=== PATIENT | male | born 1955 | race Caucasian/White ===

== ENCOUNTER 2017-06-05 16:00 | Observation (INO) | payer MEDICAID, OTHER ==
[~2017-06-05] VITALS: Ht 185.4 cm; Wt 62.3 kg
[~2017-06-05 16:00] MED LIST: AMOX500T PO; ASPI325T PO; HYDR-3535 PO; LEVO.05 PO; XANA2TAB2 PO; blood pressure PO
[2017-06-05 16:04] VITALS: BP 188/86; PULSE 69; RESP 14; TEMP 97.7; O2SAT 69; O2SAT 99
[2017-06-05 17:00] LABS: AUTOMATED NEUTROPHIL # 5.5 TH/MM3 (1.8-7.7); BASOPHIL % 0.4 % (0.0-2.0); EOSINOPHIL # 0.1 TH/MM3 (0-0.4); EOSINOPHIL % 1.5 % (0.0-4.0); HEMATOCRIT 47.6 % (39.0-51.0); HEMOGLOBIN 16.1 GM/DL (13.0-17.0); LYMPH % 25.1 % (9.0-44.0); LYMPHOCYTE # 2.1 TH/MM3 (1.0-4.8); MEAN CELL VOLUME 84.6 FL (80.0-100.0); MEAN CORPUSCULAR HEMOGLOBIN 28.7 PG (27.0-34.0); MEAN CORPUSCULAR HGB CONC 33.9 % (32.0-36.0); MEAN PLATELET VOLUME 8.5 FL (7.0-11.0); MONO % 7.2 % (0.0-8.0); MONOCYTE # 0.6 TH/MM3 (0-0.9); NEUT % 65.8 % (16.0-70.0); PLATELET COUNT 273 TH/MM3 (150-450); RED BLOOD COUNT 5.63 MIL/MM3 (4.50-5.90); RED CELL DISTRIBUTION WIDTH 13.6 % (11.6-17.2); WHITE BLOOD COUNT 8.4 TH/MM3 (4.0-11.0)
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
[2017-06-05 17:18] LABS: ALKALINE PHOSPHATASE 97 U/L (45-117); TOTAL BILIRUBIN ADULT 0.4 MG/DL (0.2-1.0); TOTAL PROTEIN 8.2 GM/DL (6.4-8.2)
[2017-06-05 17:20] LABS: ALBUMIN 3.8 GM/DL (3.4-5.0); ALT (GPT) 43 U/L (12-78); AST (GOT) 29 U/L (15-37); BICARBONATE 29.4 MEQ/L (21.0-32.0); BLOOD UREA NITROGEN 10 MG/DL (7-18); CHLORIDE 103 MEQ/L (98-107); CREATININE 0.86 MG/DL (0.60-1.30); GLOMERULAR FILTRATION RATE 91 ML/MIN (>89); GLUCOSE,RANDOM 115 MG/DL (74-106); LIPASE 841 U/L (73-393); SODIUM (NA) 138 MEQ/L (136-145)
[2017-06-05] MEDS ORDERED: ONDANSETRON HCL 4 MG/2 ML VIAL IVP ONE (18:15)
[2017-06-05] MEDS ORDERED: MORPHINE SULFATE 2 MG/ML INJ IV PUSH ONE ×2 (18:15)
--- NOTE | 2017-06-05 18:45 | RADRPT ---
EXAM DATE/TIME: 06/05/2017 17:51 [place] COMPARISON: No previous studies available for comparison. INDICATIONS : Right upper quadrant pain. MEDICAL HISTORY : Hypertension. Gastroesophageal reflux disease. Chronic obstructive pulmonary disease. Migraines. Bridget iated discs. Alcohol abuse. SURGICAL HISTORY : Inguinal hernia repair. Skin cancer removal. ENCOUNTER: Initial ACUITY: 3 months PAIN SCORE: 3/10 LOCATION: Right upper quadrant MEASUREMENTS: LIVER: 14.8 cm length COMMON DUCT: 4 mm RIGHT KIDNEY: 10.5 x 4.8 x 4.4 cm FINDINGS: LIVER: Normal echotexture without focal lesion or ductal dilatation. COMMON DUCT: No intraluminal mass or stone visualized. GALLBLADDER: Contains no stones, demonstrates no wall thickening or pericholecystic fluid. PANCREAS: Hypoechoic lesion along the head measures 3.5 x 2.6 x 2.4 cm. There is ductal dilatation. RIGHT KIDNEY: No evidence of hydronephrosis, stone, or mass. CONCLUSION: 1. Low attenuation lesion along the pancreatic head measured 3.5 cm concerning for underlying mass. T here is dilatation of the main pancreatic duct. 2. No evidence for cholelithiasis. Vidal Richards MD on June 05, 2017 at 18:41 Board Certified Radiologist. This report was verified electronically.
[2017-06-05 19:08] VITALS: BP 129/94; PULSE 70; RESP 18; O2SAT 99
[2017-06-05] MEDS ORDERED: LEVO50TA4 PO (19:10)
[2017-06-05] MEDS ORDERED: METH10TA PO (19:10)
[2017-06-05] MEDS ORDERED: XANA2TAB2 PO (19:10)
[2017-06-05] MEDS ORDERED: IOHEXOL 350 MG/ML 10 ML VIAL (for RAD DIAG) IVCONTRAST ONE (19:31)
[2017-06-05] MEDS ORDERED: ACETAMINOPHEN 325 MG TAB PO PRN (20:00)
[2017-06-05] MEDS ORDERED: ONDANSETRON HCL 4 MG/2 ML VIAL IVP PRN (20:00)
[2017-06-05] MEDS ORDERED: LACTULOSE SYRUP 20 GM/30 ML CUP PO PRN (20:00)
[2017-06-05] MEDS ORDERED: MAGNESIUM HYDROXIDE SUSP 30 ML CUP PO PRN (20:00)
[2017-06-05] MEDS ORDERED: SODIUM CHLORIDE 0.9% FLUSH 10 ML FLUSH IV FLUSH PRN (20:00)
[2017-06-05] MEDS ORDERED: BISACODYL 10 MG SUPP RECTAL PRN (20:00)
[2017-06-05] MEDS ORDERED: SENNOSIDES 8.6 MG TAB PO PRN (20:00)
[2017-06-05] MEDS ORDERED: NALOXONE HCL 0.4 MG/ML AMP IV PUSH PRN (20:00)
[2017-06-05 21:13] VITALS: BP 179/105; PULSE 54; RESP 16; TEMP 97.6; O2SAT 98
--- NOTE | 2017-06-05 21:55 | HHI.HP ---
[facility] Primary Care Physician Tati Jones MD Admission Diagnosis Adominal pain, Pancreatic mass Diagnoses: Travel History International Travel<30 Days: No Contact w/Intl Traveler <30 Da: No Traveled to Known Affected Are: No History of Present Illness 61-year-old male with a past medical history of hypothyroidism, anxiety and chronic pain presents to the emergency department with intractable abdominal pain. The patient reports that he has had abdominal pain for the past 3 months , worse in the epigastric area that radiates to his back. He was seen in [facility] on 06/[address] of the abdomen/pelvis showed heterogeneous enlargement of the pancreatic head with associated duct dilation suspicious for malignancy. The patient was discharged with instructions to follow-up as an outpatient. He reports that over the past 24 hours his abdominal pain since acutely worsened. He denies any nausea/vomiting. Denies anorexia. Has a 100 pound unintentional weight loss over the past year. Lipase elevated at 841. Review of Systems Denies fever or chills Denies blurry vision, otorrhea, rhinorrhea Denies sore throat and cough No chest pain, palpitations, shortness of breath Positive abdominal pain Denies constipation/diarrhea/nausea/vomiting Denies muscle pain/weakness No rashes Past Family Social History Past Medical History Chronic back pain, on methadone Anxiety Hypothyroidism Past Surgical History None Reported Medications Reported Meds & Active Scripts Active Reported Levothyroxine (Levothyroxine Sodium) 50 Mcg Tab 50 Mcg PO DAILY Methadone (Methadone HCl) 10 Mg Tab 10 Mg PO DAILY Xanax (Alprazolam) 2 Mg Tab 2 Mg PO BID PRN Allergies: Coded Allergies: No Known Allergies (Verified Allergy, Unknown, 06/05/17) Family History Mom with CAD Social History Smokes approximately a half a pack per day. History of alcohol abuse with approximately 4 beers daily. Patient reports his alcohol intake has decreased over the past 3 months since abdominal pain has worsened. Denies marijuana or illicit drugs. Physical Exam Vital Signs Vital Signs Date Time Temp Pulse Resp B/P (MAP) Pulse Ox O2 Delivery O2 Flow Rate FiO2 06/05/17 21:13 97.6 54 16 179/105 (129) 98 06/05/17 21:01 06/05/17 19:08 70 18 129/94 (106) 99 Room Air 06/05/17 16:04 97.7 69 14 188/86 (120) 99 Physical Exam GENERAL: Thin, male lying in bed SKIN: No rashes, ecchymoses or lesions. Cool and dry. HEAD: Atraumatic. Normocephalic. No temporal or scalp tenderness. EYES: Pupils equal round and reactive. Extraocular motions intact. No scleral icterus. No injection or drainage. ENT: Nose without bleeding, purulent drainage or septal hematoma. Throat without erythema, tonsillar hypertrophy or exudate. Uvula midline. Airway patent. NECK: Trachea midline. No JVD or lymphadenopathy. Supple, nontender, no meningeal signs. CARDIOVASCULAR: Regular rate and rhythm without murmurs, gallops, or rubs. RESPIRATORY: Clear to auscultation. Breath sounds equal bilaterally. No wheezes , rales, or rhonchi. GASTROINTESTINAL: Abdomen soft, mildly tender to palpation in the epigastric region, nondistended. No hepato-splenomegaly, or palpable masses. No guarding. MUSCULOSKELETAL: Extremities without clubbing, cyanosis, or edema. No joint tenderness, effusion, or edema noted. No calf tenderness. NEUROLOGICAL: Awake and alert. Cranial nerves II through XII intact. Motor and sensory grossly within normal limits. Normal speech. Laboratory Laboratory Tests Test 06/05/17 16:36 White Blood Count 8.4 Red Blood Count 5.63 Hemoglobin 16.1 Hematocrit 47.6 Mean Corpuscular Volume 84.6 Mean Corpuscular Hemoglobin 28.7 Mean Corpuscular Hemoglobin Concent 33.9 Red Cell Distribution Width 13.6 Platelet Count 273 Mean Platelet Volume 8.5 Neutrophils (%) (Auto) 65.8 Lymphocytes (%) (Auto) 25.1 Monocytes (%) (Auto) 7.2 Eosinophils (%) (Auto) 1.5 Basophils (%) (Auto) 0.4 Neutrophils # (Auto) 5.5 Lymphocytes # (Auto) 2.1 Monocytes # (Auto) 0.6 Eosinophils # (Auto) 0.1 Basophils # (Auto) 0.0 CBC Comment DIFF FINAL Differential Comment Blood Urea Nitrogen 10 Creatinine 0.86 Random Glucose 115 Total Protein 8.2 Albumin 3.8 Calcium Level 9.0 Alkaline Phosphatase 97 Aspartate Amino Transf (AST/SGOT) 29 Alanine Aminotransferase (ALT/SGPT) 43 Total Bilirubin 0.4 Sodium Level 138 Potassium Level 4.2 Chloride Level 103 Carbon Dioxide Level 29.4 Anion Gap 6 Estimat Glomerular Filtration Rate 91 Lipase 841 Result Diagram: 06/05/17 1636 06/05/17 1636 Caprini VTE Risk Assessment Caprini VTE Risk Assessment: No/Low Risk (score <= 1) Caprini Risk Assessment Model Point Value = 1 Point Value = 2 Point Value = 3 Point Value = 5 Age 41-60 Minor surgery BMI > 25 kg/m2 Swollen legs Varicose veins or History of unexplained or recurrent spontaneous Oral contraceptives or hormone replacement Sepsis (< 1 month) Serious lung disease, including pneumonia (< 1 month) Abnormal pulmonary function Acute myocardial infarction Congestive heart failure (< 1 month) History of inflammatory bowel disease Medical patient at bed rest Age 61-74 Arthroscopic surgery Major open surgery (> 45 min) Laparoscopic surgery (> 45 min) Malignancy Confined to bed (> 72 hours) Immobilizing plaster cast Central venous access Age >= 75 History of VTE Family history of VTE Factor V Leiden Prothrombin [id number] Lupus anticoagulant Anticardiolipin antibodies Elevated serum homocysteine Heparin-induced thrombocytopenia Other congenital or acquired thrombophilia Stroke (< 1 month) Elective arthroplasty Hip, pelvis, or leg fracture Acute spinal cord injury (< 1 month) Prophylaxis Regimen Total Risk Factor Score Risk Level Prophylaxis Regimen 0-1 Low Early ambulation 2 Moderate Order ONE of the following: *Sequential Compression Device (SCD) *Heparin 5000 units SQ BID 3-4 Higher Order ONE of the following medications: *Heparin 5000 units SQ TID *Enoxaparin/Lovenox 40 mg SQ daily (WT < 150 kg, CrCl > 30 mL/min) *Enoxaparin/Lovenox 30 mg SQ daily (WT < 150 kg, CrCl > 10-29 mL/min) *Enoxaparin/Lovenox 30 mg SQ BID (WT < 150 kg, CrCl > 30 mL/min) AND/OR *Sequential Compression Device (SCD) 5 or more Highest Order ONE of the following medications: *Heparin 5000 units SQ TID (Preferred with Epidurals) *Enoxaparin/Lovenox 40 mg SQ daily (WT < 150 kg, CrCl > 30 mL/min) *Enoxaparin/Lovenox 30 mg SQ daily (WT < 150 kg, CrCl > 10-29 mL/min) *Enoxaparin/Lovenox 30 mg SQ BID (WT < 150 kg, CrCl > 30 mL/min) AND *Sequential Compression Device (SCD) Assessment and Plan Assessment and Plan Assessment/plan: 1. Intractable abdominal pain/pancreatic mass CT of the abdomen/pelvis done on 06/03 at [facility] showed heterogeneous enlargement of the pancreatic head with associated pancreatic duct dilation suspicious for pancreatic neoplasm. Prominent pancreatic lymph nodes. Gallbladder ultrasound showed low attenuation lesions along the pancreatic head measuring 3.5 cm concerning for underlying mass with dilation of the main pancreatic duct Medical oncology consulted, appreciate recommendations Morphine for pain 2. Hypothyroidism Continue home Synthroid 3. Chronic pain Patient reports he takes 10 mg of methadone daily Nursing to contact pharmacy to confirm prior to restarting patient's methadone 4. Anxiety Patient reports he has not needed his Xanax recently Holding at this time 5. History of alcohol abuse [facility] Protocol Thiamine/folate/multivitamin FEN Heart healthy diet Electrolytes: monitor and replete prn SCDs Fatoumata Ashford MD Jun 05, 2017 21:55
[2017-06-05] MEDS: DOCUSATE SODIUM 50 MG/SENNA 8.6 MG TAB PO SCH (21:59)
[2017-06-05] MEDS ORDERED: LORazepam 1 MG TAB PO PRN (22:00)
[2017-06-05] MEDS ORDERED: FLUMAZENIL 0.5 MG/5 ML VIAL IV PUSH PRN (22:00)
[2017-06-05] MEDS ORDERED: LORazepam 2 MG TAB PO PRN (22:00)
[2017-06-05] MEDS ORDERED: LORazepam 2 MG/ML VIAL IV PUSH PRN ×4 (22:00)
[2017-06-05] MEDS: HEPARIN SODIUM - SQ 10,000 UNITS/ML VIAL SQ SCH (22:00)
[2017-06-05] MEDS: SODIUM CHLORIDE 0.9% FLUSH 10 ML FLUSH IV FLUSH SCH (22:01)
[2017-06-05] MEDS: MORPHINE SULFATE 2 MG/ML INJ IV PUSH PRN (22:22)
[2017-06-05 23:21] VITALS: BP 136/81; PULSE 63; RESP 17; TEMP 97.9; O2SAT 97
[2017-06-06] MEDS: LEVOTHYROXINE SODIUM 50 MCG TAB PO SCH (05:04)
[2017-06-06] MEDS: MORPHINE SULFATE 2 MG/ML INJ IV PUSH PRN ×5 (05:05→17:49)
[2017-06-06 05:47] VITALS: BP 154/77; PULSE 55; RESP 16; TEMP 98.4; O2SAT 99
[2017-06-06 05:58] LABS: AUTOMATED NEUTROPHIL # 3.4 TH/MM3 (1.8-7.7); BASOPHIL % 0.6 % (0.0-2.0); EOSINOPHIL # 0.3 TH/MM3 (0-0.4); EOSINOPHIL % 4.1 % (0.0-4.0); HEMATOCRIT 40.5 % (39.0-51.0); HEMOGLOBIN 14.1 GM/DL (13.0-17.0); LYMPH % 38.4 % (9.0-44.0); LYMPHOCYTE # 2.8 TH/MM3 (1.0-4.8); MEAN CELL VOLUME 83.9 FL (80.0-100.0); MEAN CORPUSCULAR HEMOGLOBIN 29.2 PG (27.0-34.0); MEAN CORPUSCULAR HGB CONC 34.8 % (32.0-36.0); MEAN PLATELET VOLUME 8.7 FL (7.0-11.0); MONO % 9.3 % (0.0-8.0); MONOCYTE # 0.7 TH/MM3 (0-0.9); NEUT % 47.6 % (16.0-70.0); PLATELET COUNT 239 TH/MM3 (150-450); RED BLOOD COUNT 4.82 MIL/MM3 (4.50-5.90); RED CELL DISTRIBUTION WIDTH 12.8 % (11.6-17.2); WHITE BLOOD COUNT 7.2 TH/MM3 (4.0-11.0)
[2017-06-06 06:20] LABS: ALBUMIN 3.3 GM/DL (3.4-5.0); ALT (GPT) 36 U/L (12-78); AST (GOT) 24 U/L (15-37); BICARBONATE 28.2 MEQ/L (21.0-32.0); BLOOD UREA NITROGEN 9 MG/DL (7-18); CALCIUM 8.7 MG/DL (8.5-10.1); CHLORIDE 106 MEQ/L (98-107); CREATININE 0.79 MG/DL (0.60-1.30); GLOMERULAR FILTRATION RATE 100 ML/MIN (>89); GLUCOSE,RANDOM 121 MG/DL (74-106); SODIUM (NA) 140 MEQ/L (136-145)
[2017-06-06 06:23] LABS: ALKALINE PHOSPHATASE 83 U/L (45-117); TOTAL BILIRUBIN ADULT 0.3 MG/DL (0.2-1.0); TOTAL PROTEIN 7.2 GM/DL (6.4-8.2)
[2017-06-06 07:59] VITALS: BP 150/82; PULSE 56; RESP 18; TEMP 98; O2SAT 99
[2017-06-06] MEDS: THIAMINE HCL 100 MG TAB PO SCH (08:16)
[2017-06-06] MEDS: FOLIC ACID 1 MG TAB PO SCH (08:16)
[2017-06-06] MEDS: MULTIVITAMIN TAB PO SCH (08:17)
[2017-06-06] MEDS: DOCUSATE SODIUM 50 MG/SENNA 8.6 MG TAB PO SCH ×2 (08:18→20:30)
[2017-06-06] MEDS: HEPARIN SODIUM - SQ 10,000 UNITS/ML VIAL SQ SCH ×2 (08:18→20:30)
[2017-06-06] MEDS: SODIUM CHLORIDE 0.9% FLUSH 10 ML FLUSH IV FLUSH SCH ×2 (08:18→20:31)
--- NOTE | 2017-06-06 09:55 | HHI.PR ---
Subjective Remarks in no acute distress. complaining of some epigastric pain. has some back pain. no nausea or vomiting. Objective Vitals Vital Signs Date Time Temp Pulse Resp B/P (MAP) Pulse Ox O2 Delivery O2 Flow Rate FiO2 06/06/17 07:59 98.0 56 18 150/82 (104) 99 06/06/17 05:47 98.4 55 16 154/77 (102) 99 06/05/17 23:21 97.9 63 17 136/81 (99) 97 06/05/17 21:13 97.6 54 16 179/105 (129) 98 06/05/17 21:01 06/05/17 19:08 70 18 129/94 (106) 99 Room Air 06/05/17 16:04 97.7 69 14 188/86 (120) 99 Result Diagram: 06/06/17 0450 06/06/17 0450 Imaging Last Impressions Gall Bladder Ultrasound 06/05/17 0000 Signed Impressions: Service Date/Time: Monday, June 05, 2017 17:51 - CONCLUSION: 1. Low attenuation lesion along the pancreatic head measured 3.5 cm concerning for underlying mass. There is dilatation of the main pancreatic duct. 2. No evidence for cholelithiasis. Vidal Richards MD Objective Remarks GENERAL: This is a well-nourished, well-developed patient, in no apparent distress. CARDIOVASCULAR: Regular rate and regular rhythm without murmurs, gallops, or rubs. RESPIRATORY: Clear to auscultation. Breath sounds equal bilaterally. No wheezes , rales, or rhonchi. GASTROINTESTINAL: Abdomen soft, mild epigastric tenderness, nondistended. Normal, active bowel sounds MUSCULOSKELETAL: Extremities without clubbing, cyanosis, or edema. NEURO: Alert & Oriented x4 to person, place, time, situation. Moves all ext x4 Medications and IVs Inpatient Medications Acetaminophen (Tylenol) 650 mg Q4H PRN PO TEMP > 100.4; Start 06/05/17 at 20:00 Bisacodyl (Dulcolax Supp) 10 mg DAILY PRN RECTAL SEVERE CONSITIPATION; Start at 20:00 Flumazenil (Romazicon Inj) 0.2 mg Q1M PRN IV PUSH SEE LABEL COMMENTS; Start 06/05/17 at 22:00 Folic Acid (Folate) 1 mg DAILY PO Last administered on 06/06/17at 08:16; Start at 09:00 Heparin Sodium (Porcine) (Heparin Inj) 5,000 units Q12H SQ Last administered on 06/06/17at 08:18; Start 06/05/17 at 20:00 Influenza Virus Vaccine (Flu (Quadrivalent) Vaccine Inj) 0.5 ml ONCE ONCE IM ; Start 06/07/17 at 10:00; Stop 06/07/17 at 10:01 Lactulose (Lactulose Liq) 30 ml DAILY PRN PO SEVERE CONSITIPATION; Start at 20:00 Levothyroxine Sodium (Synthroid) 50 mcg DAILY@0600 PO Last administered on at 05:04; Start 06/06/17 at 06:00 Lorazepam (Ativan Inj) 2 mg Q15M PRN IV PUSH CIWA > 20; Start 06/05/17 at 22:00 Lorazepam (Ativan) 2 mg Q2H PRN PO CIWA 11-14; Start 06/05/17 at 22:00 Magnesium Hydroxide (Milk Of Magnesia Liq) 30 ml Q12H PRN PO Mild constipation ; Start 06/05/17 at 20:00 Morphine Sulfate (Morphine Inj) 2 mg Q3H PRN IV PUSH pain 6-10 Last administered on 06/06/17at 08:17; Start 06/05/17 at 20:00 Multivitamins (Theragran) 1 tab DAILY PO Last administered on 06/06/17at 08:17; Start 06/06/17 at 09:00 Naloxone HCl (Narcan Inj) 0.4 mg UNSCH PRN IV PUSH SEE LABEL COMMENTS; Start at 20:00 Ondansetron HCl (Zofran Inj) 4 mg Q6H PRN IVP NAUSEA OR VOMITING; Start at 20:00 Pneumococcal Polyvalent Vaccine (Pneumovax-23 Inj) 25 mcg ONCE ONCE IM ; Start 06/07/17 at 10:00; Stop 06/07/17 at 10:01 Senna/Docusate Sodium (Alysha-Colace) 1 tab BID PO Last administered on 06/05/17at 21:59; Start 06/05/17 at 21:00 Sennosides (Senokot) 17.2 mg Q12H PRN PO Moderate constipation; Start 06/05/17 at 20:00 Sodium Chloride (NS Flush) 2 ml BID IV FLUSH Last administered on 06/06/17at 08: 18; Start 06/05/17 at 21:00 Thiamine HCl (Vitamin B1) 100 mg DAILY PO Last administered on 06/06/17at 08:16; Start 06/06/17 at 09:00 A/P Assessment and Plan A/P 1. Intractable abdominal pain/pancreatic mass CT of the abdomen/pelvis done on 06/03 at [facility] showed heterogeneous enlargement of the pancreatic head with associated pancreatic duct dilation suspicious for pancreatic neoplasm. Prominent pancreatic lymph nodes. Gallbladder ultrasound showed low attenuation lesions along the pancreatic head measuring 3.5 cm concerning for underlying mass with dilation of the main pancreatic duct Medical oncology consulted. will consult GI. will verify the methadone doase- Morphine for pain 2. Hypothyroidism Continue home Synthroid 3. Chronic pain Patient reports he takes 10 mg of methadone daily Nursing to contact pharmacy to confirm prior to restarting patient's methadone 4. Anxiety Patient reports he has not needed his Xanax recently Holding at this time 5. History of alcohol abuse [facility] Protocol Thiamine/folate/multivitamin 6. hypertension will start on lisinopril- continue to monitor and adjust the regimen as needed. DVT prophylaxis with SCDs. Pepe Underwood MD Jun 06, 2017 09:54
[2017-06-06 11:07] VITALS: BP 145/73; PULSE 62; RESP 18; TEMP 98; O2SAT 97
[2017-06-06] MEDS: LISINOPRIL 5 MG TAB PO SCH (11:40)
[2017-06-06] MEDS ORDERED: METH10TA PO (12:21)
[2017-06-06] MEDS ORDERED: LISI-519 PO (12:25)
[2017-06-06] MEDS ORDERED: RANI150T PO (12:25)
--- NOTE | 2017-06-06 14:11 | PD.CONS ---
HPI History of Present Illness This is a 61 year old male with hx ETOH abuse who presented with abd pain, weight loss. He has had abd pain for the last 3 months and weight loss 100lbs in last year, despite no change in PO intake. The pain has been constant. Denies n/v, loose stool, change in bowel habits, blood in stool, black tarry stool. Never had this pain before. Never had EGD or colonoscopy. Had CT at [facility] enlarged pancreatic head with associated ductal dilatation suspicious for malignancy and US 06/05/16 showed pancreatic head lesion. Admits hx drinking 4 beers daily until onset of the pain. PFSH Past Medical History Chronic back pain, on methadone Anxiety Hypothyroidism Past Surgical History None Coded Allergies: No Known Allergies (Verified Allergy, Unknown, 06/05/17) Family History Mom with CAD, thyroid cancer, colon cancer father with thyroid cancer Social History Smokes approximately a half a pack per day. History of alcohol abuse with approximately 4 beers daily. Patient reports his alcohol intake has decreased over the past 3 months since abdominal pain has worsened. Denies marijuana or illicit drugs. Review of Systems Constitutional: COMPLAINS OF: Weight loss Endocrine: DENIES: Polydipsia Eyes: DENIES: Blurred vision Ears, nose, mouth, throat: DENIES: Hearing loss Respiratory: DENIES: Cough Cardiovascular: DENIES: Chest pain Gastrointestinal: COMPLAINS OF: Abdominal pain, DENIES: Black stools, Bloody stools, Constipation, Diarrhea, Nausea, Vomiting, Anorexia Genitourinary: DENIES: Hematuria Musculoskeletal: DENIES: Joint Swelling Integumentary: DENIES: Jaundice Hematologic/lymphatic: DENIES: Bruising Immunologic/allergic: DENIES: Eczema Neurologic: DENIES: Abnormal gait Psychiatric: DENIES: Confusion GI Exam Vitals I&O Vital Signs Date Time Temp Pulse Resp B/P (MAP) Pulse Ox O2 Delivery O2 Flow Rate FiO2 06/06/17 11:07 98.0 62 18 145/73 (97) 97 06/06/17 07:59 98.0 56 18 150/82 (104) 99 06/06/17 05:47 98.4 55 16 154/77 (102) 99 06/05/17 23:21 97.9 63 17 136/81 (99) 97 06/05/17 21:13 97.6 54 16 179/105 (129) 98 06/05/17 21:01 06/05/17 19:08 70 18 129/94 (106) 99 Room Air 06/05/17 16:04 97.7 69 14 188/86 (120) 99 Imaging Last Impressions Gall Bladder Ultrasound 06/05/17 0000 Signed Impressions: Service Date/Time: Monday, June 05, 2017 17:51 - CONCLUSION: 1. Low attenuation lesion along the pancreatic head measured 3.5 cm concerning for underlying mass. There is dilatation of the main pancreatic duct. 2. No evidence for cholelithiasis. Vidal Richards MD Laboratory Test 06/05/17 16:36 06/06/17 04:50 White Blood Count 8.4 TH/MM3 7.2 TH/MM3 Red Blood Count 5.63 MIL/MM3 4.82 MIL/MM3 Hemoglobin 16.1 GM/DL 14.1 GM/DL Hematocrit 47.6 % 40.5 % Mean Corpuscular Volume 84.6 FL 83.9 FL Mean Corpuscular Hemoglobin 28.7 PG 29.2 PG Mean Corpuscular Hemoglobin Concent 33.9 % 34.8 % Red Cell Distribution Width 13.6 % 12.8 % Platelet Count 273 TH/MM3 239 TH/MM3 Mean Platelet Volume 8.5 FL 8.7 FL Neutrophils (%) (Auto) 65.8 % 47.6 % Lymphocytes (%) (Auto) 25.1 % 38.4 % Monocytes (%) (Auto) 7.2 % 9.3 % Eosinophils (%) (Auto) 1.5 % 4.1 % Basophils (%) (Auto) 0.4 % 0.6 % Neutrophils # (Auto) 5.5 TH/MM3 3.4 TH/MM3 Lymphocytes # (Auto) 2.1 TH/MM3 2.8 TH/MM3 Monocytes # (Auto) 0.6 TH/MM3 0.7 TH/MM3 Eosinophils # (Auto) 0.1 TH/MM3 0.3 TH/MM3 Basophils # (Auto) 0.0 TH/MM3 0.0 TH/MM3 CBC Comment DIFF FINAL DIFF FINAL Differential Comment Blood Urea Nitrogen 10 MG/DL 9 MG/DL Creatinine 0.86 MG/DL 0.79 MG/DL Random Glucose 115 MG/DL 121 MG/DL Total Protein 8.2 GM/DL 7.2 GM/DL Albumin 3.8 GM/DL 3.3 GM/DL Calcium Level 9.0 MG/DL 8.7 MG/DL Alkaline Phosphatase 97 U/L 83 U/L Aspartate Amino Transf (AST/SGOT) 29 U/L 24 U/L Alanine Aminotransferase (ALT/SGPT) 43 U/L 36 U/L Total Bilirubin 0.4 MG/DL 0.3 MG/DL Sodium Level 138 MEQ/L 140 MEQ/L Potassium Level 4.2 MEQ/L 3.8 MEQ/L Chloride Level 103 MEQ/L 106 MEQ/L Carbon Dioxide Level 29.4 MEQ/L 28.2 MEQ/L Anion Gap 6 MEQ/L 6 MEQ/L Estimat Glomerular Filtration Rate 91 ML/MIN 100 ML/MIN Lipase 841 U/L Physical Examination HEENT: PERRL; normocephalic; atraumatic; no jaundice. CHEST: CTA CARDIAC: RRR ABDOMEN: Soft, nondistended, nontender; no hepatosplenomegaly; bowel sounds are present in all four quadrants. EXTREMITIES: No clubbing, cyanosis, or edema. SKIN: Normal; no rash; no jaundice. BEN DAY ARTIST: No focal deficits; alert and oriented times three. Assessment and Plan Plan ASSESSMENT - abd pain, weight loss - 3 months worsening abd pain, loss 100lbs in last year. CT abd with contrast 06/03/17 [facility] showed enlarged pancreatic head with associated ductal dilatation suspicious for malignancy, prominent lymph nodes US 06/05/17 showed pancreatic head lesion. elevated lipase. poss neuroendocrine tumor. oncology consult pending PLAN - CT chest w/ contrast - ca 19-9 - EUS w/ FNA Sunday - obtain consent - NPO after midnight sunday night - monitor labs - supportive care - further recs as case unfolds Pt discussed with Dr Alston and this note is written on his behalf Melinda Russ Jun 06, 2017 14:11
[2017-06-06] MEDS ORDERED: PILL SPLITTER OTHER PRN (14:30)
[2017-06-06] MEDS ORDERED: HYDR-3516 PO (14:33)
--- NOTE | 2017-06-06 15:53 | RADRPT ---
EXAM DATE/TIME: 06/06/2017 15:37 [place] COMPARISON: US ABDOMEN - GALLBLADDER, June 05, 2017, 17:51. INDICATIONS : Pancreatic mass; evaluate for metastases. IV CONTRAST: 71 cc Omnipaque 350 (iohexol) IV RADIATION DOSE: 3.36 CTDIvol (mGy) MEDICAL HISTORY : Hypertension. Chronic obstructive pulmonary disease. SURGICAL HISTORY : None. ENCOUNTER: Initial ACUITY: 1 day PAIN SCALE: 0/10 LOCATION: chest TECHNIQUE: Volumetric scanning of the chest was performed. Using automated exposure control and adjustment of t he mA and/or kV according to patient size, radiation dose was kept as low as reasonably achievable to obtain optimal diagnostic quality images. DICOM format image data is available electronically for review and comparison. Follow-up recommendations for detected pulmonary nodules are based at a minimum on nodule size and pa tient risk factors according to Fleischner Society Guidelines. FINDINGS: LUNGS: Moderate emphysematous changes are noted bilaterally. No pulmonary nodule or mass is noted. No alveol ar or interstitial infiltrate is noted. No pulmonary edema is noted. PLEURA: There is no pleural thickening or pleural effusion. MEDIASTINUM: There is evidence of soft tissue density within the retroesophageal space at the level of the aortic arch measuring 2.2 x 2.2 x 3.7 cm consistent with probable lymphadenopathy. PET/CT scan may be helpfu l for further evaluation of this finding if clinically indicated. AXILLAE: Within normal limits. No lymphadenopathy. SKELETAL: Degenerative changes are noted throughout the thoracic spine. MISCELLANEOUS: The visualized upper abdominal organs demonstrate no acute abnormality. CONCLUSION: 1. Soft tissue density within the retroesophageal space at the level of the aortic arch measuring 2.2 x 2.2 x 3.7 cm consistent with probable lymphadenopathy. PET/CT scan may be helpful for further eval uation of this finding if clinically indicated. 2. Moderate emphysematous changes bilaterally. 3. No pulmonary nodule or mass. 4. Degenerative changes throughout the thoracic spine. Paulino Banerjee MD on June 06, 2017 at 15:45 Board Certified Radiologist. This report was verified electronically.
[2017-06-06 16:41] VITALS: BP 132/74; PULSE 60; RESP 18; TEMP 97.8; O2SAT 98
[2017-06-06 20:56] VITALS: BP 138/71; PULSE 57; RESP 18; TEMP 98.2; O2SAT 97
[2017-06-06] MEDS ORDERED: METHADONE HCL 10 MG TAB PO SCH (21:00)
[2017-06-07 01:15] VITALS: BP 110/69; PULSE 60; RESP 18; TEMP 97.6; O2SAT 96
[2017-06-07 03:42] VITALS: BP 120/58; PULSE 63; RESP 18; TEMP 97.6; O2SAT 98
[2017-06-07] MEDS: MORPHINE SULFATE 2 MG/ML INJ IV PUSH PRN (03:56)
[2017-06-07] MEDS: LEVOTHYROXINE SODIUM 50 MCG TAB PO SCH (06:30)
--- NOTE | 2017-06-07 06:43 | MB ---
cc: BEATRIZ BONILLA DATE OF CONSULTATION 06/06/2017 REASON FOR CONSULTATION Patient has a pancreatic head mass. HISTORY OF PRESENT ILLNESS This is a 61-year-old male with a history of hypothyroidism, anxiety, chronic back pain who is currently on methadone. He also has a history of alcohol abuse. He presents to the emergency department with a three month history of abdominal pain, anorexia, weight loss of 100 pounds over the past one year and decreased appetite. He had a CT scan of the abdomen and pelvis at [facility] which revealed an enlarged pancreatic head mass with associated ductal dilatation suspicious for malignancy. An ultrasound also confirmed a pancreatic head lesion. He states that he has cut back on his drinking habits. He also smokes a half have to one pack of cigarettes per day and has done that for more than 20 years. On presentation here at [place], he had a gallbladder ultrasound which showed a low attenuation mass along the pancreatic head measuring 3.5 cm concerning for underlying mass. There was no dilatation of the main pancreatic duct. CT of the chest was also completed on admission which shows a soft tissue density within the rectal peritoneal space at the level of the aortic arch which was 2.2 x 2.2 x 3.7 cm which was consistent with lymphadenopathy. There were no pulmonary masses seen. The patient is currently being evaluated by gastroenterology. REVIEW OF SYSTEMS A comprehensive review of systems was completed which is negative except as described in the HPI. PAST MEDICAL HISTORY 1. Chronic back pain 2. Anxiety 3. Hypothyroidism PAST SURGICAL HISTORY None FAMILY HISTORY Significant for thyroid cancer, coronary artery disease and colon cancer. SOCIAL HISTORY Smokes half to one pack per day for more than 20 years. He drinks four to six beers daily. MEDICATIONS Inpatient medications were reviewed and they are documented in the EMR. ALLERGIES No known drug allergies. PHYSICAL EXAMINATION In no apparent distress. HEENT: Pupils are equal, round, reactive to light. EOMI. No thrush. No oral lesions. NECK: Supple. No JVD, no bruits. No lymphadenopathy. CHEST: Clear to auscultation bilaterally. CARDIAC: S1-S2 regular rate and rhythm. ABDOMEN: Nontender, nondistended. Bowel sounds are present. EXTREMITIES: Without any edema, erythema or cyanosis. SKIN: Without any petechiae, lesion or bruises. NEUROLOGIC: No focal deficits. PSYCHIATRIC: Mood and affect is appropriate. IMAGING STUDIES Was reviewed in the EMR discussed the HPI above. ASSESSMENT/PLAN This is a 61-year-old male with a history of alcohol abuse, chronic back pain, anxiety and hypothyroidism who presents with a three-month history of weight loss and anorexia, and abdominal pain. He was found to have pancreatic head mass. 1. Large pancreatic head mass which is consistent with pancreatic malignancy. CT of the abdomen and pelvis was reviewed. There is prominent lymphadenopathy seen in the adjacent area of the mass. I would recommend an endoscopic ultrasound with FNA biopsy of this mass. We will also obtain an MRI of the abdomen to better assess for any lymphadenopathy. This patient may need an outpatient PET scan. I would also recommend evaluation by surgical oncology. I explained to him that if the disease is deemed unresectable, then systemic chemotherapy and radiation would be an option. I will have further discussion with him after we have the results of the MRI and the endoscopic ultrasound. Check CA19-9 levels. The patient should follow up in the oncology clinic in one to two weeks after discharge. MD MADISON Covarrubias/PAUL /2:02 AM /6:17 AM MTDJihan
[2017-06-07] MEDS ORDERED: METHADONE HCL 10 MG TAB PO SCH (09:00)
[2017-06-07] MEDS: SODIUM CHLORIDE 0.9% FLUSH 10 ML FLUSH IV FLUSH SCH (09:09)
[2017-06-07] MEDS: MULTIVITAMIN TAB PO SCH (09:09)
[2017-06-07] MEDS: HEPARIN SODIUM - SQ 10,000 UNITS/ML VIAL SQ SCH (09:09)
[2017-06-07] MEDS: THIAMINE HCL 100 MG TAB PO SCH (09:10)
[2017-06-07] MEDS: FOLIC ACID 1 MG TAB PO SCH (09:10)
[2017-06-07] MEDS: LISINOPRIL 5 MG TAB PO SCH (09:10)
[2017-06-07] MEDS: DOCUSATE SODIUM 50 MG/SENNA 8.6 MG TAB PO SCH (09:11)
--- NOTE | 2017-06-07 09:26 | HHI.PR ---
Subjective Remarks in no acute distress. still with some epigastric pain. no other complaints. Objective Vitals Vital Signs Date Time Temp Pulse Resp B/P (MAP) Pulse Ox O2 Delivery O2 Flow Rate FiO2 06/07/17 03:42 97.6 63 18 120/58 (78) 98 06/07/17 01:15 97.6 60 18 110/69 (83) 96 06/06/17 20:56 98.2 57 18 138/71 (93) 97 06/06/17 16:41 97.8 60 18 132/74 (93) 98 06/06/17 11:07 98.0 62 18 145/73 (97) 97 Result Diagram: 06/06/17 0450 06/06/17 0450 Imaging Last Impressions Chest CT 06/06/17 0000 Signed Impressions: Service Date/Time: Tuesday, June 06, 2017 15:37 - CONCLUSION: 1. Soft tissue density within the retroesophageal space at the level of the aortic arch measuring 2.2 x 2.2 x 3.7 cm consistent with probable lymphadenopathy. PET/CT scan may be helpful for further evaluation of this finding if clinically indicated. 2. Moderate emphysematous changes bilaterally. 3. No pulmonary nodule or mass. 4. Degenerative changes throughout the thoracic spine. Paulino Banerjee MD Gall Bladder Ultrasound 06/05/17 0000 Signed Impressions: Service Date/Time: Monday, June 05, 2017 17:51 - CONCLUSION: 1. Low attenuation lesion along the pancreatic head measured 3.5 cm concerning for underlying mass. There is dilatation of the main pancreatic duct. 2. No evidence for cholelithiasis. Vidal Richards MD Objective Remarks GENERAL: This is a well-nourished, well-developed patient, in no apparent distress. CARDIOVASCULAR: Regular rate and regular rhythm without murmurs, gallops, or rubs. RESPIRATORY: Clear to auscultation. Breath sounds equal bilaterally. No wheezes , rales, or rhonchi. GASTROINTESTINAL: Abdomen soft, mild epigastric tenderness, nondistended. Normal, active bowel sounds MUSCULOSKELETAL: Extremities without clubbing, cyanosis, or edema. NEURO: Alert & Oriented x4 to person, place, time, situation. Moves all ext x4 Medications and IVs Inpatient Medications Acetaminophen (Tylenol) 650 mg Q4H PRN PO TEMP > 100.4; Start 1/2/18 at 20:00 Bisacodyl (Dulcolax Supp) 10 mg DAILY PRN RECTAL SEVERE CONSITIPATION; Start at 20:00 Chlorhexidine Gluconate (Chlorhexidine 2% Cloth) 3 pack TRANSPORTATION DISPATCHER PRN TOPICAL SEE LABEL COMMENTS; Start 06/07/17 at 23:45; Stop 06/10/17 at 23:44 Flumazenil (Romazicon Inj) 0.2 mg Q1M PRN IV PUSH SEE LABEL COMMENTS; Start 06/05/17 at 22:00 Folic Acid (Folate) 1 mg DAILY PO Last administered on 06/07/17at 09:10; Start at 09:00 Heparin Sodium (Porcine) (Heparin Inj) 5,000 units Q12H SQ Last administered on 06/07/17at 09:09; Start 06/05/17 at 20:00 Influenza Virus Vaccine (Flu (Quadrivalent) Vaccine Inj) 0.5 ml ONCE ONCE IM ; Start 06/07/17 at 10:00; Stop 06/07/17 at 10:01 Lactated Ringer's 1,000 ml @ 30 mls/hr Q24H PRN IV SEE LABEL COMMENTS; Start at 23:45; Stop 06/10/17 at 23:44 Lactulose (Lactulose Liq) 30 ml DAILY PRN PO SEVERE CONSITIPATION; Start at 20:00 Levothyroxine Sodium (Synthroid) 50 mcg DAILY@0600 PO Last administered on at 06:30; Start 06/06/17 at 06:00 Lisinopril (Prinivil) 5 mg DAILY PO Last administered on 06/07/17at 09:10; Start 06/06/17 at 10:00 Lorazepam (Ativan Inj) 2 mg Q15M PRN IV PUSH CIWA > 20; Start 06/05/17 at 22:00 Lorazepam (Ativan) 2 mg Q2H PRN PO CIWA 11-14; Start 06/05/17 at 22:00 Magnesium Hydroxide (Milk Of Magnesia Liq) 30 ml Q12H PRN PO Mild constipation ; Start 06/05/17 at 20:00 Methadone HCl (Dolophine) 25 mg HS PO Last administered on 06/06/17at 20:30; Start 06/06/17 at 21:00 Miscellaneous (Pill Splitter) 1 ea UNSCH PRN OTHER SEE LABEL COMMENTS; Start at 14:30 Morphine Sulfate (Morphine Inj) 2 mg Q3H PRN IV PUSH breatkthrough pain Last administered on 06/07/17at 03:56; Start 06/05/17 at 20:00 Multivitamins (Theragran) 1 tab DAILY PO Last administered on 06/07/17at 09:09; Start 06/06/17 at 09:00 Naloxone HCl (Narcan Inj) 0.4 mg UNSCH PRN IV PUSH SEE LABEL COMMENTS; Start at 20:00 Ondansetron HCl (Zofran Inj) 4 mg Q6H PRN IVP NAUSEA OR VOMITING; Start at 20:00 Pneumococcal Polyvalent Vaccine (Pneumovax-23 Inj) 25 mcg ONCE ONCE IM ; Start 06/07/17 at 10:00; Stop 06/07/17 at 10:01 Povidone Iodine (Betadine 5% Antisepsis Kit) 1 applic TRANSPORTATION DISPATCHER PRN EACH NARE SEE LABEL COMMENTS; Start 06/07/17 at 23:45; Stop 06/10/17 at 23:44 Senna/Docusate Sodium (Alysha-Colace) 1 tab BID PO Last administered on 06/07/17at 09:11; Start 06/05/17 at 21:00 Sennosides (Senokot) 17.2 mg Q12H PRN PO Moderate constipation; Start 06/05/17 at 20:00 Sodium Chloride 500 ml @ 30 mls/hr [id number] PRN IV SEE LABEL COMMENTS; Start 06/07/17 at 23:45; Stop 06/10/17 at 23:44 Sodium Chloride (NS Flush) 2 ml BID IV FLUSH Last administered on 06/07/17at 09: 09; Start 06/05/17 at 21:00 Thiamine HCl (Vitamin B1) 100 mg DAILY PO Last administered on 06/07/17at 09:10; Start 06/06/17 at 09:00 A/P Assessment and Plan A/P 1. Intractable abdominal pain/pancreatic mass CT of the abdomen/pelvis done on 06/03 at [facility] showed heterogeneous enlargement of the pancreatic head with associated pancreatic duct dilation suspicious for pancreatic neoplasm. Prominent pancreatic lymph nodes. Gallbladder ultrasound showed low attenuation lesions along the pancreatic head measuring 3.5 cm concerning for underlying mass with dilation of the main pancreatic duct Medical oncology and GI consults appreciated. needs EUS- continue with pain control. 2. Hypothyroidism Continue home Synthroid 3. Chronic pain continue methadone. 4. Anxiety Patient reports he has not needed his Xanax recently Holding at this time 5. History of alcohol abuse [facility] Protocol Thiamine/folate/multivitamin 6. hypertension continue lisinopril- continue to monitor and adjust the regimen as needed. DVT prophylaxis with SCDs. Discharge Planning dc home when ok with GI. f/u with PCP, GI and oncology as outpatient. Pepe Underwood MD Jun 07, 2017 09:26
[2017-06-07] MEDS ORDERED: HYDR-3366 PO (09:31)
[2017-06-07] MEDS ORDERED: THIA100 PO (09:31)
[2017-06-07] MEDS ORDERED: THERTAB15 PO (09:31)
[2017-06-07 09:56] VITALS: PULSE 68; RESP 15; TEMP 96.3; O2SAT 90
[2017-06-07] MEDS ORDERED: INFLUENZA VIRUS VACCINE (QUADRIVALENT) 0.5 ML SYR IM ONE (10:00)
[2017-06-07] MEDS ORDERED: PNEUMOCOCCAL POLYVALENT INJ 25 MCG/0.5 ML SYR IM ONE (10:00)
--- NOTE | 2017-06-07 11:42 | HHI.DS ---
Discharge Summary Admission Date Jun 05, 2017 at 19:30 Discharge Date: Jun 07, 2017 Admitting Diagnosis Adominal pain, Pancreatic mass (1) Pancreatic mass ICD Code: K86.9 - Disease of pancreas, unspecified Diagnosis: Principal Status: Acute Procedures none Brief History - From Admission 61-year-old male with a past medical history of hypothyroidism, anxiety and chronic pain presents to the emergency department with intractable abdominal pain. The patient reports that he has had abdominal pain for the past 3 months , worse in the epigastric area that radiates to his back. He was seen in [facility] on 06/[address] of the abdomen/pelvis showed heterogeneous enlargement of the pancreatic head with associated duct dilation suspicious for malignancy. The patient was discharged with instructions to follow-up as an outpatient. He reports that over the past 24 hours his abdominal pain since acutely worsened. He denies any nausea/vomiting. Denies anorexia. Has a 100 pound unintentional weight loss over the past year. Lipase elevated at 841. CBC/BMP: 06/06/17 0450 06/06/17 0450 Significant Findings Laboratory Tests Test 06/05/17 16:36 06/06/17 04:50 06/07/17 07:08 Random Glucose 115 MG/DL (74-106) 121 MG/DL (74-106) Lipase 841 U/L (73-393) Monocytes (%) (Auto) 9.3 % (0.0-8.0) Eosinophils (%) (Auto) 4.1 % (0.0-4.0) Albumin 3.3 GM/DL (3.4-5.0) CA 19-9 Antigen 308.4 U/ML (0.0-35.0) Imaging Last Impressions Chest CT 06/06/17 0000 Signed Impressions: Service Date/Time: Tuesday, June 06, 2017 15:37 - CONCLUSION: 1. Soft tissue density within the retroesophageal space at the level of the aortic arch measuring 2.2 x 2.2 x 3.7 cm consistent with probable lymphadenopathy. PET/CT scan may be helpful for further evaluation of this finding if clinically indicated. 2. Moderate emphysematous changes bilaterally. 3. No pulmonary nodule or mass. 4. Degenerative changes throughout the thoracic spine. Paulino Banerjee MD Gall Bladder Ultrasound 06/05/17 0000 Signed Impressions: Service Date/Time: Monday, June 05, 2017 17:51 - CONCLUSION: 1. Low attenuation lesion along the pancreatic head measured 3.5 cm concerning for underlying mass. There is dilatation of the main pancreatic duct. 2. No evidence for cholelithiasis. Vidal Richards MD PE at Discharge GENERAL: This is a well-nourished, well-developed patient, in no apparent distress. CARDIOVASCULAR: Regular rate and regular rhythm without murmurs, gallops, or rubs. RESPIRATORY: Clear to auscultation. Breath sounds equal bilaterally. No wheezes , rales, or rhonchi. GASTROINTESTINAL: Abdomen soft, mild epigastric tenderness, nondistended. Normal, active bowel sounds MUSCULOSKELETAL: Extremities without clubbing, cyanosis, or edema. NEURO: Alert & Oriented x4 to person, place, time, situation. Moves all ext x4 Hospital Course patient was admitted with pancreatic mass. was evaluated by GI and Oncology. he needs EUS which has been arranged by GI as outpatient. he will have a follow-up with GI and Oncology as outpatient. Pt Condition on Discharge: Fair Discharge Disposition: Discharge Home Discharge Time: <= 30 minutes Discharge Instructions DIET: Follow Instructions for: Heart Healthy Diet Activities you can perform: Regular-No Restrictions Follow up Referrals: Gastroenterology Oncology PCP Follow-up New Medications: Hydrocodone-Acetaminophen (Hunter) 10-325 Mg Tab 1 TAB PO Q6H PRN for PAIN, #14 TAB 0 Refills Multivitamin with Folic Acid (Thera Tablet) 400 Mcg Tablet 1 TAB PO DAILY for vitamin for 30 Days, #30 TAB 0 Refills Thiamine HCl (Gnp Vitamin B-1) 100 Mg Tab 100 MG PO DAILY for vitamin for 30 Days, #30 TAB 0 Refills Continued Medications: Alprazolam (Xanax) 2 Mg Tab 2 MG PO BID PRN for ANXIETY, TAB 0 Refills Levothyroxine (Levothyroxine) 50 Mcg Tab 50 MCG PO DAILY for Thyroid, #30 TAB 0 Refills Lisinopril (Lisinopril) 5 Mg Tab 5 MG PO DAILY for Blood Pressure Management, #30 TAB 0 Refills Methadone (Methadone) 10 Mg Tab 20 MG PO DAILY, TAB 0 Refills Ranitidine (Ranitidine) 150 Mg Tab 150 MG PO BID for Heartburn Management, #60 TAB 0 Refills Discontinued Medications: Hydrocodone-Acetaminophen (Hydrocodone-Acetaminophen) 5-325 mg Tab 1 TAB PO Q4H PRN for PAIN, TAB 0 Refills Pepe Underwood MD Jun 07, 2017 11:42
--- NOTE | 2017-06-07 12:27 | HHI.GIFU ---
Subjective Remarks Pt resting in bed in NAD. His pain is improved, feels methadone works well for him. No nausea. EAting some. Objective Vitals I&O Vital Signs Date Time Temp Pulse Resp B/P (MAP) Pulse Ox O2 Delivery O2 Flow Rate FiO2 06/07/17 09:56 96.3 68 15 90 06/07/17 03:42 97.6 63 18 120/58 (78) 98 06/07/17 01:15 97.6 60 18 110/69 (83) 96 06/06/17 20:56 98.2 57 18 138/71 (93) 97 06/06/17 16:41 97.8 60 18 132/74 (93) 98 Laboratory Laboratory Tests Test 06/07/17 07:08 CA 19-9 Antigen 308.4 Imaging Last Impressions Chest CT 06/06/17 0000 Signed Impressions: Service Date/Time: Tuesday, June 06, 2017 15:37 - CONCLUSION: 1. Soft tissue density within the retroesophageal space at the level of the aortic arch measuring 2.2 x 2.2 x 3.7 cm consistent with probable lymphadenopathy. PET/CT scan may be helpful for further evaluation of this finding if clinically indicated. 2. Moderate emphysematous changes bilaterally. 3. No pulmonary nodule or mass. 4. Degenerative changes throughout the thoracic spine. Paulino Banerjee MD Gall Bladder Ultrasound 06/05/17 0000 Signed Impressions: Service Date/Time: Monday, June 05, 2017 17:51 - CONCLUSION: 1. Low attenuation lesion along the pancreatic head measured 3.5 cm concerning for underlying mass. There is dilatation of the main pancreatic duct. 2. No evidence for cholelithiasis. Vidal Richards MD Physical Exam HEENT: PERRL; normocephalic; atraumatic; no jaundice. CHEST: CTA CARDIAC: RRR ABDOMEN: Soft, nondistended, nontender; no hepatosplenomegaly; bowel sounds are present in all four quadrants. EXTREMITIES: No clubbing, cyanosis, or edema. SKIN: Normal; no rash; no jaundice. EXPRESSIVE THERAPIST: No focal deficits; alert and oriented times three. Assessment and Plan Plan ASSESSMENT - abd pain, weight loss - 3 months worsening abd pain, loss 100lbs in last year. CT abd with contrast 06/03/17 [facility] showed enlarged pancreatic head with associated ductal dilatation suspicious for malignancy, prominent lymph nodes US 06/05/17 showed pancreatic head lesion. elevated lipase. poss neuroendocrine tumor. oncology following. ca 19-[address] chest noted. pain seems well managed at this time, he is eating. nausea improved. scheduled appt through [facility] office, pt or his need to call and confirm [phone] PLAN - EUS Sunday @ 1530 [facility] with Dr Coronado - [place] - monitor labs - supportive care - ok to d/c from GI standpoint Pt discussed with Dr Alston and this note is written on his behalf Melinda Russ Jun 07, 2017 12:27
[2017-06-07 13:02] VITALS: BP 83/51; PULSE 56; RESP 16; TEMP 95.2; O2SAT 95
[2017-06-07 13:09] VITALS: BP 108/68
[2017-06-07] MEDS ORDERED: POVIDONE IODINE 5% (ANTISEPSIS KIT) 4 APPLICATIONS EACH NARE PRN (23:45)
[2017-06-07] MEDS ORDERED: SODIUM CHLORID 0.9% 500 ML IV PRN (23:45)
[2017-06-07] MEDS ORDERED: LACTATED RINGER'S 1000 ML IV PRN (23:45)
[2017-06-07] MEDS ORDERED: CHLORHEXIDINE GLUCONATE 2 % 1 PACK (2 CLOTHS) TOPICAL PRN (23:45)
--- NOTE | 2017-06-08 23:25 | EKG ---
Date Performed: 06/07/2017 Time Performed: 01:23:34 PTAGE: 61 years EKG: SINUS BRADYCARDIA POSSIBLE LEFT ATRIAL ENLARGEMENT BORDERLINE ECG PREVIOUS TRACING : 08/24/2010 13.44 DOCTOR: Sasha Kraus Interpretating Date/Time 06/08/2017 23:24:10
== END 2017-06-07 15:38 | disposition home or self-care (01) ==
LOC: NEPE 16:00 → NEDA 19:30 → NEPGCP 20:50
PROVIDERS: ADMIT Internal Medicine; ATTEND Internal Medicine
DX: K86.9 Disease of pancreas, unspecified (principal); F10.10 Alcohol abuse, uncomplicated; F17.210 Nicotine dependence, cigarettes, uncomplicated; G89.29 Other chronic pain; Z79.891 Long term (current) use of opiate analgesic; I10 Essential (primary) hypertension; K21.9 Gastro-esophageal reflux disease without esophagitis; J44.9 Chronic obstructive pulmonary disease, unspecified; Z79.899 Other long term (current) drug therapy; F41.9 Anxiety disorder, unspecified; E03.9 Hypothyroidism, unspecified; R63.4 Abnormal weight loss; M54.9 Dorsalgia, unspecified; R94.31 Abnormal electrocardiogram [ECG] [EKG]; C25.9 Malignant neoplasm of pancreas, unspecified
CPT/HCPCS: 71260; 76705; 80053; 83690; 85025; 86301; 93005; 96372; 96374; 96376; 99285; G0378; J1644; J2270; J2405; Q9967

== ENCOUNTER 2017-07-23 16:18 | Emergency (ER) | payer OTHER ==
[~2017-07-23 16:18] MED LIST changes: -AMOX500T PO; -ASPI325T PO; +HYDR-3366 PO; -HYDR-3535 PO; -LEVO.05 PO; +LEVO50TA4 PO; +LISI-519 PO; +METH10TA PO; +RANI150T PO; +THERTAB15 PO; +THIA100 PO; -blood pressure PO
[2017-07-23 16:19] VITALS: BP 168/94; PULSE 69; RESP 28; TEMP 98.9; O2SAT 96
[2017-07-23] MEDS ORDERED: MORP1TAB24 PO (16:42)
[2017-07-23] MEDS ORDERED: SODIUM CHLOR 0.9% 1000 ML INJ 1,000 ML IV SCH (17:32)
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
[2017-07-23] MEDS ORDERED: FAMOTIDINE 20 MG/2 ML VIAL IV PUSH ONE (17:45)
[2017-07-23] MEDS ORDERED: HYDROmorphone HCL PF 1 MG/ML VIAL IVS ONE (17:45)
[2017-07-23] MEDS ORDERED: ONDANSETRON HCL 4 MG/2 ML VIAL IVP ONE (17:45)
[2017-07-23] MEDS ORDERED: SODIUM CHLORIDE 0.9% FLUSH 10 ML FLUSH IV FLUSH PRN (17:45)
[2017-07-23 17:51] LABS: AUTOMATED NEUTROPHIL # 6.1 TH/MM3 (1.8-7.7); BASOPHIL # 0.1 TH/MM3 (0-0.2); BASOPHIL % 0.9 % (0.0-2.0); EOSINOPHIL % 0.4 % (0.0-4.0); HEMOGLOBIN 13.8 GM/DL (13.0-17.0); LYMPH % 20.6 % (9.0-44.0); LYMPHOCYTE # 1.8 TH/MM3 (1.0-4.8); MEAN CELL VOLUME 81.8 FL (80.0-100.0); MEAN CORPUSCULAR HEMOGLOBIN 28.3 PG (27.0-34.0); MEAN CORPUSCULAR HGB CONC 34.6 % (32.0-36.0); MEAN PLATELET VOLUME 9.3 FL (7.0-11.0); MONOCYTE # 0.7 TH/MM3 (0-0.9); NEUT % 70.1 % (16.0-70.0); PLATELET COUNT 293 TH/MM3 (150-450); RED BLOOD COUNT 4.89 MIL/MM3 (4.50-5.90); RED CELL DISTRIBUTION WIDTH 13.8 % (11.6-17.2); WHITE BLOOD COUNT 8.7 TH/MM3 (4.0-11.0)
[2017-07-23] MEDS ORDERED: HYDROmorphone HCL PF 2 MG/ML VIAL IV ONE (18:00)
[2017-07-23 18:06] LABS: INTERNATIONAL NORMALIZED RATIO 1.1 RATIO; PROTHROMBIN TIME - PATIENT 10.8 SEC (9.8-11.6)
[2017-07-23 18:10] VITALS: BP 157/90; PULSE 62; RESP 18; O2SAT 97
[2017-07-23 18:18] LABS: ALKALINE PHOSPHATASE 105 U/L (45-117); TOTAL BILIRUBIN ADULT 0.2 MG/DL (0.2-1.0); TOTAL PROTEIN 7.2 GM/DL (6.4-8.2)
[2017-07-23 18:30] LABS: ALBUMIN 3.2 GM/DL (3.4-5.0); ALT (GPT) 35 U/L (12-78); AST (GOT) 25 U/L (15-37); BICARBONATE 29.8 MEQ/L (21.0-32.0); BLOOD UREA NITROGEN 7 MG/DL (7-18); CALCIUM 8.7 MG/DL (8.5-10.1); CHLORIDE 103 MEQ/L (98-107); CREATININE 0.74 MG/DL (0.60-1.30); GLOMERULAR FILTRATION RATE 108 ML/MIN (>89); GLUCOSE,RANDOM 150 MG/DL (74-106); SODIUM (NA) 139 MEQ/L (136-145)
--- NOTE | 2017-07-23 19:14 | RADRPT ---
EXAM DATE/TIME: 07/23/2017 18:39 [facility] COMPARISON: No previous studies available for comparison. INDICATIONS : Upper abdominal pain. MEDICAL HISTORY : Hypertension. Chronic obstructive pulmonary disease. SURGICAL HISTORY : None. ENCOUNTER: Initial ACUITY: 1 day PAIN SCORE: 6/10 LOCATION: Bilateral upper quadrant abdomen FINDINGS: Supine and upright views of the abdomen were performed. The abdominal bowel gas pattern is normal. No air fluid levels are seen. No abnormal masses, calcifications, or organomegaly is seen. The visu alized lower lungs are clear. No evidence of free intraperitoneal gas. The osseous structures are u nremarkable. CONCLUSION: Normal examination. Narciso Akbar MD on July 23, 2017 at 19:12 Board Certified Radiologist. This report was verified electronically.
[2017-07-23 19:19] VITALS: BP 159/82; PULSE 67; RESP 18; O2SAT 98
[2017-07-23 20:31] LABS: AMORPHOUS SEDIMENT, URINE RARE; BILIRUBIN, URINE NEG (NEG); BLOOD, URINE NEG (NEG); GLUCOSE,URINE NEG (NEG); KETONE, URINE NEG (NEG); MUCUS URINE FEW /lpf (OCC); NITRITE,URINE NEG (NEG); URINE COLOR YELLOW (YELLW/STRAW); URINE LEUKOCYTE ESTERASE NEG (NEG)
== END 2017-07-23 20:57 | disposition home or self-care (01) ==
LOC: NEPD 16:18
DX: R10.10 Upper abdominal pain, unspecified (principal); K86.9 Disease of pancreas, unspecified; C25.9 Malignant neoplasm of pancreas, unspecified; I10 Essential (primary) hypertension; J44.9 Chronic obstructive pulmonary disease, unspecified; F17.210 Nicotine dependence, cigarettes, uncomplicated; Z85.828 Personal history of other malignant neoplasm of skin; Z79.899 Other long term (current) drug therapy
CPT/HCPCS: 74019; 80053; 81001; 83690; 85025; 85610; 85730; 96374; 96375; 99284; J1170; J2405; J7030

== ENCOUNTER 2017-09-17 07:46 | Day surgery (SDC) | payer MEDICAID ==
[~2017-09-17] VITALS: Ht 185.4 cm; Wt 54.1 kg
[~2017-09-17 07:46] MED LIST changes: +MORP1TAB24 PO; -RANI150T PO
[2017-09-17 08:10] VITALS: BP 168/97; PULSE 64; RESP 20; TEMP 97.7; O2SAT 98
[2017-09-17 08:39] LABS: AUTOMATED NEUTROPHIL # 6.1 TH/MM3 (1.8-7.7); BASOPHIL # 0.1 TH/MM3 (0-0.2); BASOPHIL % 0.8 % (0.0-2.0); EOSINOPHIL # 0.1 TH/MM3 (0-0.4); EOSINOPHIL % 1.2 % (0.0-4.0); HEMATOCRIT 40.5 % (39.0-51.0); HEMOGLOBIN 13.9 GM/DL (13.0-17.0); LYMPH % 14.6 % (9.0-44.0); LYMPHOCYTE # 1.2 TH/MM3 (1.0-4.8); MEAN CELL VOLUME 81.8 FL (80.0-100.0); MEAN CORPUSCULAR HGB CONC 34.3 % (32.0-36.0); MEAN PLATELET VOLUME 10.1 FL (7.0-11.0); MONO % 8.3 % (0.0-8.0); MONOCYTE # 0.7 TH/MM3 (0-0.9); NEUT % 75.1 % (16.0-70.0); PLATELET COUNT 262 TH/MM3 (150-450); RED BLOOD COUNT 4.95 MIL/MM3 (4.50-5.90); RED CELL DISTRIBUTION WIDTH 15.5 % (11.6-17.2); WHITE BLOOD COUNT 8.1 TH/MM3 (4.0-11.0)
[2017-09-17] MEDS ORDERED: CHLORHEXIDINE GLUCONATE 2 % 1 PACK (2 CLOTHS) TOPICAL SCH (08:45)
[2017-09-17] MEDS ORDERED: POVIDONE IODINE 5% (ANTISEPSIS KIT) 4 APPLICATIONS EACH NARE SCH (08:45)
[2017-09-17] MEDS ORDERED: ceFAZolin 2 GM PREMIX 50 ML - implanted port/tunneled catheter insertion IV SCH (08:45)
[2017-09-17] MEDS ORDERED: VANCOMYCIN 1000 MG/NS 250 ML - implanted port/tunneled catheter IV SCH ×2 (08:45)
[2017-09-17 08:48] LABS: INTERNATIONAL NORMALIZED RATIO 1.5 RATIO
[2017-09-17] MEDS ORDERED: SODIUM CHLORIDE 0.9% 1000 ML IV SCH (09:00)
[2017-09-17] MEDS ORDERED: MIDAZOLAM HCL 5 MG/5 ML VIAL ONE (10:01)
[2017-09-17] MEDS ORDERED: fentaNYL CITRATE 250 MCG/5 ML AMP ONE (10:01)
[2017-09-17] MEDS ORDERED: LIDOCAINE 1%/EPINEPHrine 1:100,000 SOLN 30 ML VIAL ONE (10:12)
[2017-09-17] MEDS ORDERED: HYDROmorphone HCL PF 2 MG/ML VIAL ONE (10:13)
--- NOTE | 2017-09-17 11:19 | PD.RAD ---
Post Procedure Progress Note Pre Procedure Diagnosis: (1) Pancreatic cancer Post Procedure Diagnosis: (1) Pancreatic cancer Procedure Date: Sep 17, 2017 Supervising Radiologist: Lele Vega Proceduralist/Assist: Rafa Silva, RT(R), Domenica Delacruz RT(R) Anesthesia: Local, Analgesia, Conscious Sedation Plan of Activity Patient to Unit: ROPU Patient Condition: Good See PACS Report for procedural detail/treatment Central Venous Access Device Procedure 1 Right Internal Jugular Infusaport Placement single lumen Latvian: 8 Lele Vega MD Sep 17, 2017 11:19
[2017-09-17 11:20] VITALS: BP 140/74; PULSE 82; RESP 16; TEMP 97.8
[2017-09-17] MEDS ORDERED: SODIUM CHLORIDE 0.9% FLUSH 10 ML FLUSH IVF PRN (11:30)
[2017-09-17 11:35] VITALS: BP_SYST 150; BP_DIAS 74; BP_DIAS 75; PULSE 78; PULSE 86; RESP 16; O2SAT 97
--- NOTE | 2017-09-17 11:49 | RADRPT ---
EXAM DATE/TIME: 09/17/2017 11:11 [facility] COMPARISON: No previous studies available for comparison. INDICATIONS : Patient presents with pancreatic cancer in need of port placement for treatment. MEDICAL HISTORY : Pancreatic ca Skin cancer C1, C2, C4, C5 Herniated discs Migraines HTN COPD SURGICAL HISTORY : Inguinal hernia Herniated disc ENCOUNTER: Initial ACUITY: 3 months PAIN SCORE: 8/10 LOCATION: Abdominal FLUORO TIME: 1.67 minutes IMAGE SERIES: 1 SEDATION TIME: 30 minutes ACCESS: Right internal jugular vein SEDATION: 1.) 3 mg midazolam (Versed) IV 2.) 200 mcg fentanyl (Sublimaze) IV 3.) 1mg hydromorphone (Dilaudid) IV Prophylactic antibiotics were administered with appropriate pre-procedure timing. Vancomycin within 2 hours of procedure, Ancef (or alternative) within 1 hour of procedure. DEVICE: 1. 8 [place] single lumen Bio Hunter Port PROCEDURE : 1. Continuous pulse oximetry and EKG monitoring. 2. Intravenous conscious sedation. 3. Ultrasound guidance for venous access. 4. Fluoroscopic guided implantable central venous port placement. The patient was placed supine. The neck was prepped in sterile fashion. Full sterile technique was u sed, including cap, mask, sterile gloves and gown, and a large sterile sheet. Hand hygiene and 2% ch lorhexidine Betadine was utilized per protocol for cutaneous antisepsis with appropriate dry time for site. Sterile gel and sterile probe cover were utilized for ultrasound guidance. The skin and sub cutaneous tissues were infiltrated with local anesthetic solution. Under direct ultrasound guidance, central venous access was accomplished in the targeted vessel. The ultrasound images depicting access guidance were stored and saved to PACS for permanent record. A s ubcutaneous pocket was created using blunt dissection. The port was introduced to the pocket. The c atheter tubing was fed through a subcutaneous tunnel to the venotomy site. The catheter tubing was c ut to a suitable length and then was introduced through a valved Peel-Away sheath and positioned with catheter tubing tip at the cavo-atrial junction level. The pocket incision was closed with subcutic ular Vicryl suture. Steri-Strips were applied. The port was flushed and locked with heparin solutio n per protocol. Sterile dressing was applied to the site. The patient tolerated the procedure well. Conscious sedation was performed with the prescribed dosages and duration as above in the presence of an independent trained radiology nurse to assist in the monitoring of the patient. EKG and oximetry remained stable throughout the procedure. The patient tolerated the procedure well and there were no complications. The patient was sent to post anesthesia recovery in stable condition. CONCLUSION: Uncomplicated ultrasound and fluoroscopic guided implanted central venous port catheter placement as described in detail above. An 8 [place] Power port was placed. Lele Vega MD on September 17, 2017 at 11:47 Board Certified Radiologist. This report was verified electronically.
[2017-09-17 11:50] VITALS: BP 154/84; PULSE 73; RESP 18; O2SAT 98
[2017-09-17 12:20] VITALS: BP 134/69; PULSE 71; RESP 18; O2SAT 98
[2017-09-17 12:50] VITALS: BP 131/59; PULSE 68; RESP 18; O2SAT 98
[2017-09-18] MEDS ORDERED: RANI150T PO (17:18)
[2017-09-18] MEDS ORDERED: ALPR1TAB3 PO (17:20)
== END 2017-09-17 13:50 | disposition home or self-care (01) ==
LOC: HROP 07:46 → HRIP 07:46 → HROP 13:50
PROVIDERS: ATTEND Internal Medicine
DX: C25.9 Malignant neoplasm of pancreas, unspecified (principal); J44.9 Chronic obstructive pulmonary disease, unspecified; G43.909 Migraine, unspecified, not intractable, without status migrainosus; M50.221 Other cervical disc displacement at C4-C5 level; Z01.818 Encounter for other preprocedural examination
CPT/HCPCS: 36561; 76937; 77001; 85025; 85610; 85730; 99152; 99153; C1769; C1788; C1887; J0690; J1170; J1642; J2250; J3010; J3370; J7030; J7050

== ENCOUNTER 2017-09-17 17:39 | Emergency (ER) | payer MEDICAID ==
[~2017-09-17] VITALS: Ht 185.4 cm; Wt 54.0 kg
[2017-09-17 17:41] VITALS: BP 181/98; PULSE 64; RESP 28; TEMP 98.3; O2SAT 100
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
[2017-09-18] MEDS ORDERED: RANI150T PO (17:18)
[2017-09-18] MEDS ORDERED: ALPR1TAB3 PO (17:20)
== END 2017-09-17 18:43 | disposition home or self-care (01) ==
LOC: NEPC 17:39
DX: R58 Hemorrhage, not elsewhere classified (principal); Z98.890 Other specified postprocedural states; I10 Essential (primary) hypertension; J44.9 Chronic obstructive pulmonary disease, unspecified; F17.210 Nicotine dependence, cigarettes, uncomplicated; Z85.07 Personal history of malignant neoplasm of pancreas; Z85.828 Personal history of other malignant neoplasm of skin; Z79.899 Other long term (current) drug therapy
CPT/HCPCS: 99281

== ENCOUNTER 2017-09-17 19:45 | Inpatient (IN) | payer MEDICAID ==
[2017-09-17 19:49] VITALS: BP 155/72; PULSE 72; RESP 20; TEMP 97; O2SAT 96
[2017-09-17] MEDS ORDERED: SILVER NITR/POTASSIUM NITRATE APPLICATORS TOPICAL ONE (21:45)
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
[2017-09-17] MEDS ORDERED: SODIUM CHLORIDE 0.9% FLUSH 10 ML FLUSH IV FLUSH PRN (22:15)
[2017-09-17] MEDS ORDERED: HYDROmorphone HCL PF 2 MG/ML VIAL IV PUSH ONE (22:30)
[2017-09-17 23:05] LABS: AUTOMATED NEUTROPHIL # 8.5 TH/MM3 (1.8-7.7); BASOPHIL % 0.4 % (0.0-2.0); EOSINOPHIL % 0.2 % (0.0-4.0); HEMOGLOBIN 12.4 GM/DL (13.0-17.0); LYMPH % 11.3 % (9.0-44.0); LYMPHOCYTE # 1.2 TH/MM3 (1.0-4.8); MEAN CELL VOLUME 81.4 FL (80.0-100.0); MEAN CORPUSCULAR HGB CONC 34.4 % (32.0-36.0); MEAN PLATELET VOLUME 10.2 FL (7.0-11.0); MONO % 7.4 % (0.0-8.0); MONOCYTE # 0.8 TH/MM3 (0-0.9); NEUT % 80.7 % (16.0-70.0); PLATELET COUNT 226 TH/MM3 (150-450); RED BLOOD COUNT 4.42 MIL/MM3 (4.50-5.90); RED CELL DISTRIBUTION WIDTH 15.1 % (11.6-17.2); WHITE BLOOD COUNT 10.6 TH/MM3 (4.0-11.0)
[2017-09-17 23:16] LABS: INTERNATIONAL NORMALIZED RATIO 1.5 RATIO; PROTHROMBIN TIME - PATIENT 15.1 SEC (9.8-11.6)
[2017-09-17 23:21] LABS: BICARBONATE 26.5 MEQ/L (21.0-32.0); CALCIUM 8.7 MG/DL (8.5-10.1); CREATININE 0.5 MG/DL (0.60-1.30)
[2017-09-18] VITALS (19 sets, daily range): BP systolic 139–203; BP diastolic 70–96; PULSE 61–117; RESP 16–24; TEMP 97.7–99.9; O2SAT 95–100
[2017-09-18] MEDS ORDERED: HYDROmorphone HCL PF 2 MG/ML VIAL IV PUSH ONE (00:15)
[2017-09-18] MEDS ORDERED: SODIUM CHLOR 0.9% 250 ML INJ 250 ML IV ONE (00:30)
[2017-09-18] MEDS ORDERED: ACETAMINOPHEN 325 MG TAB PO PRN (01:15)
[2017-09-18] MEDS ORDERED: BISACODYL 10 MG SUPP RECTAL PRN (01:15)
[2017-09-18] MEDS ORDERED: SODIUM CHLORIDE 0.9% FLUSH 10 ML FLUSH IV FLUSH PRN (01:15)
[2017-09-18] MEDS ORDERED: SENNOSIDES 8.6 MG TAB PO PRN (01:15)
[2017-09-18] MEDS ORDERED: NALOXONE HCL 0.4 MG/ML AMP IV PUSH PRN (01:15)
[2017-09-18] MEDS ORDERED: ONDANSETRON HCL 4 MG/2 ML VIAL IVP PRN (01:15)
[2017-09-18] MEDS ORDERED: MAGNESIUM HYDROXIDE SUSP 30 ML CUP PO PRN (01:15)
[2017-09-18] MEDS ORDERED: LACTULOSE SYRUP 20 GM/30 ML CUP PO PRN (01:15)
[2017-09-18] MEDS ORDERED: LORazepam 1 MG TAB PO PRN (01:30)
[2017-09-18] MEDS ORDERED: FLUMAZENIL 0.5 MG/5 ML VIAL IV PUSH PRN (01:30)
[2017-09-18] MEDS ORDERED: LORazepam 2 MG TAB PO PRN (01:30)
[2017-09-18] MEDS ORDERED: LORazepam 2 MG/ML VIAL IV PUSH PRN ×4 (01:30)
[2017-09-18] MEDS ORDERED: RESP: ALBUTEROL 2.5 MG/IPRATROPIUM 0.5 MG NEB (PRN) NEB (01:30)
--- NOTE | 2017-09-18 01:31 | HHI.HP ---
HPI Service [facility] Primary Care Physician Yasmani Lopez MD Admission Diagnosis Postprocedural bleeding, coagulopathy Diagnoses: Travel History International Travel<30 Days: No Contact w/Intl Traveler <30 Da: No Traveled to Known Affected Are: No History of Present Illness 61-year-old male with a past medical history significant for locally advanced pancreatic adenocarcinoma, anxiety, COPD, hypothyroidism and migraine presents to the emergency department for evaluation of bleeding. The patient had an Ujbbkv-l-Njnf placed by interventional radiology earlier yesterday morning who presented to the emergency department following the procedure for continued bleeding/oozing from the site. A pressure dressing was applied and the patient was discharged home. He returned to the emergency department with the pressure dressing saturated again. He denies touching the dressing. He denies any blood thinners or anticoagulant use. Of note, the patient does take 2-3 Goody' s packs daily and 3 days ago took approximately 5 packs. He denies any chest pain or shortness of breath. Endorses abdominal pain that is baseline. No nausea/vomiting/diarrhea. No lateralizing signs/symptoms. Positive fatigue/ weakness. Review of Systems Except as stated in HPI: all other systems reviewed are Neg Past Family Social History Past Medical History (Obtained from medical records) locally advanced pancreatic adenocarcinoma, anxiety, COPD, hypothyroidism and migraine Past Surgical History Melanoma removal in 2000 Reported Medications Reported Meds & Active Scripts Active [place] (Hydrocodone-Acetaminophen) 10-325 Mg Tab 1 Tab PO Q6H PRN Thera Tablet (Multivitamin with Folic Acid) 400 Mcg Tablet 1 Tab PO DAILY 30 Days Reported Morphine ER (Morphine Sulfate) 15 Mg Tab 15 Mg PO BID Methadone (Methadone HCl) 10 Mg Tab 20 Mg PO DAILY Levothyroxine (Levothyroxine Sodium) 50 Mcg Tab 50 Mcg PO DAILY Allergies: Coded Allergies: No Known Allergies (Verified Allergy, Unknown, 07/23/17) Family History Negative for CAD/DM Social History Smokes approximately half a pack per day. Drinks approximately 5 alcoholic beverages daily. Denies illicit drugs. Physical Exam Vital Signs Vital Signs Date Time Temp Pulse Resp B/P (MAP) Pulse Ox O2 Delivery O2 Flow Rate FiO2 09/18/17 00:51 63 20 192/89 (123) 97 Room Air 09/17/17 19:49 97.0 72 20 155/72 (99) 96 Physical Exam GENERAL: male lying in bed SKIN: No rashes, ecchymoses or lesions. Cool and dry. CHEST: Patient with right anterior chest wall Osvtfh-j-Sjat with pressure dressing in place. Dressing saturated with blood that continues to ooze. No underlying hematoma. HEAD: Atraumatic. Normocephalic. No temporal or scalp tenderness. EYES: Pupils equal round and reactive. Extraocular motions intact. No scleral icterus. No injection or drainage. ENT: Nose without bleeding, purulent drainage or septal hematoma. Throat without erythema, tonsillar hypertrophy or exudate. Uvula midline. Airway patent. NECK: Trachea midline. No JVD or lymphadenopathy. Supple, nontender, no meningeal signs. CARDIOVASCULAR: Regular rate and rhythm without murmurs, gallops, or rubs. RESPIRATORY: Clear to auscultation. Breath sounds equal bilaterally. No wheezes , rales, or rhonchi. GASTROINTESTINAL: Abdomen soft, non-tender, nondistended. No hepato-splenomegaly , or palpable masses. No guarding. MUSCULOSKELETAL: Extremities without clubbing, cyanosis, or edema. No joint tenderness, effusion, or edema noted. No calf tenderness. NEUROLOGICAL: Awake and alert. Cranial nerves II through XII intact. Motor and sensory grossly within normal limits. Normal speech. Laboratory Laboratory Tests Test 09/17/17 22:17 White Blood Count 10.6 Red Blood Count 4.42 Hemoglobin 12.4 Hematocrit 36.0 Mean Corpuscular Volume 81.4 Mean Corpuscular Hemoglobin 28.0 Mean Corpuscular Hemoglobin Concent 34.4 Red Cell Distribution Width 15.1 Platelet Count 226 Mean Platelet Volume 10.2 Neutrophils (%) (Auto) 80.7 Lymphocytes (%) (Auto) 11.3 Monocytes (%) (Auto) 7.4 Eosinophils (%) (Auto) 0.2 Basophils (%) (Auto) 0.4 Neutrophils # (Auto) 8.5 Lymphocytes # (Auto) 1.2 Monocytes # (Auto) 0.8 Eosinophils # (Auto) 0.0 Basophils # (Auto) 0.0 CBC Comment DIFF FINAL Differential Comment Prothrombin Time 15.1 Prothromb Time International Ratio 1.5 Activated Partial Thromboplast Time 28.9 Blood Urea Nitrogen 10 Creatinine 0.50 Random Glucose 142 Calcium Level 8.7 Sodium Level 139 Potassium Level 3.6 Chloride Level 104 Carbon Dioxide Level 26.5 Anion Gap 9 Estimat Glomerular Filtration Rate 170 Result Diagram: 09/17/17221609/17/172216 Caprini VTE Risk Assessment Caprini VTE Risk Assessment: Mod/High Risk (score >= 2) Caprini Risk Assessment Model Point Value = 1 Point Value = 2 Point Value = 3 Point Value = 5 Age 41-60 Minor surgery BMI > 25 kg/m2 Swollen legs Varicose veins or History of unexplained or recurrent spontaneous Oral contraceptives or hormone replacement Sepsis (< 1 month) Serious lung disease, including pneumonia (< 1 month) Abnormal pulmonary function Acute myocardial infarction Congestive heart failure (< 1 month) History of inflammatory bowel disease Medical patient at bed rest Age 61-74 Arthroscopic surgery Major open surgery (> 45 min) Laparoscopic surgery (> 45 min) Malignancy Confined to bed (> 72 hours) Immobilizing plaster cast Central venous access Age >= 75 History of VTE Family history of VTE Factor V Leiden Prothrombin [id number] Lupus anticoagulant Anticardiolipin antibodies Elevated serum homocysteine Heparin-induced thrombocytopenia Other congenital or acquired thrombophilia Stroke (< 1 month) Elective arthroplasty Hip, pelvis, or leg fracture Acute spinal cord injury (< 1 month) Prophylaxis Regimen Total Risk Factor Score Risk Level Prophylaxis Regimen 0-1 Low Early ambulation 2 Moderate Order ONE of the following: *Sequential Compression Device (SCD) *Heparin 5000 units SQ BID 3-4 Higher Order ONE of the following medications: *Heparin 5000 units SQ TID *Enoxaparin/Lovenox 40 mg SQ daily (WT < 150 kg, CrCl > 30 mL/min) *Enoxaparin/Lovenox 30 mg SQ daily (WT < 150 kg, CrCl > 10-29 mL/min) *Enoxaparin/Lovenox 30 mg SQ BID (WT < 150 kg, CrCl > 30 mL/min) AND/OR *Sequential Compression Device (SCD) 5 or more Highest Order ONE of the following medications: *Heparin 5000 units SQ TID (Preferred with Epidurals) *Enoxaparin/Lovenox 40 mg SQ daily (WT < 150 kg, CrCl > 30 mL/min) *Enoxaparin/Lovenox 30 mg SQ daily (WT < 150 kg, CrCl > 10-29 mL/min) *Enoxaparin/Lovenox 30 mg SQ BID (WT < 150 kg, CrCl > 30 mL/min) AND *Sequential Compression Device (SCD) Assessment and Plan Assessment and Plan Assessment/plan: 1. Postprocedural bleed Patient continues to ooze from Ixcufu-e-Ffnp insertion site despite pressure dressing Transfuse 1 unit FFP and 1 unit of platelets given patient's extensive aspirin use through Goody's powder Interventional radiology consulted, appreciate assistance Serial H&H Transfuse as needed Pressure dressing per Dr. Vega 2. Pancreatic adenocarcinoma Continue home pain medication regimen Medical oncology, Dr. Lopez consulted, appreciate recommendations 3. Hypothyroidism Continue home Synthroid 4. COPD Duo nebs as needed 5. Alcohol abuse Thiamine/folate/multivitamins [facility] protocol Monitor for signs of withdrawal FEN NPO NS at 50 cc/hr Electrolytes: Monitor and replete as needed Holding anticoagulation given active bleed Fatoumata Ashford MD Sep 18, 2017 01:31
[2017-09-18 02:13] LABS: ALBUMIN 2.7 GM/DL (3.4-5.0); DIRECT BILIRUBIN ADULT 6.8 MG/DL (0.0-0.2)
[2017-09-18 02:15] LABS: INDIRECT BILIRUBIN 1.7 MG/DL (0.0-0.8); TOTAL BILIRUBIN ADULT 8.5 MG/DL (0.2-1.0); TOTAL PROTEIN 6.5 GM/DL (6.4-8.2)
[2017-09-18 02:24] LABS: HEMATOCRIT 39.9 % (39.0-51.0); HEMOGLOBIN 13.8 GM/DL (13.0-17.0)
[2017-09-18] MEDS ORDERED: MORPHINE SULFATE 4 MG/ML INJ IV PUSH ONE (02:30)
--- NOTE | 2017-09-18 02:43 | PD ---
Physical Exam Date Seen by Provider: Sep 18, 2017 Time Seen by Provider: 02:40 Narrative Skin: Patient has a bleeding Fklwbl-w-Geay site in the right upper chest. Data Data Last Documented VS Vital Signs Date Time Temp Pulse Resp B/P (MAP) Pulse Ox O2 Delivery O2 Flow Rate FiO2 09/17/17 19:49 97.0 72 20 155/72 (99) 96 Orders Orders Silver Nitrate Applicators (Silver Nitra (09/17/17 21:45) Basic Metabolic Panel (Bmp) (09/17/17 22:08) Complete Blood Count With Diff (09/17/17 22:08) Prothrombin Time / Inr (Pt) (09/17/17 22:08) Act Partial Throm Time (Ptt) (09/17/17 22:08) Iv Access Insert/Monitor (09/17/17 22:08) Ecg Monitoring (09/17/17:08) Oximetry (09/17/17 22:08) Sodium Chloride 0.9% Flush (Ns Flush) (09/17/17 22:15) Hydromorphone Pf Inj (Dilaudid Pf Inj) (09/17/17 22:30) Hydromorphone Pf Inj (Dilaudid Pf Inj) (09/18/17 00:15) Hepatic Functional Panel (09/18/17 00:03) Fresh Frozen Plasma (Ffp) (09/18/17 00:26) Blood Product Administration (09/18/17 00:26) Sodium Chlor 0.9% 250 Ml Inj (Ns 250 Ml (09/18/17 00:30) Blood Product Administration (09/18/17 00:34) Invasive Rad Dept Consult (09/18/17 ) Admit Order (Ed Use Only) (09/18/17 00:49) Type And Screen (09/18/17 00:31) Platelet Pheresis (09/18/17 00:31) Labs Laboratory Tests Test 09/17/17 22:17 White Blood Count 10.6 TH/MM3 Red Blood Count 4.42 MIL/MM3 Hemoglobin 12.4 GM/DL Hematocrit 36.0 % Mean Corpuscular Volume 81.4 FL Mean Corpuscular Hemoglobin 28.0 PG Mean Corpuscular Hemoglobin Concent 34.4 % Red Cell Distribution Width 15.1 % Platelet Count 226 TH/MM3 Mean Platelet Volume 10.2 FL Neutrophils (%) (Auto) 80.7 % Lymphocytes (%) (Auto) 11.3 % Monocytes (%) (Auto) 7.4 % Eosinophils (%) (Auto) 0.2 % Basophils (%) (Auto) 0.4 % Neutrophils # (Auto) 8.5 TH/MM3 Lymphocytes # (Auto) 1.2 TH/MM3 Monocytes # (Auto) 0.8 TH/MM3 Eosinophils # (Auto) 0.0 TH/MM3 Basophils # (Auto) 0.0 TH/MM3 CBC Comment DIFF FINAL Differential Comment Prothrombin Time 15.1 SEC Prothromb Time International Ratio 1.5 RATIO Activated Partial Thromboplast Time 28.9 SEC Blood Urea Nitrogen 10 MG/DL Creatinine 0.50 MG/DL Random Glucose 142 MG/DL Calcium Level 8.7 MG/DL Sodium Level 139 MEQ/L Potassium Level 3.6 MEQ/L Chloride Level 104 MEQ/L Carbon Dioxide Level 26.5 MEQ/L Anion Gap 9 MEQ/L Estimat Glomerular Filtration Rate 170 ML/MIN Total Bilirubin 8.5 MG/DL Direct Bilirubin 6.8 MG/DL Indirect Bilirubin 1.7 MG/DL Aspartate Amino Transf (AST/SGOT) 132 U/L Alanine Aminotransferase (ALT/SGPT) 141 U/L Alkaline Phosphatase 620 U/L Total Protein 6.5 GM/DL Albumin 2.7 GM/DL [facility] Medical Record Reviewed: Yes Supervised Visit with MELINDA: Yes Interpretation(s) CBC & BMP Diagram 09/17/17 22:17 Calcium Level 8.7 Differential Diagnosis . Narrative Course Patient's bleeding has been resolved with sutures and direct pressure. Procedures Procedure Narrative Patient has a bleeding Zrjwnb-g-Zawh site. His pressure dressing has been removed. It has bled through. He has large clots. The patient has a area of Dermabond with underlying hematoma. This is removed. Patient has blood oozing out of the incision site. In my impression I suspect he has a small arterial bleeder just under the skin. I been able to tamponade it with direct pressure. The skin is prepped with Hibiclens copiously. Irrigated with saline. I have injected 1% lidocaine locally with near complete resolution of his bleeding. I have placed 3 simple interrupted sutures along the incision line. He has had hemostasis. A pressure dressing is applied using Elastoplast tape. Patient tolerated procedure well. No complications. Diagnosis Primary Impression: Bleeding Additional Impression: Coagulopathy Yuniel Lester Sep 18, 2017 02:43
[2017-09-18] MEDS: SODIUM CHLOR 0.9% 1000 ML INJ 1,000 ML IV SCH ×2 (03:55→21:26)
[2017-09-18] MEDS: HYDROmorphone HCL PF 2 MG/ML VIAL IV PUSH PRN (06:44)
[2017-09-18] MEDS: LEVOTHYROXINE SODIUM 50 MCG TAB PO SCH (06:51)
[2017-09-18 07:00] LABS: HEMATOCRIT 32.6 % (39.0-51.0); HEMOGLOBIN 11.3 GM/DL (13.0-17.0)
[2017-09-18] MEDS: SODIUM CHLORIDE 0.9% FLUSH 10 ML FLUSH IV FLUSH SCH ×2 (09:00→21:26)
[2017-09-18] MEDS ORDERED: MORPHINE SULFATE 8 MG/ML INJ ONE (09:14)
[2017-09-18] MEDS ORDERED: THROMBIN (TOPICAL) 5,000 UNIT VIAL ONE (09:37)
[2017-09-18 10:15] LABS: HEMATOCRIT 39.7 % (39.0-51.0); HEMOGLOBIN 13.4 GM/DL (13.0-17.0)
[2017-09-18] MEDS ORDERED: CEPHALEXIN MONOHYDRATE 500 MG CAP PO ONE (11:00)
--- NOTE | 2017-09-18 13:11 | HHI.PR ---
Subjective Remarks Follow up for port site hematoma/bleeding. The patient is seen s/p IR evaluation and intervention. He reports the bleeding as stopped. Dressing without any bloody drainage. He reports continued chronic abdominal pain and some pain at the port site. He is requesting his methadone. He is otherwise tolerating oral intake. Had breakfast this morning. Denies nausea/vomiting. Denies lightheadedness/dizziness. He has no other medical complaints at this time. Objective Vitals Vital Signs Date Time Temp Pulse Resp B/P (MAP) Pulse Ox O2 Delivery O2 Flow Rate FiO2 09/18/17 12:00 97.7 105 18 139/81 (100) 96 09/18/17 10:35 98.2 66 18 159/90 (113) 95 09/18/17 08:00 66 16 152/70 (97) 97 09/18/17 06:29 66 18 173/92 (119) 100 Room Air 09/18/17 04:24 66 16 148/71 (96) 96 Room Air 09/18/17 03:47 98.0 73 16 162/90 97 09/18/17 03:33 97.9 68 16 156/86 97 09/18/17 03:18 99.7 70 16 144/88 97 09/18/17 02:45 98.6 68 18 187/90 99 09/18/17 02:18 98.5 64 24 203/96 100 09/18/17 02:03 98.5 61 20 202/96 99 09/18/17 00:51 63 20 192/89 (123) 97 Room Air 09/17/17 19:49 97.0 72 20 155/72 (99) 96 I/O 09/17/17 09/17/17 09/17/17 09/18/17 09/18/17 09/18/17 07:00 15:00 23:00 07:00 15:00 23:00 Intake Total 560 ml Balance 560 ml Intake FFP 343 ml Platelets 197 ml Blood Product IV Normal Saline Flush 20 ml Result Diagram: 09/18/17 0942 09/17/17 2217 Objective Remarks GENERAL: Thin middle aged male patient in NAD. SKIN: Warm and dry. Right upper chest at Gnhyli-i-okpj site with dressing in place, CDI, tender to touch. HEENT: Normocephalic. Atraumatic.Pupils equal and round. Mucous membranes pink and moist. CARDIOVASCULAR: Regular rate and rhythm. No murmur appreciated. RESPIRATORY: No accessory muscle use. Clear to auscultation. Breath sounds equal bilaterally. GASTROINTESTINAL: Abdomen soft, non-tender, nondistended. Normoactive bowel sounds x4. MUSCULOSKELETAL: No obvious deformities. Extremities without clubbing, cyanosis , or edema. NEUROLOGICAL: Awake and alert. No obvious cranial nerve deficits. Motor grossly within normal limits. Normal speech. PSYCHIATRIC: Appropriate mood and affect; insight and judgment normal. Medications and IVs Current Medications Medications (Trade) Dose Ordered Sig/Nikia Route Start Time Stop Time Status Last Admin Sodium Chloride 250 ml @ 15 mls/hr ONCE ONCE IV 09/18/17 00:30 09/18/17 17:09 (Dilaudid Pf Inj) 1 mg Q4H PRN IV PUSH 09/18/17 01:15 09/18/17 06:44 Sodium Chloride 1,000 ml @ 50 mls/hr Q20H IV 09/18/17 01:15 09/18/17 03:55 (NS Flush) 2 ml UNSCH PRN IV FLUSH 09/18/17 01:15 (NS Flush) 2 ml BID IV FLUSH 09/18/17 09:00 (Tylenol) 650 mg Q4H PRN PO 09/18/17 01:15 (Zofran Inj) 4 mg Q6H PRN IVP 09/18/17 01:15 (Narcan Inj) 0.4 mg UNSCH PRN IV PUSH 09/18/17 01:15 (Alysha-Colace) 1 tab BID PO 09/18/17 09:00 (Milk Of Magnesia Liq) 30 ml Q12H PRN PO 09/18/17 01:15 (Senokot) 17.2 mg Q12H PRN PO 09/18/17 01:15 (Dulcolax Supp) 10 mg DAILY PRN RECTAL 09/18/17 01:15 (Lactulose Liq) 30 ml DAILY PRN PO 09/18/17 01:15 ([place] 10-325 Mg) 1 tab Q6H PRN PO 09/18/17 01:30 (Synthroid) 50 mcg DAILY@0700 PO 09/18/17 07:00 09/18/17 06:51 (Dolophine) 20 mg DAILY PO 09/18/17 09:00 (Oramorph Sr) 15 mg BID PO 09/18/17 09:00 (Folate) 1 mg DAILY PO 09/18/17 09:00 09/23/17 08:59 (Vitamin B1) 100 mg DAILY PO 09/18/17 09:00 (Theragran M Tab) 1 tab DAILY PO 09/18/17 09:00 09/23/17 08:59 (Romazicon Inj) 0.2 mg Q1M PRN IV PUSH 09/18/17 01:30 (Ativan) 1 mg Q4H PRN PO 09/18/17 01:30 (Ativan Inj) 1 mg Q4H PRN IV PUSH 09/18/17 01:30 (Ativan) 2 mg Q2H PRN PO 09/18/17 01:30 (Ativan Inj) 2 mg Q2H PRN IV PUSH 09/18/17 01:30 (Ativan Inj) 2 mg Q1H PRN IV PUSH 09/18/17 01:30 (Ativan Inj) 2 mg Q15M PRN IV PUSH 09/18/17 01:30 (Duoneb Neb) 1 ampule Q4HR NEB PRN NEB 09/18/17 01:30 A/P Assessment and Plan 61-year-old male with a past medical history significant for locally advanced pancreatic adenocarcinoma, anxiety, COPD, hypothyroidism and migraine presents to the emergency department for evaluation of bleeding. The patient had an Vdulum-q-Vlzb placed by interventional radiology on 09/17/17. Postprocedural bleed at Zpgzjy-Q-Yfhj site: Patient continues to ooze from Wkfzsx-e-Tslj insertion site despite pressure dressing. -S/p 1 unit FFP and 1 unit of platelets given patient's extensive aspirin use through Goody's powder -Interventional radiology consulted, appreciate assistance, s/p eval today -Serial H&H, currently stable, Hgb 13.9 --> 12.4 --> 13.8 --> 11.3 --> 13.4 -can likely d/c if ok with IR and oncology Pancreatic adenocarcinoma -Continue home pain medication regimen -Medical oncology, Dr. Lopez consulted, appreciate recommendations -Patient rescheduled to start chemotherapy on 09/29 Hypothyroidism: chronic -Continue home Synthroid COPD: chronic, does not appear to be in acute exacerbation -Duo nebs as needed Alcohol abuse -Thiamine/folate/multivitamins -CIWA protocol -Monitor for signs of withdrawal DVT Prophylaxis: holding chemoprophylaxis with bleeding as above Discharge Planning Discharge if cleared by IR and oncology. Domenica Hamm PA-C Sep 18, 2017 1:11 pm
[2017-09-18] MEDS: DOCUSATE SODIUM 50 MG/SENNA 8.6 MG TAB PO SCH ×2 (13:13→21:24)
[2017-09-18] MEDS: MULTIVITAMINS/MINERALS THERAPEUTIC TAB PO SCH (13:13)
[2017-09-18] MEDS: MORPHINE SULFATE 15 MG CONTROLLED RELEASE TAB PO SCH ×2 (13:13→21:25)
[2017-09-18] MEDS: THIAMINE HCL 100 MG TAB PO SCH (13:13)
[2017-09-18] MEDS: FOLIC ACID 1 MG TAB PO SCH (13:13)
[2017-09-18] MEDS: METHADONE HCL 10 MG TAB PO SCH (13:14)
--- NOTE | 2017-09-18 13:32 | HHI.DCPOC ---
Discharge Care Plan Diagnosis: (1) Bleeding Goals to Promote Your Health * To prevent worsening of your condition and complications * To maintain your health at the optimal level Directions to Meet Your Goals Take your medications as prescribed Follow your dietary instruction Follow activity as directed Keep your appointments as scheduled Take your immunizations and boosters as scheduled If your symptoms worsen call your PCP, if no PCP go to Urgent Care Center or Emergency Room Smoking is Dangerous to Your Health. Avoid second hand smoke Call the 24-hour hour crisis hotline for domestic abuse at Domenica Hamm PA-C Sep 18, 2017 1:32 pm
[2017-09-18 14:14] LABS: HEMATOCRIT 32.6 % (39.0-51.0); HEMOGLOBIN 11.1 GM/DL (13.0-17.0)
--- NOTE | 2017-09-18 16:42 | MB ---
cc: Yasmani Lopez MD, Awais M MD DATE: 09/18/2017 REASON FOR CONSULTATION: The patient with a history of locally advanced pancreatic cancer, which is unresectable. He had a port placement yesterday but developed bleeding. HISTORY OF PRESENT ILLNESS: This is a 61-year-old male who has a history of tobacco abuse, alcohol abuse, history of COPD who was diagnosed with pancreatic adenocarcinoma after he presented with 3-month history of abdominal pain, anorexia and weight loss of greater than [address] scan of the abdomen and pelvis showed an enlarged pancreatic head mass associated with ductal dilatation and an ultrasound confirmed a pancreatic head lesion. He underwent an endoscopic ultrasound. Final biopsy results confirmed invasive adenocarcinoma. The patient was subsequently evaluated by Dr. Fam at [facility] for potential resectability of this lesion and this was found to be unresectable at that time. This is a 3.5 cm mass in the pancreatic head with pancreatic ductal dilatation. Neoadjuvant chemo and radiation was recommended. The patient has had numerous delays in his care due to noncompliance with followups. The plan was to give 3-4 cycles of Abraxane and Gemzar followed by possible chemoradiation to give him the best chance to have an R0 resection. The patient had port placement yesterday. Subsequently, he states that the blood started to ooze out of his port. He has not had any trauma. He says that he did not take off the dressing or try to manipulate the port site. The patient has been taking NSAIDs and Goody's powder. Additionally, he drinks excessive alcohol. His hemoglobin was 13.8 on presentation. He was given 1 unit of FFP and 1 unit onel reduced platelets. The dressing is in place and he has not had any further bleeding. REVIEW OF SYSTEMS: A comprehensive review of system was completed which is negative except as described in the HPI. PAST MEDICAL HISTORY: Locally advanced pancreatic adenocarcinoma, alcohol abuse, tobacco abuse, COPD, hypothyroidism, history of migraine. PAST SURGICAL HISTORY: Melanoma removal in 2000. FAMILY HISTORY: Reviewed and is noncontributory to this admission. SOCIAL HISTORY: He smokes half a pack per day. He has more a 40 pack year smoking history. He used to smoke almost 1-2 packs per day. He drinks 5-6 alcoholic beverages per day. He denies any illicit drugs. PHYSICAL EXAMINATION: VITAL SIGNS: Blood pressure is 152/70, pulse is in the 60s, temperature is 98.2, O2 saturations are 97% on room air. GENERAL: A disheveled male who appears older than his stated age. HEENT: Pupils are equal, round, reactive to light. EOMI. No thrush. Poor oral hygiene. NECK: Supple. No JVD. No bruits. No lymphadenopathy. CHEST: Clear to auscultation bilaterally. CARDIAC: S1, S2. Regular rate and rhythm. ABDOMEN: Soft, nontender, nondistended. Bowel sounds are present. EXTREMITIES: Without any edema, erythema or cyanosis. SKIN: Without any petechiae, lesions, or bruises. NEUROLOGIC: No focal deficits. PSYCHIATRIC: Mood and affect appropriate. Right chest port site has a dressing in place. It is dry. There is no blood. It is somewhat tender. LABORATORY DATA: WBC 10.6, hemoglobin 12.4. Repeat hemoglobin 11.1, MCV 81.4, platelet count 226. Serum chemistries: Sodium 139, potassium 3.6, chloride 104, CO2 of 26.5, BUN 10, creatinine 0.5, GFR is 170, total bilirubin 8.5, direct bilirubin 6.8, indirect 1.7, AST is 132, ALT is 141, alkaline phosphatase 620, total protein 6.5, albumin is 2.7. CA 19-9 is 308.4. ASSESSMENT AND PLAN: This is a 61-year-old male who has a locally advanced pancreatic adenocarcinoma who recently had port placement and subsequently had bleeding. 1. Bleeding from the port site in the setting of history of alcohol abuse and non-steroidal anti-inflammatory drug abuse. The patient received fresh frozen plasma and 1 unit of platelets with resolution of bleeding. We will continue to monitor him closely. He was advised to stop taking the non-steroidal anti-inflammatory drugs and he was also counseled against alcohol abuse. 2. Pancreatic adenocarcinoma, locally advanced. This patient will need systemic chemotherapy outpatient. He has been complaining of abdominal pain. I will obtain abdominal CT scan to assess his disease. There have been numerous delays in his care due to noncompliance with followups. 3. Mild anemia. Hemoglobin is 11.1, MCV is 81.4. Obtain anemia studies. 4. Transaminitis. AST 32, ALT is 141 and hyperbilirubinemia, likely secondary to underlying pancreatic cancer. CT scan of the abdomen and pelvis as stated above. Thank you for allowing me to participate in the care of this patient. I will continue to follow this patient along. MD NORBERTO Dugan/ , 03:58 PM , 04:42 PM
[2017-09-18] MEDS ORDERED: RANI150T PO (17:18)
[2017-09-18] MEDS ORDERED: ALPR1TAB3 PO (17:20)
--- NOTE | 2017-09-18 18:48 | RADRPT ---
EXAM DATE/TIME: 09/18/2017 18:24 [place] COMPARISON: [id number] PLCMT, POWERPORT, W US, RIGHT, September 17, 2017, 11:11. CT THORAX W CONTRAST, June 06, 2017, 15:37. INDICATIONS : Pancreatic adeno. ORAL CONTRAST: No oral contrast ingested. RADIATION DOSE: 7.99 CTDIvol (mGy) ; Patient motion MEDICAL HISTORY : Hypertension. Carcinoma, pancreas. SURGICAL HISTORY : None. ENCOUNTER: Initial ACUITY: 1 day PAIN SCALE: 4/10 LOCATION: Bilateral abdomen TECHNIQUE: Volumetric scanning of the abdomen was performed. Using automated exposure control and adjustment of the mA and/or kV according to patient size, radiation dose was kept as low as reasonably achievable to obtain optimal diagnostic quality images. DICOM format image data is available electronically for review and comparison. FINDINGS: LOWER LUNGS: The visualized lower lungs are clear. LIVER: Homogeneous density without lesion. There is dilation of the biliary tree. No calcified gallstones. Dilated gallbladder. SPLEEN: Normal size without lesion. PANCREAS: Prominence within the region of pancreatic head but lack of intravenous contrast limits evaluation. KIDNEYS: Normal in size and shape. There is no mass, stone, or hydronephrosis. ADRENAL GLANDS: Within normal limits. AORTA/RETROPERITONEAL: There is no aneurysm or lymphadenopathy. BOWEL/MESENTERY: The stomach and visualized small and large bowel demonstrate no abnormality. MUSCULOSKELETAL: Within normal limits for patient age. CONCLUSION: 1. Intrahepatic biliary ductal dilatation and dilated gallbladder. 2. Prominence of the pancreatic head but lack of intravenous contrast limits evaluation. 3. Small right anterior basilar pneumothorax. Vidal Richards MD on September 18, 2017 at 18:42 Board Certified Radiologist. This report was verified electronically.
--- NOTE | 2017-09-18 20:38 | RADRPT ---
EXAM DATE/TIME: 09/18/2017 20:24 [facility] COMPARISON: No previous studies available for comparison. INDICATIONS : Evaluate for pneumothorax. MEDICAL HISTORY : Hyperthyroidism. Chronic obstructive pulmonary disease. Carcinoma, thyroid. SURGICAL HISTORY : Port placement. ENCOUNTER: Initial ACUITY: 1 day PAIN SCORE: 0/10 LOCATION: Bilateral chest FINDINGS: A single view of the chest demonstrates small right apical pneumothorax measuring 17 mm pleural separ ation. No mediastinal shift. Right Mediport tip in right atrium. Osseous structures are intact. CONCLUSION: 1. Small right apical pneumothorax measuring 17 mm pleural separation. 2. No mediastinal shift. 3. Right-sided port. Vidal Richards MD on September 18, 2017 at 20:34 Board Certified Radiologist. This report was verified electronically.
[2017-09-18 22:47] LABS: HEMATOCRIT 30.5 % (39.0-51.0); HEMOGLOBIN 10.4 GM/DL (13.0-17.0)
[2017-09-19] VITALS (16 sets, daily range): BP systolic 138–157; BP diastolic 77–88; PULSE 58–75; RESP 16–20; TEMP 97.9–99.8; O2SAT 97–99
[2017-09-19] MEDS: ACETAMINOPHEN/HYDROcodone 325 MG/10 MG TAB PO PRN ×3 (00:30→14:01)
[2017-09-19] MEDS: LEVOTHYROXINE SODIUM 50 MCG TAB PO SCH (06:02)
[2017-09-19 06:50] LABS: AUTOMATED NEUTROPHIL # 4.4 TH/MM3 (1.8-7.7); BASOPHIL % 0.8 % (0.0-2.0); EOSINOPHIL # 0.1 TH/MM3 (0-0.4); EOSINOPHIL % 1.4 % (0.0-4.0); HEMATOCRIT 31.2 % (39.0-51.0); HEMOGLOBIN 10.6 GM/DL (13.0-17.0); LYMPH % 20.9 % (9.0-44.0); LYMPHOCYTE # 1.4 TH/MM3 (1.0-4.8); MEAN CORPUSCULAR HEMOGLOBIN 28.2 PG (27.0-34.0); MEAN CORPUSCULAR HGB CONC 33.9 % (32.0-36.0); MEAN PLATELET VOLUME 10.2 FL (7.0-11.0); MONO % 10.2 % (0.0-8.0); MONOCYTE # 0.7 TH/MM3 (0-0.9); NEUT % 66.7 % (16.0-70.0); PLATELET COUNT 208 TH/MM3 (150-450); RED BLOOD COUNT 3.76 MIL/MM3 (4.50-5.90); RED CELL DISTRIBUTION WIDTH 15.3 % (11.6-17.2); WHITE BLOOD COUNT 6.5 TH/MM3 (4.0-11.0)
[2017-09-19 07:25] LABS: ALKALINE PHOSPHATASE 509 U/L (45-117); ALT (GPT) 119 U/L (12-78); TOTAL BILIRUBIN ADULT 7.7 MG/DL (0.2-1.0)
[2017-09-19 07:44] LABS: ALBUMIN 2.6 GM/DL (3.4-5.0); AST (GOT) 122 U/L (15-37); BICARBONATE 26.7 MEQ/L (21.0-32.0); BLOOD UREA NITROGEN 9 MG/DL (7-18); CALCIUM 8.6 MG/DL (8.5-10.1); CHLORIDE 108 MEQ/L (98-107); CREATININE 0.59 MG/DL (0.60-1.30); GLOMERULAR FILTRATION RATE 141 ML/MIN (>89); GLUCOSE,RANDOM 108 MG/DL (74-106); SODIUM (NA) 142 MEQ/L (136-145)
[2017-09-19] MEDS: DOCUSATE SODIUM 50 MG/SENNA 8.6 MG TAB PO SCH ×2 (09:34→21:00)
[2017-09-19] MEDS: THIAMINE HCL 100 MG TAB PO SCH (09:34)
[2017-09-19] MEDS: FOLIC ACID 1 MG TAB PO SCH (09:35)
[2017-09-19] MEDS: MULTIVITAMINS/MINERALS THERAPEUTIC TAB PO SCH (09:35)
[2017-09-19] MEDS: METHADONE HCL 10 MG TAB PO SCH (09:35)
--- NOTE | 2017-09-19 10:02 | PD.ONC.PN ---
Subjective Subjective Remarks Tmax 99.8 overnight Pt reports he has abdominal pain that he states is due to the cancer Hoping to go home Looking forward to starting chemo States he has not drank any alcohol since New Year's [place] Objective Data Date Time Temp Pulse Resp B/P (MAP) Pulse Ox O2 Delivery O2 Flow Rate FiO2 09/19/17 08:48 98.0 70 20 157/88 (111) 98 09/19/17 06:03 67 09/19/17 05:04 65 09/19/17 04:01 70 09/19/17 04:00 99.1 67 16 155/84 (107) 97 09/19/17 03:01 64 09/19/17 02:02 75 09/19/17 01:00 68 09/19/17 00:23 99.8 60 16 153/87 (109) 99 09/19/17 00:01 66 09/18/17 23:03 69 09/18/17 22:03 69 09/18/17 21:01 67 09/18/17 20:30 99.9 66 16 155/84 (107) 97 09/18/17 20:01 70 09/18/17 19:44 70 09/18/17 16:40 98.0 117 18 145/82 (103) 99 09/18/17 12:00 97.7 105 18 139/81 (100) 96 09/18/17 10:35 98.2 66 18 159/90 (113) 95 09/19/17 09/19/17 09/19/17 07:00 15:00 23:00 Intake Total 120 ml Output Total 300 ml Balance -180 ml Result Diagram: 09/19/17 0536 09/19/17 0536 Laboratory Results Laboratory Tests Test 09/18/17 14:04 09/18/17 22:43 09/19/17 05:36 Hemoglobin 11.1 GM/DL 10.4 GM/DL 10.6 GM/DL Hematocrit 32.6 % 30.5 % 31.2 % White Blood Count 6.5 TH/MM3 Red Blood Count 3.76 MIL/MM3 Mean Corpuscular Volume 83.0 FL Mean Corpuscular Hemoglobin 28.2 PG Mean Corpuscular Hemoglobin Concent 33.9 % Red Cell Distribution Width 15.3 % Platelet Count 208 TH/MM3 Mean Platelet Volume 10.2 FL Neutrophils (%) (Auto) 66.7 % Lymphocytes (%) (Auto) 20.9 % Monocytes (%) (Auto) 10.2 % Eosinophils (%) (Auto) 1.4 % Basophils (%) (Auto) 0.8 % Neutrophils # (Auto) 4.4 TH/MM3 Lymphocytes # (Auto) 1.4 TH/MM3 Monocytes # (Auto) 0.7 TH/MM3 Eosinophils # (Auto) 0.1 TH/MM3 Basophils # (Auto) 0.0 TH/MM3 CBC Comment DIFF FINAL Differential Comment Blood Urea Nitrogen 9 MG/DL Creatinine 0.59 MG/DL Random Glucose 108 MG/DL Total Protein 6.0 GM/DL Albumin 2.6 GM/DL Calcium Level 8.6 MG/DL Alkaline Phosphatase 509 U/L Aspartate Amino Transf (AST/SGOT) 122 U/L Alanine Aminotransferase (ALT/SGPT) 119 U/L Total Bilirubin 7.7 MG/DL Sodium Level 142 MEQ/L Potassium Level 3.4 MEQ/L Chloride Level 108 MEQ/L Carbon Dioxide Level 26.7 MEQ/L Anion Gap 7 MEQ/L Estimat Glomerular Filtration Rate 141 ML/MIN Administered Medications Medications (Trade) Dose Ordered Sig/Nikia Route PRN Reason Start Time Stop Time Status Last Admin Dose Admin Hydromorphone HCl (Dilaudid Pf Inj) 1 mg Q4H PRN IV PUSH pain 6-10 09/18/17 01:15 09/18/17 06:44 Sodium Chloride 1,000 ml @ 50 mls/hr Q20H IV 09/18/17 01:15 09/18/17 21:26 Sodium Chloride (NS Flush) 2 ml BID IV FLUSH 09/18/17 09:00 09/18/17 21:26 Senna/Docusate Sodium (Alysha-Colace) 1 tab BID PO 09/18/17 09:00 09/19/17 09:34 Acetaminophen/ Hydrocodone Bitart ([place] 10-325 Mg) 1 tab Q6H PRN PO PAIN 09/18/17 01:30 09/19/17 09:35 Levothyroxine Sodium (Synthroid) 50 mcg DAILY@0700 PO 09/18/17 07:00 09/19/17 06:02 Methadone HCl (Dolophine) 20 mg DAILY PO 09/18/17 09:00 09/19/17 09:35 Morphine Sulfate (Oramorph Sr) 15 mg BID PO 09/18/17 09:00 09/18/17 21:25 Folic Acid (Folate) 1 mg DAILY PO 09/18/17 09:00 09/23/17 08:59 09/19/17 09:35 Thiamine HCl (Vitamin B1) 100 mg DAILY PO 09/18/17 09:00 09/19/17 09:34 Multivitamins/ Minerals Therapeutic (Theragran M Tab) 1 tab DAILY PO 09/18/17 09:00 09/23/17 08:59 09/19/17 09:35 Objective Remarks GENERAL: Disheveled older male resting in bed in no obvious distress SKIN: Warm and dry. Dressing to right upper chest dry and intact HEAD: Normocephalic. EYES No injection or drainage. NECK: Supple, trachea midline. CARDIOVASCULAR: Regular rate and rhythm without murmurs. RESPIRATORY: Breath sounds equal bilaterally. No accessory muscle use. GASTROINTESTINAL: Abdomen soft, non-tender, nondistended. EXTREMITIES: No cyanosis, or edema. MUSCULOSKELETAL: Adequate muscle tone. NEUROLOGICAL: No obvious focal deficit. Awake, alert, and oriented x3. Assessment/Plan Problem List: (1) Pancreatic cancer ICD Codes: C25.9 - Malignant neoplasm of pancreas, unspecified Plan: Hx.Workup: Locally advanced pancreatic cancer that is nonresectable. He presented with 3 month history of abdominal pain, anorexia and weight loss greater than 100 pounds. Unfortunately he has had numerous delays in care due to noncompliance with follow-ups. We are planning to begin neoadjuvant chemotherapy with Abraxane and Gemzar to begin on 09/28. (2) Bleeding ICD Codes: R58 - Hemorrhage, not elsewhere classified Status: Acute Plan: --No further bleeding from Wyifvv-z-Wslg Assessment 61-year-old male with pancreatic cancer admitted for oozing of Eyrwtb-d-Exlu Plan 1. If patient no longer having bleeding he is clear for discharge from oncology standpoint 2. He was counseled to stay away from Advil, Aleve and other NSAID type over- the-counter medications. 3. We also discussed the importance of continuing to abstain from alcohol. Angeline Patterson Sep 19, 2017 10:02
[2017-09-19] MEDS: CEPHALEXIN MONOHYDRATE 500 MG CAP PO SCH ×2 (12:42→18:17)
[2017-09-19] MEDS: MORPHINE SULFATE 15 MG CONTROLLED RELEASE TAB PO SCH ×2 (12:42→21:00)
[2017-09-19] MEDS: SODIUM CHLORIDE 0.9% FLUSH 10 ML FLUSH IV FLUSH SCH ×2 (12:50→23:58)
--- NOTE | 2017-09-19 15:07 | RADRPT ---
EXAM DATE/TIME: 09/19/2017 13:35 [facility] COMPARISON: [id number] PLCMT, POWERPORT, W US, RIGHT, September 17, 2017, 11:11. INVASIVE RADIOLOGY CONSULT, September 18, 2017, 0:00. CT ABDOMEN W/O CONTRAST, September 18, 2017, 18:24. CHEST SINGLE AP, September 18, 2017, 2 0:24. INDICATIONS : Evaluate for pneumothorax. MEDICAL HISTORY : Carcinoma, pancreas. Hypertension. Gastroesophageal reflux disease. Chronic obstructive pulmon luis disease. Migraines. Herniated discs. Alcohol abuse. SURGICAL HISTORY : Inguinal hernia repair. Skin cancer removal. Infusaport. ENCOUNTER: Subsequent ACUITY: 2 days PAIN SCORE: 0/10 LOCATION: Bilateral chest FINDINGS: There is a stable right IJ [id number]. Minimally enlarged right apical pneumothorax measuring appr oximately 2.6 cm. Cardiomediastinal contours are within normal limits. Limited exam is unchanged. CONCLUSION: 1. Mildly enlarged small right apical pneumothorax. Rohit Nguyen MD on September 19, 2017 at 14:56 Board Certified Radiologist. This report was verified electronically.
[2017-09-19] MEDS ORDERED: MORPHINE SULFATE 4 MG/ML INJ IV PUSH PRN (15:45)
--- NOTE | 2017-09-19 15:52 | HHI.PR ---
Subjective Remarks 61-year-old male admitted for bleeding of port site and small pneumothorax that occurred yesterday. He complains of right side chest discomfort with inspiration. Objective Vitals Vital Signs Date Time Temp Pulse Resp B/P (MAP) Pulse Ox O2 Delivery O2 Flow Rate FiO2 09/19/17 15:01 18 09/19/17 12:46 97.9 64 144/84 (104) 99 09/19/17 11:51 63 09/19/17 10:35 18 09/19/17 08:48 98.0 70 20 157/88 (111) 98 09/19/17 08:00 60 09/19/17 06:03 67 09/19/17 05:04 65 09/19/17 04:01 70 09/19/17 04:00 99.1 67 16 155/84 (107) 97 09/19/17 03:01 64 09/19/17 02:02 75 09/19/17 01:00 68 09/19/17 00:23 99.8 60 16 153/87 (109) 99 09/19/17 00:01 66 09/18/17 23:03 69 09/18/17 22:03 69 09/18/17 21:01 67 09/18/17 20:30 99.9 66 16 155/84 (107) 97 09/18/17 20:01 70 09/18/17 19:44 70 09/18/17 16:40 98.0 117 18 145/82 (103) 99 I/O 09/18/17 09/18/17 09/18/17 09/19/17 09/19/17 09/19/17 07:00 15:00 23:00 07:00 15:00 23:00 Intake Total 560 ml 1760 ml 120 ml Output Total 600 ml 300 ml Balance 560 ml 1160 ml -180 ml Intake Oral 760 ml 120 ml IV Total 1000 ml FFP 343 ml Platelets 197 ml Blood Product IV Normal Saline Flush 20 ml Output Urine Total 600 ml 300 ml Result Diagram: 09/19/17 0536 09/19/17 0536 Objective Remarks GENERAL: 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 EYES: scleral icterus. No injection or drainage. NECK: Supple, trachea midline. No JVD or lymphadenopathy. CARDIOVASCULAR: Regular rate and rhythm without murmurs, gallops, or rubs. RESPIRATORY: Breath sounds equal bilaterally. No accessory muscle use. GASTROINTESTINAL: Abdomen soft, non-tender, nondistended. EXTREMITIES: No cyanosis, or edema. NEUROLOGICAL: Awake, alert, and oriented x 3. Non-focal. A/P Problem List: (1) Pneumothorax ICD Code: J93.9 - Pneumothorax, unspecified (2) Pancreatic cancer ICD Code: C25.9 - Malignant neoplasm of pancreas, unspecified Assessment and Plan Pneumothorax Slight interval worsening on chest x-ray compared to yesterday Patient still complains of discomfort on the right side of his chest He is currently being taken down for chest tube placement Appreciate oncology following Postprocedural bleed Excessive bleeding during placement of port for treatment of pancreatic cancer Patient has a history of aspirin use and excessive use of Goody powder Required 1 unit of fresh frozen plasma Bleeding is currently resolved externally Pressure dressing in place per Dr. Vega Pancreatic adenocarcinoma Continue home pain medication regimen Patient lost 100 pounds in the span of one year He is currently jaundiced with scleral icterus. This has been present for the last 2 weeks Appreciate oncology consult Hypothyroidism Continue home Synthroid COPD Duo nebs as needed Alcohol abuse Thiamine/folate/multivitamins [facility] protocol, monitor for signs of withdrawal DVT prophylaxis SCDs Chuck Sharpe MD Sep 19, 2017 15:52
[2017-09-19] MEDS: SODIUM CHLOR 0.9% 1000 ML INJ 1,000 ML IV SCH (18:18)
[2017-09-20] VITALS (9 sets, daily range): BP systolic 125–161; BP diastolic 70–91; PULSE 60–71; RESP 18; TEMP 97.9–98.5; O2SAT 97–100
[2017-09-20] MEDS: CEPHALEXIN MONOHYDRATE 500 MG CAP PO SCH ×6 (00:06→22:11)
[2017-09-20] MEDS: HYDROmorphone HCL PF 2 MG/ML VIAL IV PUSH PRN ×4 (02:30→19:00)
[2017-09-20] MEDS: LEVOTHYROXINE SODIUM 50 MCG TAB PO SCH (05:23)
[2017-09-20] MEDS: MULTIVITAMINS/MINERALS THERAPEUTIC TAB PO SCH (09:25)
[2017-09-20] MEDS: THIAMINE HCL 100 MG TAB PO SCH (09:26)
[2017-09-20] MEDS: FOLIC ACID 1 MG TAB PO SCH (09:26)
[2017-09-20] MEDS: METHADONE HCL 10 MG TAB PO SCH (09:27)
[2017-09-20] MEDS: SODIUM CHLORIDE 0.9% FLUSH 10 ML FLUSH IV FLUSH SCH ×2 (09:27→22:11)
--- NOTE | 2017-09-20 09:41 | RADRPT ---
EXAM DATE/TIME: 09/18/2017 00:00 [facility] COMPARISON : No previous studies available for comparison. INDICATIONS : Bleeding from port site HISTORY OF PRESENT ILLNESS: 61 year-old post port placement one day earlier. Patient presented to the ER twice for postprocedural bleeding. I was first informed of bleeding around 1800 hrs. yesterday. The integrity of the port poc ket was maintained by history and there was a slow views from the incision site. During implantation, no bleeding was identified. Patient also experienced no bleeding immediate 2 hours post implantation observation period. Asked the ED to place a pressure dressing. If bleeding was contained, would chec k on patient in the am. Mr. Guzman was subsequently DC'd when returned approximately 6 hours later with continued bleeding. At that point, attempts to stop the using remained with silver nitrate, Derm abond adhesive an additional Prolene sutures. This morning, no additional bleeding is identified. PHYSICAL EXAMINATION: Dressing was dry. A series of 4 Prolene stitches were placed across the port incision site. After denny ropriate local anesthetic, these were removed as I was concerned that the indwelling sutures may incr ease the risk of infection. A focus of bleeding was identified in the midportion of the incision. No fluctuance in the port pocket itself or along the tract. Therefore, the focal area of bleeding was tr eated with 5000 units of thrombin and manual pressure. This seen to contain the regional bleeding. Th e incision was redressed with Steri-Strips. A pressure dressing was then applied. Patient will be obs erved in radiology outpatient unit for the next 2 hours to assess for ongoing bleeding ASSESSMENT: Delayed bleeding from the port incision site treated as above. PLAN: Observed in [facility] for the next 2 hours for ongoing bleeding. Will place the patient on a 7 day course of Keflex for infection prophylaxis TIME SPENT: 45 minutes. Lele Vega MD on September 20, 2017 at 9:25 Board Certified Radiologist. This report was verified electronically.
--- NOTE | 2017-09-20 11:20 | RADRPT ---
EXAM DATE/TIME: 09/20/2017 11:04 [facility] COMPARISON: CHEST PA & LAT, September 19, 2017, 13:35. INDICATIONS : Pneumothorax. MEDICAL HISTORY : Carcinoma, pancreas. Hypertension Gastroesophageal reflux disease. COPD SURGICAL HISTORY : skin cancer removal, infusaport ENCOUNTER: Initial ACUITY: 3 days PAIN SCORE: 0/10 LOCATION: Bilateral chest FINDINGS: PA and lateral views of the chest demonstrate the lungs to be symmetrically aerated without evidence of mass, infiltrate or effusion. Right apical pneumothorax measures 2.2 cm pleural separation. No med iastinal shift. Right-sided port again seen and unchanged The cardiomediastinal contours are unremark able. Osseous structures are intact. CONCLUSION: Unchanged right apical pneumothorax. Vidal Richards MD on September 20, 2017 at 11:17 Board Certified Radiologist. This report was verified electronically.
[2017-09-20] MEDS: MORPHINE SULFATE 15 MG CONTROLLED RELEASE TAB PO SCH ×2 (12:50→22:11)
[2017-09-20] MEDS: DOCUSATE SODIUM 50 MG/SENNA 8.6 MG TAB PO SCH ×2 (12:51→22:11)
[2017-09-20] MEDS: SODIUM CHLOR 0.9% 1000 ML INJ 1,000 ML IV SCH (13:15)
--- NOTE | 2017-09-20 14:20 | PD.ONC.PN ---
Subjective Subjective Remarks Afebrile overnight. Patient resting in bed. denies dyspnea. has some mild abdominal pain. Objective Data Date Time Temp Pulse Resp B/P (MAP) Pulse Ox O2 Delivery O2 Flow Rate FiO2 09/20/17 12:52 98.4 71 18 161/78 (105) 99 09/20/17 10:27 18 09/20/17 09:55 18 09/20/17 08:00 98.5 67 18 157/91 (113) 99 09/20/17 04:31 97.9 69 18 151/81 (104) 97 09/20/17 04:31 64 09/20/17 00:00 62 09/19/17 23:58 98.5 64 16 138/85 (102) 99 09/19/17 20:00 65 09/19/17 15:58 98.8 58 18 149/77 (101) 99 09/19/17 15:01 18 09/20/17 09/20/17 09/20/17 07:00 15:00 23:00 Intake Total 840 ml Output Total 600 ml Balance 240 ml Result Diagram: 09/19/17 0536 09/19/17 0536 Imaging Studies Last 24 hours Impressions Chest X-Ray 09/20/17 1100 Signed Impressions: Service Date/Time: September 11:04 - CONCLUSION: Unchanged right apical pneumothorax. Vidal Richards MD Administered Medications Medications (Trade) Dose Ordered Sig/Nikia Route PRN Reason Start Time Stop Time Status Last Admin Dose Admin Hydromorphone HCl (Dilaudid Pf Inj) 1 mg Q4H PRN IV PUSH pain 6-10 09/18/17 01:15 09/20/17 14:11 Sodium Chloride 1,000 ml @ 50 mls/hr Q20H IV 09/18/17 01:15 09/19/17 18:18 Sodium Chloride (NS Flush) 2 ml BID IV FLUSH 09/18/17 09:00 09/20/17 09:27 Senna/Docusate Sodium (Alysha-Colace) 1 tab BID PO 09/18/17 09:00 09/20/17 12:51 Acetaminophen/ Hydrocodone Bitart ([place] 10-325 Mg) 1 tab Q6H PRN PO PAIN 09/18/17 01:30 09/19/17 14:01 Levothyroxine Sodium (Synthroid) 50 mcg DAILY@0700 PO 09/18/17 07:00 09/20/17 05:23 Methadone HCl (Dolophine) 20 mg DAILY PO 09/18/17 09:00 09/20/17 09:27 Morphine Sulfate (Oramorph Sr) 15 mg BID PO 09/18/17 09:00 09/20/17 12:50 Folic Acid (Folate) 1 mg DAILY PO 09/18/17 09:00 09/23/17 08:59 09/20/17 09:26 Thiamine HCl (Vitamin B1) 100 mg DAILY PO 09/18/17 09:00 09/20/17 09:26 Multivitamins/ Minerals Therapeutic (Theragran M Tab) 1 tab DAILY PO 09/18/17 09:00 09/23/17 08:59 09/20/17 09:25 Cephalexin Monohydrate (Keflex) 500 mg Q6HR PO 09/19/17 12:00 09/25/17 11:59 09/20/17 12:52 Objective Remarks GENERAL: middle aged female, sitting up in bed in [place] [facility]. SKIN: Warm and dry. HEAD: Normocephalic. EYES: No injection or drainage. NECK: Supple, trachea midline. CARDIOVASCULAR: +S1/S2 RESPIRATORY: coarse breath sounds. GASTROINTESTINAL: Abdomen soft, mildly tender in epigastrium, nondistended. EXTREMITIES: No cyanosis NEUROLOGICAL: awake and alert. normal speech. moving extremities. Assessment/Plan Problem List: (1) Pancreatic cancer ICD Codes: C25.9 - Malignant neoplasm of pancreas, unspecified Plan: Hx.Workup: Locally advanced pancreatic cancer that is nonresectable. He presented with 3 month history of abdominal pain, anorexia and weight loss greater than 100 pounds. Unfortunately he has had numerous delays in care due to noncompliance with follow-ups. We are planning to begin neoadjuvant chemotherapy with Abraxane and Gemzar to begin on 09/28. (2) Bleeding ICD Codes: R58 - Hemorrhage, not elsewhere classified Status: Acute Plan: --No further bleeding from Yjbfce-m-Haji Assessment 61-year-old male with pancreatic cancer admitted for oozing of Gtxuwn-w-Yukc Plan 1. follow up in clinic once discharged 2. oncology clear for discharge 3. continue supportive care Attending Statement The exam, history, and the medical decision-making described in the above note were completed with the assistance of the mid-level provider. I reviewed and agree with the findings presented. I attest that I had a [id number] encounter with the patient on the same day, and personally performed and documented my assessment and findings in the medical record. small apical pneumothorax need to ensure stability chest xray in am pulmonary to see patient Donna Jamison Sep 20, 2017 14:20 Yasmani Lopez MD Sep 20, 2017 19:58
--- NOTE | 2017-09-20 17:42 | HHI.PR ---
Subjective Remarks Patient has no new complaints, he is resting comfortably in bed and had a few questions about pancreatic cancer. Objective Vitals Vital Signs Date Time Temp Pulse Resp B/P (MAP) Pulse Ox O2 Delivery O2 Flow Rate FiO2 09/20/17 12:52 98.4 71 18 161/78 (105) 99 09/20/17 10:27 18 09/20/17 09:55 18 09/20/17 08:00 98.5 67 18 157/91 (113) 99 09/20/17 04:31 97.9 69 18 151/81 (104) 97 09/20/17 04:31 64 09/20/17 00:00 62 09/19/17 23:58 98.5 64 16 138/85 (102) 99 09/19/17 20:00 65 I/O 09/19/17 09/19/17 09/19/17 09/20/17 09/20/17 09/20/17 07:00 15:00 23:00 07:00 15:00 23:00 Intake Total 120 ml 1200 ml 840 ml Output Total 300 ml 600 ml Balance -180 ml 1200 ml 240 ml Intake Oral 120 ml 1200 ml 240 ml IV Total 600 ml Output Urine Total 300 ml 600 ml # Voids 4 # Bowel Movements 1 Result Diagram: 09/19/17 0536 09/19/17 0536 Objective Remarks GENERAL: 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 EYES: scleral icterus. No injection or drainage. NECK: Supple, trachea midline. No JVD or lymphadenopathy. CARDIOVASCULAR: Regular rate and rhythm without murmurs, gallops, or rubs. RESPIRATORY: Breath sounds equal bilaterally. No accessory muscle use. GASTROINTESTINAL: Abdomen soft, non-tender, nondistended. EXTREMITIES: No cyanosis, or edema. NEUROLOGICAL: Awake, alert, and oriented x 3. Non-focal. A/P Problem List: (1) Pneumothorax ICD Code: J93.9 - Pneumothorax, unspecified (2) Pancreatic cancer ICD Code: C25.9 - Malignant neoplasm of pancreas, unspecified Assessment and Plan Pneumothorax Repeat chest x-ray this morning showed stability of his pneumothorax Patient still complains of mild discomfort on the right side of his chest Chest tube placement was canceled due to bleeding risk Appreciate oncology following Pulmonology consulted for treatment recommendations Postprocedural bleed Excessive bleeding during placement of port for treatment of pancreatic cancer Patient has a history of aspirin use and excessive use of Goody powder Required 1 unit of fresh frozen plasma Bleeding is currently resolved Pressure dressing in place per Dr. Vega Pancreatic adenocarcinoma Continue home pain medication regimen Patient lost 100 pounds in the span of one year He is currently jaundiced with scleral icterus. This has been present for the last 2 weeks Appreciate oncology consult Hypothyroidism Continue home Synthroid COPD Duo nebs as needed Alcohol abuse Thiamine/folate/multivitamins [facility] protocol, monitor for signs of withdrawal DVT prophylaxis SCDs Chuck Sharpe MD Sep 20, 2017 17:42
[2017-09-21] VITALS (12 sets, daily range): BP systolic 116–161; BP diastolic 57–88; PULSE 57–94; RESP 16–20; TEMP 97.4–98.7; O2SAT 98–100
[2017-09-21] MEDS: HYDROmorphone HCL PF 2 MG/ML VIAL IV PUSH PRN ×6 (00:05→22:17)
[2017-09-21] MEDS: CEPHALEXIN MONOHYDRATE 500 MG CAP PO SCH ×3 (04:57→18:12)
[2017-09-21] MEDS: LEVOTHYROXINE SODIUM 50 MCG TAB PO SCH (06:42)
--- NOTE | 2017-09-21 09:16 | MB ---
cc: Ghassan Swanson MD DATE: 09/20/2017 REQUESTED BY: Lalita Jamison REASON FOR CONSULTATION: Pneumothorax. HISTORY OF PRESENT ILLNESS: Mr. German is a pleasant 61-year-old male with history of COPD, nicotine use, alcohol use, with history of pancreatic cancer diagnosed in June of this year. He was being considered for surgery, was evaluated at [facility] and considered not a surgical candidate. The patient was being planned for chemo and radiation. He came over here for a port placement. He had a port placed and developed significant bleeding from the port site and also has a small right apical pneumothorax. His repeat chest x-ray today shows a mildly enlarged small right apical pneumothorax. The patient feels comfortable. Denies any shortness of breath, no wheezing, no chest pain. PAST MEDICAL HISTORY: Significant for history of recent diagnosis of CA of the pancreas, hypertension, hypothyroidism, COPD, history of melanoma surgery. MEDICATIONS: He is currently taking the morphine for pain, Keflex 500 mg every 6 hours, thiamine 100 mg a day, levothyroxine 50 mcg a day, [place] for pain. ALLERGIES: NO KNOWN DRUG ALLERGIES. SOCIAL HISTORY: He is for 20 years. 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 Long history of smoking up to 2 pack a day until last week. He used to drink very heavily. He quit in June. No drug use. FAMILY HISTORY: He is . He has 2 children, 1 , 1 was killed in a motorcycle accident. REVIEW OF SYSTEMS: He has lost more than 100 pounds over the last 1 year. No nausea, vomiting. No DVT, pulmonary embolus or no malignancy. PHYSICAL EXAMINATION: GENERAL: Cachectic, thin built male, in no acute distress. VITAL SIGNS: Blood pressure 161/78, heart rate 71, respirations 18, temperature 98.4. HEENT: Pupils are equal and reactive to light. He has jaundice. NECK: Supple. JVD not raised. CHEST: Hyperresonant chest. No rhonchi. CARDIOVASCULAR: S1, S2 normal. ABDOMEN: Soft, nondistended. Bowel sounds are present. EXTREMITIES: No edema. IMPRESSION: 1. Right apical pneumothorax, slightly increased, but the patient is tolerating it well. 2. Carcinoma of the pancreas. 3. Weight loss. 4. Chronic obstructive pulmonary disease. 5. Nicotine use. 6. H/O alcohol use. PLAN: I discussed with the patient and his , we will give him supplemental oxygen, aerosol treatment. Repeat chest x-ray in the morning. If his pneumothorax stays stable for at least 24 hours, then he can be monitored as outpatient. However, if the pneumothorax increases in size, he will be considered for chest catheter placement, though he is at high risk of bleeding. Further treatment will depend on the course in the hospital. Thank you Dr. Jamison for this consult. MD MK Mcgarry/ALISON , 04:48 PM , 05:09 PM RISHABH
[2017-09-21] MEDS: MORPHINE SULFATE 15 MG CONTROLLED RELEASE TAB PO SCH ×2 (09:35→20:38)
[2017-09-21] MEDS: METHADONE HCL 10 MG TAB PO SCH (09:35)
[2017-09-21] MEDS: MULTIVITAMINS/MINERALS THERAPEUTIC TAB PO SCH (09:35)
[2017-09-21] MEDS: THIAMINE HCL 100 MG TAB PO SCH (09:35)
[2017-09-21] MEDS: DOCUSATE SODIUM 50 MG/SENNA 8.6 MG TAB PO SCH ×2 (09:36→20:38)
[2017-09-21] MEDS: FOLIC ACID 1 MG TAB PO SCH (09:36)
[2017-09-21] MEDS: SODIUM CHLORIDE 0.9% FLUSH 10 ML FLUSH IV FLUSH SCH ×2 (09:36→20:38)
--- NOTE | 2017-09-21 17:56 | HHI.PR ---
Subjective Remarks 61 YOWM with ca pancreas,PTX Denies sob No CP no fever Objective Vital Signs Vital Signs Date Time Temp Pulse Resp B/P (MAP) Pulse Ox O2 Delivery O2 Flow Rate FiO2 09/21/17 17:09 97.8 94 18 145/78 (100) 98 09/21/17 16:00 97.5 60 18 150/78 (102) 100 09/21/17 14:01 97.9 66 18 139/75 (96) 99 09/21/17 13:24 57 09/21/17 12:00 97.8 57 16 149/75 (99) 100 09/21/17 10:35 18 09/21/17 10:35 18 09/21/17 10:05 18 09/21/17 08:00 58 09/21/17 08:00 98.5 58 16 116/57 (76) 100 09/21/17 08:00 97.9 62 18 155/79 (104) 98 09/21/17 08:00 98.7 91 18 150/88 (108) 99 09/21/17 04:52 97.5 62 18 144/75 (98) 98 09/21/17 04:00 64 09/21/17 00:03 97.4 63 17 134/77 (96) 98 09/21/17 00:00 60 09/20/17 22:21 99 Nasal Cannula 2.00 09/20/17 22:00 61 09/20/17 22:00 98.0 60 18 142/73 (96) 100 09/20/17 18:50 98.3 65 18 125/70 (88) 100 I/O 09/20/17 09/20/17 09/20/17 09/21/17 09/21/17 09/21/17 07:00 15:00 23:00 07:00 15:00 23:00 Intake Total 840 ml 1320 ml 480 ml Output Total 600 ml 900 ml Balance 240 ml 1320 ml -420 ml Intake Oral 240 ml 1320 ml 480 ml IV Total 600 ml Output Urine Total 600 ml 900 ml # Voids 5 # Bowel Movements 1 1 Result Diagram: 09/19/17 0536 09/19/17 0536 Objective Remarks GENERAL: Cachectic WM,NAD SKIN: Warm and dry. HEAD: Normocephalic. EYES:++ scleral icterus. No injection or drainage. NECK: Supple, trachea midline. No JVD or lymphadenopathy. CARDIOVASCULAR: Regular rate and rhythm without murmurs, gallops, or rubs. RESPIRATORY: Breath sounds equal bilaterally. No accessory muscle use. GASTROINTESTINAL: Abdomen soft, non-tender, nondistended. MUSCULOSKELETAL: No cyanosis, or edema. BACK: Nontender without obvious deformity. No CVA tenderness. A/P Assessment and Plan IMPRESSION: 1. Right apical pneumothorax, slightly increased, but the patient is tolerating it well. 2. Carcinoma of the pancreas. 3. Weight loss. 4. Chronic obstructive pulmonary disease. 5. Nicotine use. 6. H/O alcohol use. PLAN Supplement 02 IS Rpt CXR in AM MIKE Sharpe If PTX stable, can dc home in AM MIKE Pt advised to come to ER if any SOB or CP Ghassan Swanson MD Sep 21, 2017 17:56
[2017-09-21] MEDS: SODIUM CHLOR 0.9% 1000 ML INJ 1,000 ML IV SCH (18:15)
--- NOTE | 2017-09-21 20:01 | HHI.PR ---
Subjective Remarks 61-year-old male who is resting comfortably in bed. He has no new complaints. Objective Vitals Vital Signs Date Time Temp Pulse Resp B/P (MAP) Pulse Ox O2 Delivery O2 Flow Rate FiO2 09/21/17 17:09 97.8 94 18 145/78 (100) 98 09/21/17 16:00 97.5 60 18 150/78 (102) 100 09/21/17 16:00 63 09/21/17 14:01 97.9 66 18 139/75 (96) 99 09/21/17 13:24 57 09/21/17 12:00 97.8 57 16 149/75 (99) 100 09/21/17 10:35 18 09/21/17 10:35 18 09/21/17 10:05 18 09/21/17 08:00 58 09/21/17 08:00 98.5 58 16 116/57 (76) 100 09/21/17 08:00 97.9 62 18 155/79 (104) 98 09/21/17 08:00 98.7 91 18 150/88 (108) 99 09/21/17 04:52 97.5 62 18 144/75 (98) 98 09/21/17 04:00 64 09/21/17 00:03 97.4 63 17 134/77 (96) 98 09/21/17 00:00 60 09/20/17 22:21 99 Nasal Cannula 2.00 09/20/17 22:00 61 09/20/17 22:00 98.0 60 18 142/73 (96) 100 I/O 09/20/17 09/20/17 09/20/17 09/21/17 09/21/17 09/21/17 07:00 15:00 23:00 07:00 15:00 23:00 Intake Total 840 ml 1320 ml 480 ml 1200 ml Output Total 600 ml 900 ml 1100 ml Balance 240 ml 1320 ml -420 ml 100 ml Intake Oral 240 ml 1320 ml 480 ml 1200 ml IV Total 600 ml Output Urine Total 600 ml 900 ml 1100 ml # Voids 5 # Bowel Movements 1 1 2 Result Diagram: 09/19/17 0536 09/19/17 0536 Objective Remarks GENERAL: Thin appearing man, 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 EYES: scleral icterus. No injection or drainage. NECK: Supple, trachea midline. No JVD or lymphadenopathy. CARDIOVASCULAR: Regular rate and rhythm without murmurs, gallops, or rubs. RESPIRATORY: Breath sounds equal bilaterally. No accessory muscle use. GASTROINTESTINAL: Abdomen soft, non-tender, nondistended. EXTREMITIES: No cyanosis, or edema. NEUROLOGICAL: Awake, alert, and oriented x 3. Non-focal. A/P Problem List: (1) Pneumothorax ICD Code: J93.9 - Pneumothorax, unspecified (2) Pancreatic cancer ICD Code: C25.9 - Malignant neoplasm of pancreas, unspecified Assessment and Plan Pneumothorax Chest x-ray exams thus far shows stability of his pneumothorax Repeat chest x-ray ordered for today Patient states he has less discomfort on the right side of his chest today Chest tube placement was canceled due to bleeding risk Appreciate oncology following Appreciate pulmonology consult Postprocedural bleed Excessive bleeding during placement of port for treatment of pancreatic cancer Patient has a history of aspirin use and excessive use of Goody powder Required 1 unit of fresh frozen plasma Bleeding is currently resolved Pressure dressing in place per Dr. Vega Pancreatic adenocarcinoma Continue home pain medication regimen Patient lost 100 pounds in the span of one year He is currently jaundiced with scleral icterus. This has been present for the last 2 weeks Appreciate oncology consult Hypothyroidism Continue home Synthroid COPD Duo nebs as needed Alcohol abuse Thiamine/folate/multivitamins [facility] protocol, monitor for signs of withdrawal DVT prophylaxis SCDs Discharge planning Case discussed with pulmonology, plan for discharge tomorrow if chest x-ray results show stability in pneumothorax Chuck Sharpe MD Sep 21, 2017 20:01
--- NOTE | 2017-09-21 21:47 | RADRPT ---
EXAM DATE/TIME: 09/21/2017 20:23 [facility] COMPARISON: CHEST PA & LAT, September 20, 2017, 11:04. INDICATIONS : Evaluate for pneumothorax. MEDICAL HISTORY : Hypertension. Chronic obstructive pulmonary disease. SURGICAL HISTORY : Port. ENCOUNTER: Subsequent ACUITY: 4 - 6 days PAIN SCORE: 0/10 LOCATION: Bilateral chest FINDINGS: There is a CT compatible [id number]-u-[id number] in place from the right internal jugular approach. Again noted is a right pneumothorax measuring up to 2.5 cm. This is unchanged from the prior exam. The lungs denny ear grossly clear. The heart size is normal. No effusion is seen. CONCLUSION: Persistent mild pneumothorax over the right upper chest which is unchanged from the prior exam. Narciso Sargent MD on September 21, 2017 at 21:43 Board Certified Radiologist. This report was verified electronically.
[2017-09-22 00:07] VITALS: BP 126/83; PULSE 57; PULSE 84; RESP 16; TEMP 98; O2SAT 97
[2017-09-22] MEDS: CEPHALEXIN MONOHYDRATE 500 MG CAP PO SCH ×3 (00:09→10:48)
[2017-09-22] MEDS: HYDROmorphone HCL PF 2 MG/ML VIAL IV PUSH PRN ×3 (02:06→15:11)
[2017-09-22 04:09] VITALS: PULSE 59
[2017-09-22 05:14] VITALS: BP 127/82; PULSE 55; RESP 15; TEMP 98.4; O2SAT 99
[2017-09-22] MEDS: SODIUM CHLOR 0.9% 1000 ML INJ 1,000 ML IV SCH (05:15)
[2017-09-22] MEDS: LEVOTHYROXINE SODIUM 50 MCG TAB PO SCH (05:18)
[2017-09-22 08:00] VITALS: BP 150/78; PULSE 58; RESP 18; TEMP 97.9; O2SAT 100
[2017-09-22] MEDS: METHADONE HCL 10 MG TAB PO SCH (08:24)
[2017-09-22] MEDS: MULTIVITAMINS/MINERALS THERAPEUTIC TAB PO SCH (08:24)
[2017-09-22] MEDS: THIAMINE HCL 100 MG TAB PO SCH (08:24)
[2017-09-22] MEDS: MORPHINE SULFATE 15 MG CONTROLLED RELEASE TAB PO SCH (08:25)
[2017-09-22] MEDS: FOLIC ACID 1 MG TAB PO SCH (08:25)
[2017-09-22] MEDS: SODIUM CHLORIDE 0.9% FLUSH 10 ML FLUSH IV FLUSH SCH (08:25)
[2017-09-22] MEDS: DOCUSATE SODIUM 50 MG/SENNA 8.6 MG TAB PO SCH (08:26)
[2017-09-22] MEDS ORDERED: KETOROLAC TROMETHAMINE 30 MG/ML (IVP) VIAL IV PUSH PRN (10:00)
[2017-09-22] MEDS ORDERED: RESP: ALBUTEROL 2.5 MG/IPRATROPIUM 0.5 MG NEB (SCH) NEB (10:00)
[2017-09-22] MEDS ORDERED: RESP: ALBUTEROL 2.5 MG/IPRATROPIUM 0.5 MG NEB (PRN) NEB (10:00)
--- NOTE | 2017-09-22 10:00 | HHI.PR ---
Subjective Remarks Patient is on room air oxygen. Afebrile. Objective Vital Signs Vital Signs Date Time Temp Pulse Resp B/P (MAP) Pulse Ox O2 Delivery O2 Flow Rate FiO2 09/22/17 09:24 18 09/22/17 09:24 18 09/22/17 08:00 97.9 58 18 150/78 (102) 100 09/22/17 08:00 58 09/22/17 06:54 16 09/22/17 05:14 98.4 55 15 127/82 (97) 99 09/22/17 04:09 59 09/22/17 00:07 57 09/22/17 00:07 98.0 84 16 126/83 (97) 97 09/21/17 20:48 18 09/21/17 20:46 97.7 57 20 161/80 (107) 100 09/21/17 20:08 58 09/21/17 17:09 97.8 94 18 145/78 (100) 98 09/21/17 16:00 97.5 60 18 150/78 (102) 100 09/21/17 16:00 63 09/21/17 14:01 97.9 66 18 139/75 (96) 99 09/21/17 13:24 57 09/21/17 12:00 97.8 57 16 149/75 (99) 100 I/O 09/21/17 09/21/17 09/21/17 09/22/17 09/22/17 09/22/17 07:00 15:00 23:00 07:00 15:00 23:00 Intake Total 480 ml 1200 ml 480 ml Output Total 900 ml 1100 ml 900 ml Balance -420 ml 100 ml -900 ml 480 ml Intake Oral 480 ml 1200 ml 480 ml Output Urine Total 900 ml 1100 ml 900 ml # Bowel Movements 1 2 Result Diagram: 09/19/17 0536 09/19/17 0536 Other Results Last Impressions Chest X-Ray 09/21/17 0000 Signed Impressions: Service Date/Time: Thursday, September 21, 2017 20:23 - CONCLUSION: Persistent mild pneumothorax over the right upper chest which is unchanged from the prior exam. Narciso Sargent MD Abdomen CT 09/18/17 0000 Signed Impressions: Service Date/Time: Monday, September 18, 2017 18:24 - CONCLUSION: 1. Intrahepatic biliary ductal dilatation and dilated gallbladder. 2. Prominence of the pancreatic head but lack of intravenous contrast limits evaluation. 3. Small right anterior basilar pneumothorax. Vidal Richards MD Objective Remarks GENERAL: Cachectic WM,NAD SKIN: Warm and dry. HEAD: Normocephalic. EYES:++ scleral icterus. No injection or drainage. NECK: Supple, trachea midline. No JVD or lymphadenopathy. CARDIOVASCULAR: Regular rate and rhythm without murmurs, gallops, or rubs. RESPIRATORY: Breath sounds equal bilaterally. No accessory muscle use. GASTROINTESTINAL: Abdomen soft, non-tender, nondistended. MUSCULOSKELETAL: No cyanosis, or edema. BACK: Nontender without obvious deformity. No CVA tenderness. A/P Assessment and Plan 1. Right apical pneumothorax, 2. Carcinoma of the pancreas. 3. s/p bleeding during placement of port for treatment of pancreatic cancer. 4. COPD 5. Nicotine use. 6. H/O alcohol use. 7 Anemia [address] on oxygen keep sats >92% Bronchodilators Check CXR Pain control DW Dr. Sharpe Continue treatment plan Zack Kahn MD Sep 22, 2017 10:00
--- NOTE | 2017-09-22 10:42 | RADRPT ---
EXAM DATE/TIME: 09/22/2017 10:09 [facility] COMPARISON: CHEST SINGLE AP, September 18, 2017, 20:24. INDICATIONS : Short of breath. Followup right pneumothorax. MEDICAL HISTORY : Hypertension. Chronic obstructive pulmonary disease. Carcinoma, pancreas. SURGICAL HISTORY : Port. ENCOUNTER: Subsequent ACUITY: 4 - 6 days PAIN SCORE: 4/10 LOCATION: Bilateral chest FINDINGS: 2 AP erect portable views of the chest were obtained and again demonstrate a small right apical pneum othorax which measures up to approximately 2.1 cm in diameter. This does not appear significant urena ed. The right sided implantable port catheter remains in place. There are no confluent infiltrates or effusions. The heart and mediastinal structures remain within normal limits. The bony thorax is othe rwise intact. Overlying electrocardiogram leads remain. CONCLUSION: Stable appearance with small right apical pneumothorax. Gabriele Geller MD on September 22, 2017 at 10:37 Board Certified Radiologist. This report was verified electronically.
[2017-09-22] MEDS: ACETAMINOPHEN/HYDROcodone 325 MG/10 MG TAB PO PRN (10:48)
[2017-09-22] MEDS: RESP: ALBUTEROL 2.5 MG/IPRATROPIUM 0.5 MG NEB (SCH) NEB ×2 (10:59→15:34)
[2017-09-22 12:00] VITALS: BP 129/72; PULSE 66; RESP 18; TEMP 97.9; O2SAT 100
--- NOTE | 2017-09-22 15:10 | HHI.PR ---
Subjective Remarks 61-year-old male with persisting small pneumothorax. Today he complains of increased pain on the right side of his chest. X-ray did not show any change in his pneumothorax. Objective Vitals Vital Signs Date Time Temp Pulse Resp B/P (MAP) Pulse Ox O2 Delivery O2 Flow Rate FiO2 09/22/17 12:00 97.9 66 18 129/72 (91) 100 09/22/17 11:48 18 09/22/17 09:24 18 09/22/17 09:24 18 09/22/17 08:00 97.9 58 18 150/78 (102) 100 09/22/17 08:00 58 09/22/17 06:54 16 09/22/17 05:14 98.4 55 15 127/82 (97) 99 09/22/17 04:09 59 09/22/17 00:07 57 09/22/17 00:07 98.0 84 16 126/83 (97) 97 09/21/17 20:48 18 09/21/17 20:46 97.7 57 20 161/80 (107) 100 09/21/17 20:08 58 09/21/17 17:09 97.8 94 18 145/78 (100) 98 09/21/17 16:00 97.5 60 18 150/78 (102) 100 09/21/17 16:00 63 I/O 09/21/17 09/21/17 09/21/17 09/22/17 09/22/17 09/22/17 07:00 15:00 23:00 07:00 15:00 23:00 Intake Total 480 ml 1200 ml 480 ml Output Total 900 ml 1100 ml 900 ml Balance -420 ml 100 ml -900 ml 480 ml Intake Oral 480 ml 1200 ml 480 ml Output Urine Total 900 ml 1100 ml 900 ml # Bowel Movements 1 2 Result Diagram: 09/19/1736 09/19/17 0536 Objective Remarks GENERAL: Thin appearing man, 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 EYES: scleral icterus. No injection or drainage. NECK: Supple, trachea midline. No JVD or lymphadenopathy. CARDIOVASCULAR: Regular rate and rhythm without murmurs, gallops, or rubs. RESPIRATORY: Breath sounds equal bilaterally. No accessory muscle use. GASTROINTESTINAL: Abdomen soft, non-tender, nondistended. EXTREMITIES: No cyanosis, or edema. NEUROLOGICAL: Awake, alert, and oriented x 3. Non-focal. A/P Problem List: (1) Pneumothorax ICD Code: J93.9 - Pneumothorax, unspecified (2) Pancreatic cancer ICD Code: C25.9 - Malignant neoplasm of pancreas, unspecified Assessment and Plan Pneumothorax Chest x-ray exams thus far shows stability of his pneumothorax Repeat chest x-ray ordered again, result was unchanged Patient complains of increased comfort in his right chest Toradol was added as a breakthrough pain option, continuing chronic pain meds plus Dilaudid Chest tube placement was canceled due to bleeding risk Appreciate oncology following Appreciate pulmonology consult Postprocedural bleed Excessive bleeding during placement of port for treatment of pancreatic cancer Patient has a history of aspirin use and excessive use of Goody powder Required 1 unit of fresh frozen plasma Bleeding is currently resolved Pancreatic adenocarcinoma Continue home pain medication regimen Patient lost 100 pounds in the span of one year He is currently jaundiced with scleral icterus x 2 weeks Appreciate oncology consult Hypothyroidism Continue home Synthroid COPD Duo nebs as needed Alcohol abuse Thiamine/folate/multivitamins [facility] protocol, monitor for signs of withdrawal DVT prophylaxis SCDs Discharge planning Increase in his pain, not well controlled, discharge delayed Chuck Sharpe MD Sep 22, 2017 15:10
[2017-09-22 15:41] VITALS: RESP 18
--- NOTE | 2017-09-22 16:58 | HHI.DS ---
Discharge Summary Admission Date Sep 20, 2017 at 17:43 Discharge Date: Sep 22, 2017 Admitting Diagnosis Postprocedural bleeding, coagulopathy (1) Pneumothorax ICD Code: J93.9 - Pneumothorax, unspecified (2) Pancreatic cancer ICD Code: C25.9 - Malignant neoplasm of pancreas, unspecified Procedures none Brief History - From Admission 61-year-old male with a past medical history significant for locally advanced pancreatic adenocarcinoma, anxiety, COPD, hypothyroidism and migraine presents to the emergency department for evaluation of bleeding. The patient had an Vjcegh-g-Vlsn placed by interventional radiology earlier yesterday morning who presented to the emergency department following the procedure for continued bleeding/oozing from the site. A pressure dressing was applied and the patient was discharged home. He returned to the emergency department with the pressure dressing saturated again. He denies touching the dressing. He denies any blood thinners or anticoagulant use. Of note, the patient does take 2-3 Goody' s packs daily and 3 days ago took approximately 5 packs. He denies any chest pain or shortness of breath. Endorses abdominal pain that is baseline. No nausea/vomiting/diarrhea. No lateralizing signs/symptoms. Positive fatigue/ weakness. 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 EYES: scleral icterus. No injection or drainage. NECK: Supple, trachea midline. No JVD or lymphadenopathy. CARDIOVASCULAR: Regular rate and rhythm without murmurs, gallops, or rubs. RESPIRATORY: Breath sounds equal bilaterally. No accessory muscle use. GASTROINTESTINAL: Abdomen soft, non-tender, nondistended. EXTREMITIES: No cyanosis, or edema. NEUROLOGICAL: Awake, alert, and oriented x 3. Non-focal. Hospital Course 61-year-old male with recent diagnosis of pancreatic adenocarcinoma presented to the ER 3 days ago following traumatic bleeding during his port placement on the right side of his chest. He had right-sided chest pain at the time and mild shortness of breath. X-rays in the ER revealed pneumothorax which was described as "small". Repeat chest x-rays showed stability, no worsening. Patient has had a combination of good days and bad days regarding the pain that this is caused him but he has no respiratory distress. Today he has been offered a follow-up by oncology. Patient has expressed to his nurse that he has going to go home by [address] [place] [address] with or without a discharge order. He states his pain is controlled enough to manage at home. Since all were doing is monitoring him I previously consulted pulmonology who agreed that when he felt ready he could be managed at home with optional chest x-ray follow-up. Chest x-ray orders are provided and patient is instructed to return if anything worsens. Pt Condition on Discharge: Good Discharge Disposition: Discharge Home Discharge Time: <= 30 minutes Discharge Instructions DIET: Follow Instructions for: As Tolerated, No Restrictions Activities you can perform: Weight Bearing as Chuck Colunga MD Sep 22, 2017 16:58
== END 2017-09-22 18:06 | disposition home or self-care (01) | DRG 315 ==
LOC: NEPD 19:45 → NEDA 09-18 00:50 → NEDH 09-18 06:18 → HCIN 09-18 17:07 → OBSVTOIN 09-20 17:43
PROVIDERS: ADMIT Family Medicine; ATTEND Family Medicine
PROC: 6A550Z2 Pheresis of Platelets, Single (ICD-10-PCS; principal; 2017-09-18)
PROC: 30233K1 Transfusion of Nonautologous Frozen Plasma into Peripheral Vein, Percutaneous Approach (ICD-10-PCS; 2017-09-18)
DX: T82.838A Hemorrhage due to vascular prosthetic devices, implants and grafts, initial encounter (principal); C25.9 Malignant neoplasm of pancreas, unspecified; J93.9 Pneumothorax, unspecified; J44.9 Chronic obstructive pulmonary disease, unspecified; E03.9 Hypothyroidism, unspecified; D64.9 Anemia, unspecified; F10.10 Alcohol abuse, uncomplicated; F17.210 Nicotine dependence, cigarettes, uncomplicated; F41.9 Anxiety disorder, unspecified; G43.909 Migraine, unspecified, not intractable, without status migrainosus; Z79.891 Long term (current) use of opiate analgesic; Z79.899 Other long term (current) drug therapy
CPT/HCPCS: 36430; 71045; 71046; 74150; 80048; 80053; 80076; 85014; 85018; 85025; 85610; 85730; 86850; 86900; 86901; 86927; 94150; 94640; 94664; J1170; J2270; J7030; P9017; P9035

== ENCOUNTER 2017-09-26 05:49 | Emergency (ER) | payer MEDICAID ==
[~2017-09-26] VITALS: Ht 185.4 cm; Wt 54.0 kg
[~2017-09-26 05:49] MED LIST changes: +ALPR1TAB3 PO; -LISI-519 PO; +RANI150T PO; -THIA100 PO; -XANA2TAB2 PO
[2017-09-26 06:00] VITALS: BP 127/65; PULSE 70; RESP 18; TEMP 97.6; O2SAT 100
[2017-09-26 06:15] VITALS: BP 142/66; PULSE 63; RESP 20; TEMP 97.6; O2SAT 99
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
--- NOTE | 2017-09-26 06:59 | RADRPT ---
EXAM DATE/TIME: 09/26/2017 06:41 [facility] COMPARISON: CHEST SINGLE AP, September 22, 2017, 10:09. INDICATIONS : Evaluate port placement. Patient rolled over and felt like his port moved. MEDICAL HISTORY : Hypertension. Chronic obstructive pulmonary disease. Carcinoma, pancreas. SURGICAL HISTORY : Infusaport. ENCOUNTER: Initial ACUITY: 1 day PAIN SCORE: 0/10 LOCATION: Right upper chest FINDINGS: A single view of the chest demonstrates a right Wpgbep-i-Esld in right atrium. No consolidation or si gnificant effusion. Tiny right apical pneumothorax improved from September 22. Tortuous aorta. CONCLUSION: 1. Lzgung-w-Ljle tip in right atrium, unchanged. Tiny right apical pneumothorax improved from September 03 1. Yuniel Gerard MD on September 26, 2017 at 6:57 Board Certified Radiologist. This report was verified electronically.
[2017-09-26 07:10] LABS: AUTOMATED NEUTROPHIL # 4.8 TH/MM3 (1.8-7.7); BASOPHIL # 0.1 TH/MM3 (0-0.2); BASOPHIL % 1.1 % (0.0-2.0); EOSINOPHIL # 0.2 TH/MM3 (0-0.4); EOSINOPHIL % 2.6 % (0.0-4.0); HEMATOCRIT 31.2 % (39.0-51.0); HEMOGLOBIN 10.8 GM/DL (13.0-17.0); LYMPH % 27.2 % (9.0-44.0); LYMPHOCYTE # 2.3 TH/MM3 (1.0-4.8); MEAN CELL VOLUME 82.8 FL (80.0-100.0); MEAN CORPUSCULAR HEMOGLOBIN 28.5 PG (27.0-34.0); MEAN CORPUSCULAR HGB CONC 34.5 % (32.0-36.0); MONO % 11.2 % (0.0-8.0); MONOCYTE # 0.9 TH/MM3 (0-0.9); NEUT % 57.9 % (16.0-70.0); PLATELET COUNT 207 TH/MM3 (150-450); RED BLOOD COUNT 3.77 MIL/MM3 (4.50-5.90); RED CELL DISTRIBUTION WIDTH 15.7 % (11.6-17.2); WHITE BLOOD COUNT 8.3 TH/MM3 (4.0-11.0)
--- NOTE | 2017-09-26 07:10 | PD ---
Physical Exam Date Seen by Provider: Sep 26, 2017 Data Data Last Documented VS Vital Signs Date Time Temp Pulse Resp B/P (MAP) Pulse Ox O2 Delivery O2 Flow Rate FiO2 09/26/17 06:15 97.6 63 20 142/66 (91) 99 Room Air Orders Orders Complete Blood Count With Diff (09/26/17 06:37) Basic Metabolic Panel (Bmp) (09/26/17 06:37) Troponin I (09/26/17 06:37) Electrocardiogram (09/26/17 06:37) Chest, Single Ap (09/26/17 06:37) Labs Laboratory Tests Test 09/26/17 06:46 White Blood Count 8.3 TH/MM3 Red Blood Count 3.77 MIL/MM3 Hemoglobin 10.8 GM/DL Hematocrit 31.2 % Mean Corpuscular Volume 82.8 FL Mean Corpuscular Hemoglobin 28.5 PG Mean Corpuscular Hemoglobin Concent 34.5 % Red Cell Distribution Width 15.7 % Platelet Count 207 TH/MM3 Mean Platelet Volume 10.0 FL Neutrophils (%) (Auto) 57.9 % Lymphocytes (%) (Auto) 27.2 % Monocytes (%) (Auto) 11.2 % Eosinophils (%) (Auto) 2.6 % Basophils (%) (Auto) 1.1 % Neutrophils # (Auto) 4.8 TH/MM3 Lymphocytes # (Auto) 2.3 TH/MM3 Monocytes # (Auto) 0.9 TH/MM3 Eosinophils # (Auto) 0.2 TH/MM3 Basophils # (Auto) 0.1 TH/MM3 CBC Comment DIFF FINAL Differential Comment Blood Urea Nitrogen 11 MG/DL Creatinine 0.79 MG/DL Random Glucose 85 MG/DL Calcium Level 9.3 MG/DL Sodium Level 136 MEQ/L Potassium Level 3.7 MEQ/L Chloride Level 102 MEQ/L Carbon Dioxide Level 27.3 MEQ/L Anion Gap 7 MEQ/L Estimat Glomerular Filtration Rate 100 ML/MIN Troponin I LESS THAN 0.02 NG/ML [facility] Medical Record Reviewed: Yes Supervised Visit with MELINDA: No Narrative Course Received patient in signout by Dr. Bruner,. please see previous provider's chart for full hpi and workup of patient Patient is a 61-year-old male with history of pancreatic adenocarcinoma, COPD as well as anxiety. Patient reports that he recently had a port placed as he is getting ready for chemotherapy. Patient reports that he was admitted last week as he developed a pneumothorax after the port was placed. Patient reports that he woke up around 3 AM this morning feeling short of breath and was concerned that he may have another pneumothorax. Patient is here to make sure his port is okay and hasn't fallen out of him and he also wanted to make sure that he didn't have a pneumothorax. Patient with no chest pain or shortness of breath at this time, no fevers or chills. Patient reports that he is feeling much better after he found that his x-ray was improving Patient with no complaints at this time. Vital Signs Date Time Temp Pulse Resp B/P (MAP) Pulse Ox O2 Delivery O2 Flow Rate FiO2 09/26/17 06:15 97.6 63 20 142/66 (91) 99 Room Air 09/26/17 06:00 97.6 70 18 127/65 (85) 100 Last Impressions Chest X-Ray 09/26/17 0637 Signed Impressions: Service Date/Time: Tuesday, September 26, 2017 06:41 - CONCLUSION: 1. Hnernn-n-Adhp tip in right atrium, unchanged. Tiny right apical pneumothorax improved from September 22. Yuniel Gerard MD X-ray of chest shows a tiny right apical pneumothorax which is improved from September 22, 2017. All labs and all studies reviewed with patient in detail. Patient reports that he is feeling much better. Patient will be discharged to home with outpatient follow-up. Diagnosis Primary Impression: Pneumothorax Patient Instructions: General Instructions Additional Instruction: Please provide patient with a copy of their lab work and studies at discharge* * Please follow up with your primary care doctor in 2-3 days Return to the ER if symptoms worsen or progress Return to the ER as needed Your x-ray of the chest shows a tiny right apical pneumothorax which is improved from September 22, 2017. Please follow up with your specialist as scheduled Disposition: 01 DISCHARGE HOME Condition: Stable JayceFatoumata Sep 26, 2017 07:10
[2017-09-26 07:21] LABS: BICARBONATE 27.3 MEQ/L (21.0-32.0); BLOOD UREA NITROGEN 11 MG/DL (7-18); CALCIUM 9.3 MG/DL (8.5-10.1); CHLORIDE 102 MEQ/L (98-107); CREATININE 0.79 MG/DL (0.60-1.30); GLOMERULAR FILTRATION RATE 100 ML/MIN (>89); GLUCOSE,RANDOM 85 MG/DL (74-106); SODIUM (NA) 136 MEQ/L (136-145)
[2017-09-26 07:26] LABS: TROPONIN I LESS THAN 0.02 NG/ML (0.02-0.05)
--- NOTE | 2017-09-26 12:21 | EKG ---
Date Performed: 09/26/2017 Time Performed: 06:52:22 PTAGE: 61 years EKG: SINUS BRADYCARDIA BORDERLINE ECG NO PREVIOUS TRACING DOCTOR: Oumar Frye Interpretating Date/Time 09/26/2017 12:19:40
== END 2017-09-26 09:01 | disposition home or self-care (01) ==
LOC: NEPC 05:49
DX: J93.9 Pneumothorax, unspecified (principal); R06.02 Shortness of breath; R94.31 Abnormal electrocardiogram [ECG] [EKG]; C25.9 Malignant neoplasm of pancreas, unspecified; I10 Essential (primary) hypertension; E03.9 Hypothyroidism, unspecified; K21.9 Gastro-esophageal reflux disease without esophagitis; Z87.19 Personal history of other diseases of the digestive system; Z87.39 Personal history of other diseases of the musculoskeletal system and connective tissue; Z86.69 Personal history of other diseases of the nervous system and sense organs; Z87.09 Personal history of other diseases of the respiratory system; Z85.828 Personal history of other malignant neoplasm of skin
CPT/HCPCS: 71045; 80048; 84484; 85025; 93005

== ENCOUNTER 2017-10-03 12:45 | Emergency (ER) | payer MEDICAID ==
[~2017-10-03] VITALS: Ht 185.4 cm; Wt 55.0 kg
[~2017-10-03 12:45] MED LIST changes: -ALPR1TAB3 PO; -HYDR-3366 PO
[2017-10-03 12:46] VITALS: BP 169/86; PULSE 78; RESP 20; TEMP 97.4; O2SAT 100
[2017-10-03 13:00] VITALS: BP 150/80; PULSE 68; RESP 17; TEMP 97.6; O2SAT 100
[2017-10-03] MEDS ORDERED: HYDROmorphone HCL PF 2 MG/ML VIAL IV PUSH ONE (13:30)
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
[2017-10-03 13:43] LABS: AUTOMATED NEUTROPHIL # 6.8 TH/MM3 (1.8-7.7); BASOPHIL % 0.4 % (0.0-2.0); EOSINOPHIL # 0.1 TH/MM3 (0-0.4); EOSINOPHIL % 0.7 % (0.0-4.0); HEMATOCRIT 35.3 % (39.0-51.0); LYMPH % 13.1 % (9.0-44.0); LYMPHOCYTE # 1.1 TH/MM3 (1.0-4.8); MEAN CELL VOLUME 82.9 FL (80.0-100.0); MEAN CORPUSCULAR HEMOGLOBIN 28.2 PG (27.0-34.0); MEAN PLATELET VOLUME 9.4 FL (7.0-11.0); MONO % 6.4 % (0.0-8.0); MONOCYTE # 0.5 TH/MM3 (0-0.9); NEUT % 79.4 % (16.0-70.0); PLATELET COUNT 296 TH/MM3 (150-450); RED BLOOD COUNT 4.25 MIL/MM3 (4.50-5.90); RED CELL DISTRIBUTION WIDTH 15.8 % (11.6-17.2); WHITE BLOOD COUNT 8.5 TH/MM3 (4.0-11.0)
[2017-10-03 14:15] LABS: ALBUMIN 2.6 GM/DL (3.4-5.0); AST (GOT) 126 U/L (15-37); BICARBONATE 27.2 MEQ/L (21.0-32.0); BLOOD UREA NITROGEN 6 MG/DL (7-18); CALCIUM 9.2 MG/DL (8.5-10.1); CHLORIDE 103 MEQ/L (98-107); CREATININE 0.71 MG/DL (0.60-1.30); GLOMERULAR FILTRATION RATE 114 ML/MIN (>89); GLUCOSE,RANDOM 113 MG/DL (74-106); SODIUM (NA) 138 MEQ/L (136-145)
[2017-10-03 14:16] LABS: ALT (GPT) 187 U/L (12-78)
[2017-10-03 14:18] LABS: ALKALINE PHOSPHATASE 858 U/L (45-117); TOTAL BILIRUBIN ADULT 12.5 MG/DL (0.2-1.0); TOTAL PROTEIN 6.4 GM/DL (6.4-8.2)
[2017-10-03 15:02] VITALS: BP 128/80; PULSE 67; RESP 20; O2SAT 98
== END 2017-10-03 15:17 | disposition home or self-care (01) ==
LOC: NEPE 12:45
DX: G89.3 Neoplasm related pain (acute) (chronic) (principal); C25.0 Malignant neoplasm of head of pancreas; E03.9 Hypothyroidism, unspecified
CPT/HCPCS: 80053; 83690; 85025; 96374; 99284; J1170

== ENCOUNTER 2017-10-04 09:49 | Inpatient (IN) | payer MEDICAID, OTHER ==
[~2017-10-04] VITALS: Ht 185.4 cm; Wt 53.7 kg
[2017-10-04] VITALS (12 sets, daily range): BP systolic 125–193; BP diastolic 70–84; PULSE 53–66; RESP 16–20; TEMP 97.5–99; O2SAT 9–100
[2017-10-04] MEDS ORDERED: SODIUM CHLOR 0.9% 1000 ML INJ 1,000 ML IV SCH (11:07)
[2017-10-04] MEDS ORDERED: ONDANSETRON HCL 4 MG/2 ML VIAL IVP ONE (11:15)
[2017-10-04] MEDS ORDERED: HYDROmorphone HCL PF 1 MG/ML VIAL IVS ONE (11:15)
[2017-10-04] MEDS: HYDROmorphone HCL PF 0.5 MG/0.5 ML SYRINGE ONE ×2 (11:15→11:22)
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
[2017-10-04] MEDS ORDERED: DIATRIZOATE MEGLUM/DIATRIZOATE SOD 9 ML CUP ONE (11:18)
[2017-10-04] MEDS: SODIUM CHLORIDE 0.9% FLUSH 10 ML FLUSH IV FLUSH PRN ×2 (11:22→14:48)
[2017-10-04 11:40] LABS: AUTOMATED NEUTROPHIL # 6.5 TH/MM3 (1.8-7.7); BASOPHIL # 0.1 TH/MM3 (0-0.2); BASOPHIL % 0.6 % (0.0-2.0); EOSINOPHIL # 0.1 TH/MM3 (0-0.4); EOSINOPHIL % 0.6 % (0.0-4.0); HEMATOCRIT 32.3 % (39.0-51.0); HEMOGLOBIN 11.2 GM/DL (13.0-17.0); LYMPH % 19.6 % (9.0-44.0); LYMPHOCYTE # 1.8 TH/MM3 (1.0-4.8); MEAN CELL VOLUME 82.1 FL (80.0-100.0); MEAN CORPUSCULAR HEMOGLOBIN 28.4 PG (27.0-34.0); MEAN CORPUSCULAR HGB CONC 34.6 % (32.0-36.0); MEAN PLATELET VOLUME 9.2 FL (7.0-11.0); MONO % 6.8 % (0.0-8.0); MONOCYTE # 0.6 TH/MM3 (0-0.9); NEUT % 72.4 % (16.0-70.0); PLATELET COUNT 308 TH/MM3 (150-450); RED BLOOD COUNT 3.93 MIL/MM3 (4.50-5.90); RED CELL DISTRIBUTION WIDTH 15.3 % (11.6-17.2)
[2017-10-04 11:50] LABS: INTERNATIONAL NORMALIZED RATIO 1.4 RATIO
[2017-10-04 12:03] LABS: ALBUMIN 2.5 GM/DL (3.4-5.0); AST (GOT) 152 U/L (15-37); BICARBONATE 26.6 MEQ/L (21.0-32.0); BLOOD UREA NITROGEN 7 MG/DL (7-18); CALCIUM 8.6 MG/DL (8.5-10.1); CHLORIDE 105 MEQ/L (98-107); CREATININE 0.61 MG/DL (0.60-1.30); GLOMERULAR FILTRATION RATE 135 ML/MIN (>89); GLUCOSE,RANDOM 106 MG/DL (74-106); SODIUM (NA) 140 MEQ/L (136-145)
[2017-10-04 12:04] LABS: ALT (GPT) 183 U/L (12-78)
[2017-10-04 12:06] LABS: ALKALINE PHOSPHATASE 849 U/L (45-117); TOTAL PROTEIN 6.1 GM/DL (6.4-8.2)
[2017-10-04 13:22] LABS: BILIRUBIN, URINE LARGE (NEG); BLOOD, URINE NEG (NEG); GLUCOSE,URINE NEG (NEG); KETONE, URINE NEG (NEG); NITRITE,URINE NEG (NEG); PH, URINE 6.5 (5.0-8.5); URINE LEUKOCYTE ESTERASE NEG (NEG)
[2017-10-04 13:23] LABS: URINE COLOR DARK-BROWN (YELLW/STRAW)
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
[2017-10-04] MEDS ORDERED: IOHEXOL 350 MG/ML 10 ML VIAL (for RAD DIAG) IVCONTRAST ONE (14:12)
[2017-10-04] MEDS ORDERED: HYDROmorphone HCL PF 0.5 MG/0.5 ML SYRINGE ONE (14:45)
[2017-10-04] MEDS ORDERED: HYDROmorphone HCL PF 0.5 MG/0.5 ML SYRINGE IV PUSH ONE (14:45)
--- NOTE | 2017-10-04 14:53 | RADRPT ---
EXAM DATE/TIME: 10/04/2017 14:03 [facility] COMPARISON: CT ABDOMEN W/O CONTRAST, September 18, 2017, 18:24. INDICATIONS : Mid abdominal pain, jaudice IV CONTRAST: 93 cc Omnipaque 350 (iohexol) IV ORAL CONTRAST: Partial prescribed oral contrast ingested. RADIATION DOSE: 6.64 CTDIvol (mGy) MEDICAL HISTORY : Hypertension. Chronic obstructive pulmonary disease. Carcinoma, pancreas. SURGICAL HISTORY : None. ENCOUNTER: Initial ACUITY: 1 day PAIN SCALE: 10/10 LOCATION: abdomen TECHNIQUE: Volumetric scanning of the abdomen and pelvis was performed. Using automated exposure control and ad justment of the mA and/or kV according to patient size, radiation dose was kept as low as reasonably achievable to obtain optimal diagnostic quality images. DICOM format image data is available electro nically for review and comparison. FINDINGS: LOWER LUNGS: The visualized lower lungs are clear. LIVER: There is [id number] dilation of the intrahepatic biliary system and dilation of the common he patic duct, measuring up to 2.0 cm. No focal masses seen in the liver. The gallbladder is distended , measuring in excess of 10 cm. No calcified gallstones. SPLEEN: Normal size without lesion. PANCREAS: Abnormal appearance to the head of the pancreas with an ill-defined area of decreased enhancement eliud suring 2.5 cm. The distal common bile duct is not identified. The pancreatic duct in the body and t ail is dilated with nodular-type appearance and the pancreatic duct measuring up to 7 mm. There is s ome induration of the soft tissues the peripancreatic region. KIDNEYS: Normal in size and shape. There is no mass, stone or hydronephrosis. ADRENAL GLANDS: Within normal limits. VASCULAR: There is no aortic aneurysm. BOWEL/MESENTERY: No dilated loops of small or large bowel. No definite evidence of free fluid, however, there is fernando ration of the mesenteric fat most ABDOMINAL WALL: Within normal limits. RETROPERITONEUM: There is no lymphadenopathy. BLADDER: No wall thickening or mass. REPRODUCTIVE: Within normal limits. INGUINAL: There is no lymphadenopathy or hernia. MUSCULOSKELETAL: Within normal limits for patient age. CONCLUSION: Findings suggest ill-defined mass in the head of the pancreas measuring 2.5 cm with associated dilati on of the distal pancreatic duct, more dilation of the common hepatic duct and intrahepatic biliary d uctal dilatation. Sebastian Suggs MD on October 04, 2017 at 14:35 Board Certified Radiologist. This report was verified electronically.
[2017-10-04] MEDS ORDERED: NALOXONE HCL 0.4 MG/ML AMP IV PUSH PRN (15:00)
[2017-10-04] MEDS ORDERED: ONDANSETRON HCL 4 MG/2 ML VIAL IVP PRN (15:00)
[2017-10-04] MEDS ORDERED: TEMAZEPAM 15 MG CAP PO PRN (15:00)
[2017-10-04] MEDS ORDERED: LACTULOSE SYRUP 20 GM/30 ML CUP PO PRN (15:00)
[2017-10-04] MEDS ORDERED: SENNOSIDES 8.6 MG TAB PO PRN (15:00)
[2017-10-04] MEDS ORDERED: MAGNESIUM HYDROXIDE SUSP 30 ML CUP PO PRN (15:00)
[2017-10-04] MEDS ORDERED: BISACODYL 10 MG SUPP RECTAL PRN (15:00)
[2017-10-04] MEDS ORDERED: MORPHINE SULFATE 4 MG/ML INJ IV PUSH PRN (15:30)
--- NOTE | 2017-10-04 16:05 | PD.CONS ---
HPI History of Present Illness This is a 61 year old male with pancreatic cancer diagnosed in June 2017 who presented with worsening epigastric pain and jaundice. He was advised to come by Dr Lopez for stenting of the bile duct. Pt has had abd pain since june but it worsened and became severe in the last 4 days. 1 week ago he noticed darkening of his urine and yellowing of his eyes and skin. He had EUS [address] Coronado at [facility] and pathology was invasive adenocarcinoma. CT today shows pancreatic mass 2.5cm, dilated common hepatic duct, intrahepatic ductal dilatation. he is s/p port placement and was supposed to be starting chemo today. (Melinda Russ) PFSH Past Medical History herniated disc HTN pancreatic ca hypothyroid CHF Past Surgical History port placement (Melinda Russ) Coded Allergies: No Known Allergies (Verified Allergy, Unknown, 10/04/17) Family History thyroid ca - both parents colon ca - mother Social History no etoh, quit june occasional cigarettes, trying to quit no illicit drugs (Melinda Russ) Review of Systems Constitutional: COMPLAINS OF: Fatigue, Weight loss Endocrine: DENIES: Polydipsia Eyes: DENIES: Blurred vision Ears, nose, mouth, throat: DENIES: Hearing loss Respiratory: DENIES: Cough Cardiovascular: DENIES: Chest pain Gastrointestinal: COMPLAINS OF: Abdominal pain, DENIES: Nausea, Vomiting Genitourinary: DENIES: Urinary incontinence Musculoskeletal: COMPLAINS OF: Back pain Integumentary: COMPLAINS OF: Jaundice Hematologic/lymphatic: DENIES: Bruising Immunologic/allergic: DENIES: Eczema Neurologic: DENIES: Abnormal gait Psychiatric: DENIES: Confusion (Melinda Russ) GI Exam Vitals I&O Vital Signs Date Time Temp Pulse Resp B/P (MAP) Pulse Ox O2 Delivery O2 Flow Rate FiO2 10/04/17 15:18 16 10/04/17 15:08 98.1 60 16 167/83 (111) 99 Room Air 10/04/17 14:49 98.1 58 17 176/82 (113) 98 Room Air 10/04/17 13:14 97.8 56 19 161/81 (107) 99 Room Air 10/04/17 12:00 97.8 58 20 153/84 (107) 97 Room Air 10/04/17 11:55 16 10/04/17 11:10 20 98 Room Air 10/04/17 10:03 17 10/04/17 10:03 53 17 193/84 (120) 98 Room Air 10/04/17 09:51 97.5 62 20 172/83 (112) 100 I/O 10/03/17 10/03/17 10/03/17 10/04/17 10/04/17 10/04/17 07:00 15:00 23:00 07:00 15:00 23:00 Intake Total 1000 ml Output Total 900 ml Balance 100 ml Intake IV Total 1000 ml Output Urine Total 900 ml # Voids 2 # Bowel Movements 0 Imaging Last Impressions Abdomen/Pelvis CT 10/04/17 1107 Signed Impressions: Service Date/Time: October 14:03 - CONCLUSION: Findings suggest ill-defined mass in the head of the pancreas measuring 2.5 cm with associated dilation of the distal pancreatic duct, more dilation of the common hepatic duct and intrahepatic biliary ductal dilatation. Sebastian Suggs MD Laboratory Test 10/04/17 11:20 10/04/17 13:14 White Blood Count 9.0 TH/MM3 Red Blood Count 3.93 MIL/MM3 Hemoglobin 11.2 GM/DL Hematocrit 32.3 % Mean Corpuscular Volume 82.1 FL Mean Corpuscular Hemoglobin 28.4 PG Mean Corpuscular Hemoglobin Concent 34.6 % Red Cell Distribution Width 15.3 % Platelet Count 308 TH/MM3 Mean Platelet Volume 9.2 FL Neutrophils (%) (Auto) 72.4 % Lymphocytes (%) (Auto) 19.6 % Monocytes (%) (Auto) 6.8 % Eosinophils (%) (Auto) 0.6 % Basophils (%) (Auto) 0.6 % Neutrophils # (Auto) 6.5 TH/MM3 Lymphocytes # (Auto) 1.8 TH/MM3 Monocytes # (Auto) 0.6 TH/MM3 Eosinophils # (Auto) 0.1 TH/MM3 Basophils # (Auto) 0.1 TH/MM3 CBC Comment DIFF FINAL Differential Comment Prothrombin Time 14.0 SEC Prothromb Time International Ratio 1.4 RATIO Activated Partial Thromboplast Time 29.5 SEC Blood Urea Nitrogen 7 MG/DL Creatinine 0.61 MG/DL Random Glucose 106 MG/DL Total Protein 6.1 GM/DL Albumin 2.5 GM/DL Calcium Level 8.6 MG/DL Alkaline Phosphatase 849 U/L Aspartate Amino Transf (AST/SGOT) 152 U/L Alanine Aminotransferase (ALT/SGPT) 183 U/L Total Bilirubin 13.0 MG/DL Sodium Level 140 MEQ/L Potassium Level 3.1 MEQ/L Chloride Level 105 MEQ/L Carbon Dioxide Level 26.6 MEQ/L Anion Gap 8 MEQ/L Estimat Glomerular Filtration Rate 135 ML/MIN Lactic Acid Level 0.7 mmol/L Lipase 390 U/L Urine Color DARK-BROWN Urine Turbidity CLEAR Urine pH 6.5 Urine Specific [place] 1.011 Urine Protein NEG mg/dL Urine Glucose (UA) NEG mg/dL Urine Ketones NEG mg/dL Urine Occult Blood NEG Urine Nitrite NEG Urine Bilirubin LARGE Urine Urobilinogen LESS THAN 2.0 MG/DL Urine Leukocyte Esterase NEG Urine RBC LESS THAN 1 /hpf Urine WBC 3 /hpf Microscopic Urinalysis Comment CULT NOT INDICATED Physical Examination HEENT: PERRL; normocephalic; atraumatic; +icterus CHEST: CTA CARDIAC: RRR ABDOMEN: Soft, nondistended, TTP RUQ and epigastrium, some firmness palpated epigastrium; no hepatosplenomegaly; bowel sounds are present in all four quadrants. EXTREMITIES: No clubbing, cyanosis, or edema. SKIN: Normal; no rash; +jaundice STOCKROOM CLERK: lethargic (Melinda Russ) Assessment and Plan Plan ASSESSMENT - jaundice, abd pain - pancreatic adenocarcinoma, poss obstruction. CT showing ductal dilatation, pancreatic mass 2.5cm seeing oncology, s/p port placement and starting chemo imminently. LFTs elevated obstructive pattern. PLAN - ERCP with stent placement - obtain consent - NPO after midnight - full liquids - await oncology consult - further recs to follow pt seen by myself and Dr Wells and this note is on his behalf (Melinda Russ) Plan Patient was seen and examined, agree with above note, plan on ERCP tomorrow, if not successful patient will need PTC (Karime Wells MD) Melinda Russ October 04, 2017 16:05 Karime Wells MD October 05, 2017 12:49
[2017-10-04] MEDS: HYDROmorphone HCL PF 2 MG/ML VIAL IV PUSH PRN (18:09)
[2017-10-04] MEDS: MORPHINE SULFATE 4 MG/ML INJ IV PUSH PRN (22:06)
[2017-10-04] MEDS: FAMOTIDINE 20 MG TAB PO SCH (22:06)
[2017-10-04] MEDS: SODIUM CHLORIDE 0.9% FLUSH 10 ML FLUSH IV FLUSH SCH (22:06)
[2017-10-05] MEDS: HYDROmorphone HCL PF 2 MG/ML VIAL IV PUSH PRN ×6 (01:49→23:29)
[2017-10-05 04:11] VITALS: BP 132/67; PULSE 59; RESP 16; TEMP 98.7; O2SAT 97
[2017-10-05 05:13] LABS: AUTOMATED NEUTROPHIL # 5.4 TH/MM3 (1.8-7.7); BASOPHIL % 0.5 % (0.0-2.0); EOSINOPHIL # 0.1 TH/MM3 (0-0.4); EOSINOPHIL % 1.6 % (0.0-4.0); HEMATOCRIT 30.5 % (39.0-51.0); HEMOGLOBIN 10.4 GM/DL (13.0-17.0); LYMPH % 17.8 % (9.0-44.0); LYMPHOCYTE # 1.3 TH/MM3 (1.0-4.8); MEAN CELL VOLUME 82.9 FL (80.0-100.0); MEAN CORPUSCULAR HEMOGLOBIN 28.2 PG (27.0-34.0); MEAN PLATELET VOLUME 9.9 FL (7.0-11.0); MONO % 8.4 % (0.0-8.0); MONOCYTE # 0.6 TH/MM3 (0-0.9); NEUT % 71.7 % (16.0-70.0); PLATELET COUNT 230 TH/MM3 (150-450); RED BLOOD COUNT 3.68 MIL/MM3 (4.50-5.90); RED CELL DISTRIBUTION WIDTH 15.4 % (11.6-17.2); WHITE BLOOD COUNT 7.5 TH/MM3 (4.0-11.0)
[2017-10-05 05:22] LABS: ALBUMIN 2.2 GM/DL (3.4-5.0); ALT (GPT) 164 U/L (12-78); AST (GOT) 133 U/L (15-37); BICARBONATE 27.3 MEQ/L (21.0-32.0); BLOOD UREA NITROGEN 7 MG/DL (7-18); CALCIUM 8.5 MG/DL (8.5-10.1); CHLORIDE 106 MEQ/L (98-107); CREATININE 0.63 MG/DL (0.60-1.30); GLOMERULAR FILTRATION RATE 130 ML/MIN (>89); GLUCOSE,RANDOM 78 MG/DL (74-106); SODIUM (NA) 143 MEQ/L (136-145)
[2017-10-05 05:27] LABS: ALKALINE PHOSPHATASE 750 U/L (45-117); TOTAL BILIRUBIN ADULT 10.6 MG/DL (0.2-1.0); TOTAL PROTEIN 5.5 GM/DL (6.4-8.2)
[2017-10-05] MEDS: MORPHINE SULFATE 4 MG/ML INJ IV PUSH PRN ×2 (05:57→22:19)
[2017-10-05] MEDS: LEVOTHYROXINE SODIUM 50 MCG TAB PO SCH (05:57)
[2017-10-05 07:21] VITALS: BP 137/73; PULSE 52; RESP 16; TEMP 98.2; O2SAT 98
[2017-10-05] MEDS: FAMOTIDINE 20 MG TAB PO SCH ×2 (08:25→20:32)
[2017-10-05] MEDS: SODIUM CHLORIDE 0.9% FLUSH 10 ML FLUSH IV FLUSH SCH ×2 (08:26→20:33)
[2017-10-05] MEDS: DOCUSATE SODIUM 50 MG/SENNA 8.6 MG TAB PO SCH ×2 (08:26→20:32)
--- NOTE | 2017-10-05 10:07 | HHI.FPPN ---
Subjective Remarks No acute events overnight. Patient is looking forward to having procedure done. He continues to have the same amount of discomfort as yesterday. Medication is helping however. He denies fever, chills, shortness of breath, chest pain. (Luis Miguel Ellis MD R3) Objective Vitals Vital Signs Date Time Temp Pulse Resp B/P (MAP) Pulse Ox O2 Delivery O2 Flow Rate FiO2 10/05/17 09:13 21 10/05/17 07:21 98.2 52 16 137/73 (94) 98 10/05/17 06:05 16 10/05/17 04:11 98.7 59 16 132/67 (88) 97 10/05/17 02:27 18 10/04/17 23:37 99.0 66 17 125/73 (90) 97 10/04/17 20:29 98 10/04/17 19:38 98.7 60 16 126/70 (88) 98 10/04/17 18:01 98.9 64 16 139/82 (101) 99 10/04/17 17:30 97.8 57 16 148/77 (100) 99 10/04/17 15:18 16 10/04/17 15:08 98.1 60 16 167/83 (111) 99 Room Air 10/04/17 14:49 98.1 58 17 176/82 (113) 98 Room Air 10/04/17 13:14 97.8 56 19 161/81 (107) 99 Room Air 10/04/17 12:00 97.8 58 20 153/84 (107) 97 Room Air 10/04/17 11:55 16 10/04/17 11:10 20 98 Room Air I/O 10/04/17 10/04/17 10/04/17 10/05/17 10/05/17 10/05/17 06:59 14:59 22:59 06:59 14:59 22:59 Intake Total 1000 ml Output Total 900 ml 300 ml Balance 100 ml -300 ml Intake IV Total 1000 ml Output Urine Total 900 ml 300 ml # Voids 2 # Bowel Movements 0 (Luis Miguel Ellis MD R3) Result Diagram: 10/05/1731610/05/17316 Objective Remarks GENERAL: This is a cachectic, notably jaundiced male laying in bed in no acute distress. SKIN: Diffusely jaundiced. HEAD: Atraumatic. Normocephalic. No temporal or scalp tenderness. EYES: Pupils equal round and reactive. Extraocular motions intact. No injection or drainage. Prominent scleral icterus ENT: Nose without bleeding, purulent drainage or septal hematoma. Throat without erythema, tonsillar hypertrophy or exudate. Uvula midline. Airway patent. Poor dentition NECK: Trachea midline. No JVD or lymphadenopathy. Supple, nontender, no meningeal signs. CARDIOVASCULAR: Regular rate and rhythm without murmurs, gallops, or rubs. RESPIRATORY: Clear to auscultation. Breath sounds equal bilaterally. No wheezes , rales, or rhonchi. GASTROINTESTINAL: Abdomen soft, nondistended. TTP in epigastric region. No guarding. MUSCULOSKELETAL: Extremities without clubbing, cyanosis, or edema. No joint tenderness, effusion, or edema noted. No calf tenderness. NEUROLOGICAL: Awake and alert. Cranial nerves II through XII intact. Motor and sensory grossly within normal limits. Normal speech. (Luis Miguel Ellis MD R3) A/P Assessment and Plan 61-year-old male with history of locally advanced pancreatic carcinoma, COPD, hypothyroidism presenting to the ED after being sent by his oncologist Dr. Lopez with concerns for obstructive jaundice. Said progressively worsening abdominal pain, discoloration of the skin, dark-colored urine, white stools. CT scan on admission showing ill-defined mass in the head of the pancreas with associated dilation of the distal pancreatic duct, dilation of the common hepatic duct and intrahepatic biliary ducts. GI and oncology consult. (Luis Miguel Ellis MD R3) Attending Attestation Patient was seen, examined and discussed with the medicine team. He remains uncomfortable although the Dilaudid has helped. is visiting, and is concerned that he have his pain medications for when he leaves the hospital. She plans to discuss this with his oncologist. Physical exam is as noted in the resident note; he remains significantly jaundiced and cachectic but does appear more comfortable today. Anticipate ERCP with stent placement today in hopes that this will provide comfort. I agree with the plan. (Teri Ellis MD) Problem List: (1) Obstructive jaundice ICD Codes: K83.8 - Other specified diseases of biliary tract Status: Acute Plan: GI consulted. Currently n.p.o. ERCP with stent placement planned today. Morphine pain scale See pancreatic adenocarcinoma below (2) Pancreatic adenocarcinoma ICD Codes: C25.9 - Malignant neoplasm of pancreas, unspecified Plan: Patient with a known history of pancreatic adenocarcinoma, diagnosed in June 2017 Consulting oncology, Dr. Gore See plan for obstructive jaundice above (3) Hypothyroidism ICD Codes: E03.9 - Hypothyroidism, unspecified Plan: Known history of hypothyroidism Continue home levothyroxine (4) Anemia ICD Codes: D64.9 - Anemia, unspecified Status: Chronic Plan: Hemoglobin of 11.2 on admission Appears to be stable compared to recent hospitalizations Normal MCV, likely secondary to anemia of chronic disease We will continue to monitor (5) Hypertension ICD Codes: I10 - Essential (primary) hypertension Status: Resolved Plan: Currently resolved Likely secondary to pain IV Vasotec available as needed for systolic blood pressures greater than 170, diastolic pressures greater than 100 (6) FEN Plan: Fluids: Maintenance fluids while n.p.o. We will replace electrolytes as needed N.p.o. for possible procedure SCDs for DVT prophylaxis as patient may be undergoing procedure (Luis Miguel Ellis MD R3) Problem Qualifiers (1) Anemia: Qualified Codes: D64.9 - Anemia, unspecified Luis Miguel Ellis MD R3 October 05, 2017 10:07 Teri Ellis MD October 05, 2017 10:49
[2017-10-05] MEDS: NS + KCL 20 MEQ INJ 1,000 ML IV SCH ×2 (10:43→16:20)
[2017-10-05] MEDS ORDERED: LIDOCAINE HCL 1% PF 5 ML SYRINGE OTHER ONE (12:00)
[2017-10-05] MEDS ORDERED: SODIUM CHLORID 0.9% 500 ML INJ 500 ML IV ONE (12:00)
[2017-10-05] MEDS ORDERED: LABETALOL HCL 100 MG/20 ML VIAL IV ONE (12:00)
[2017-10-05] MEDS ORDERED: ONDANSETRON HCL 4 MG/2 ML VIAL IV ONE (12:00)
[2017-10-05] MEDS ORDERED: SUCCINYLCHOLINE CHLORIDE 100 MG/5 ML SYRINGE IV PUSH ONE (12:00)
[2017-10-05] MEDS ORDERED: SODIUM CHLORIDE 0.9% 10 ML VIAL IV ONE (12:00)
[2017-10-05] MEDS ORDERED: PHENYLEPH/NS 1000 MCG/10 ML SYR IV ONE (12:00)
[2017-10-05] MEDS ORDERED: PROPOFOL 200 MG/20 ML AMP IV ONE (12:00)
[2017-10-05] MEDS ORDERED: ePHEDrine/NS 25 MG/5 ML SYRINGE IV ONE (12:00)
--- NOTE | 2017-10-05 12:54 | PD.PROCEDR ---
GI Procedure PROCEDURE PERFORMED Attempted ERCP INDICATION FOR PROCEDURE Pancreatic cancer with severe jaundice and dilation of the biliary tree, because of total obstruction of the common bile duct PROCEDURE: The procedure, risks and benefits were discussed with Mr. German and informed consent was obtained. Anesthesia sedated him with Diprivan. He was placed in the left lateral decubitus position. ERCP: Attempted Patient was placed in a prone position. The Pentax videoscope was introduced through the oropharynx and advanced to the second portion of the duodenum, there was significant edema and prominent folds of the duodenum where the ampulla supposed to be with bulging most likely related to the tumor, I gave the patient glucagon and Kinevac to try to identify the ampulla but the ampula was not identified because of the amount of edema and prominent folds, the procedure was terminated at that time ESTIMATED BLOOD LOSS: None SPECIMENS REMOVED: None COMPLICATIONS: None IMPRESSION: Esophagus normal Stomach normal Duodenum significant edema and prominent folds with external compression unable to identify the ampulla despite using Kinevac and glucagon PLAN: PTCA for drainage of the biliary tree and stent placement Discussed the case with Dr. Jose ballesteros and he will perform the procedure today Karime Wells MD October 05, 2017 12:54
--- NOTE | 2017-10-05 12:56 | HHI.GIFU ---
Subjective Remarks Patient laying in bed, seems to be comfortable, severely jaundiced, abdominal discomfort Objective Vitals I&O Vital Signs Date Time Temp Pulse Resp B/P (MAP) Pulse Ox O2 Delivery O2 Flow Rate FiO2 10/05/17 09:13 21 10/05/17 07:21 98.2 52 16 137/73 (94) 98 10/05/17 06:05 16 10/05/17 04:11 98.7 59 16 132/67 (88) 97 10/05/17 02:27 18 10/04/17 23:37 99.0 66 17 125/73 (90) 97 10/04/17 20:29 98 10/04/17 19:38 98.7 60 16 126/70 (88) 98 10/04/17 18:01 98.9 64 16 139/82 (101) 99 10/04/17 17:30 97.8 57 16 148/77 (100) 99 10/04/17 15:18 16 10/04/17 15:08 98.1 60 16 167/83 (111) 99 Room Air 10/04/17 14:49 98.1 58 17 176/82 (113) 98 Room Air 10/04/17 13:14 97.8 56 19 161/81 (107) 99 Room Air I/O 10/04/17 10/04/17 10/04/17 10/05/17 10/05/17 10/05/17 07:00 15:00 23:00 07:00 15:00 23:00 Intake Total 1000 ml 400 ml Output Total 900 ml 300 ml Balance 100 ml -300 ml 400 ml Intake IV Total 1000 ml 400 ml Output Urine Total 900 ml 300 ml # Voids 2 # Bowel Movements 0 Laboratory Laboratory Tests Test 10/04/17 13:14 10/05/17 03:17 Urine Color DARK-BROWN Urine Turbidity CLEAR Urine pH 6.5 Urine Specific [place] 1.011 Urine Protein NEG Urine Glucose (UA) NEG Urine Ketones NEG Urine Occult Blood NEG Urine Nitrite NEG Urine Bilirubin LARGE Urine Urobilinogen LESS THAN 2.0 Urine Leukocyte Esterase NEG Urine RBC LESS THAN 1 Urine WBC 3 Microscopic Urinalysis Comment CULT NOT INDICATED White Blood Count 7.5 Red Blood Count 3.68 Hemoglobin 10.4 Hematocrit 30.5 Mean Corpuscular Volume 82.9 Mean Corpuscular Hemoglobin 28.2 Mean Corpuscular Hemoglobin Concent 34.0 Red Cell Distribution Width 15.4 Platelet Count 230 Mean Platelet Volume 9.9 Neutrophils (%) (Auto) 71.7 Lymphocytes (%) (Auto) 17.8 Monocytes (%) (Auto) 8.4 Eosinophils (%) (Auto) 1.6 Basophils (%) (Auto) 0.5 Neutrophils # (Auto) 5.4 Lymphocytes # (Auto) 1.3 Monocytes # (Auto) 0.6 Eosinophils # (Auto) 0.1 Basophils # (Auto) 0.0 CBC Comment DIFF FINAL Differential Comment Blood Urea Nitrogen 7 Creatinine 0.63 Random Glucose 78 Total Protein 5.5 Albumin 2.2 Calcium Level 8.5 Alkaline Phosphatase 750 Aspartate Amino Transf (AST/SGOT) 133 Alanine Aminotransferase (ALT/SGPT) 164 Total Bilirubin 10.6 Sodium Level 143 Potassium Level 3.2 Chloride Level 106 Carbon Dioxide Level 27.3 Anion Gap 10 Estimat Glomerular Filtration Rate 130 Lipase 157 Physical Exam HEENT: Pupils round and reactive to light; normocephalic; atraumatic; severe jaundice. Throat is clear. Cachectic NECK: Neck is supple, no JVD, no lymphadenopathy. CHEST: Chest is clear to auscultation and percussion. CARDIAC: Regular rate and rhythm with no murmur gallop or rubs. ABDOMEN: Soft, nondistended, mild midepigastric tenderness ; no hepatosplenomegaly; bowel sounds are present in all four quadrants. EXTREMITIES: No clubbing, cyanosis, or edema. SKIN: Normal; no rash; positive jaundice. 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 Assessment and Plan Plan Patient was seen and examined, ERCP not successful because significant edema and prominent folds with extrinsic effect of the mass , unable to identify the ampulla despite using Kinevac patient will need PTC, I discussed this with Dr. Jose Bradshaw and he will perform the procedure Karime Wells MD October 05, 2017 12:56
[2017-10-05] MEDS ORDERED: CHLORHEXIDINE GLUCONATE 2 % 1 PACK (2 CLOTHS) TOPICAL PRN (13:00)
[2017-10-05] MEDS ORDERED: SODIUM CHLORID 0.9% 500 ML IV PRN (13:00)
[2017-10-05] MEDS ORDERED: METOPROLOL TARTRATE 25 MG TAB PO PRN (13:00)
[2017-10-05] MEDS ORDERED: POVIDONE IODINE 5% (ANTISEPSIS KIT) 4 APPLICATIONS EACH NARE PRN (13:00)
[2017-10-05] MEDS ORDERED: LACTATED RINGER'S 1000 ML IV PRN (13:00)
[2017-10-05] MEDS ORDERED: DO NOT ADM ANY ANTICOAGULANT DRUGS PRN (13:00)
[2017-10-05] MEDS ORDERED: LEVOFLOXACIN 500 MG PREMIX INJ 100 ML IV ONE (15:04)
--- NOTE | 2017-10-05 15:28 | PD.RAD ---
Post Procedure Progress Note Pre Procedure Diagnosis: (1) Pancreatic cancer (2) Obstructive jaundice (3) Pancreatic adenocarcinoma Post Procedure Diagnosis: (1) Pancreatic adenocarcinoma (2) Obstructive jaundice (3) Pancreatic cancer Procedure Date: October 05, 2017 Supervising Radiologist: Brant Escamilla Estimated blood loss: 3cc Anesthesia: General, Local Plan of Activity Patient to Unit: PACU Patient Condition: Poor Additional Comments: PTHD completed without difficulty. 10 F internal /external biliary drain placed. Complete distal cbd obstruction Full dictated report to follow See PACS Report for procedural detail/treatment Brant Escamilla MD October 05, 2017 15:28
[2017-10-05] MEDS ORDERED: IOHEXOL 350 MG/ML 50 ML BTL (for RAD DIAG) OTHER ONE ×2 (15:43→16:56)
--- NOTE | 2017-10-05 16:02 | RADRPT ---
EXAM DATE/TIME: 10/05/2017 14:56 [facility] COMPARISON: INVASIVE RADIOLOGY CONSULT, September 18, 2017, 0:00. INDICATIONS : Patient with history of pancreatic cancer in need of biliary drain placement due to obstruction. MEDICAL HISTORY : Pancreatic adenocarcinoma COPD Hypothyroidism Herniated disc SURGICAL HISTORY : Melanoma removal Pancreatic biopsy ENCOUNTER: Initial ACUITY: 2 days PAIN SCORE: 0/10 LOCATION: Unresponsive FLUORO TIME: 7.2 minutes IMAGE SERIES: 3 CONTRAST: 10 cc Omnipaque (iohexol) 350 DEVICE(S): 1.) 10 [place] biliary drain Flexima RO Firm Anesthesia and pain control was provided by the Anesthesia department. PROCEDURE : 1. Ultrasound guided puncture of the biliary tree. 2. Percutaneous antegrade cholangiogram. 3. Biliary stent placement. 4. Conscious sedation with continuous EKG and oximetry monitoring. Clinical history: The patient is a 61-year-old with known pancreatic carcinoma. Recent CT imaging demonstrated biliary obstruction. ERCP was attempted without success. The patient presents for percutaneous biliary draina ge. The risks, benefits and alternatives to the procedure were explained explained to the patient's , verbal and written consent was obtained. The site was prepped in sterile fashion. Full sterile alec hnique was used, including cap, mask, sterile gloves and gown and a large sterile sheet. Hand hygien e and 2% chlorhexidine and/or betadine/alcohol prep was utilized per protocol for cutaneous antisepsi s. Sterile gel and sterile probe cover were utilized for ultrasound guidance. The skin and subcutan eous tissues were infiltrated with local anesthetic solution. With ultrasound and fluoroscopic guidance the biliary tree was punctured with a 22 gauge Chiba needle and the biliary tree was opacified. A 0.035 angle Glidewire and Berenstein catheter were advanced th rough the biliary system down to the level of the obstruction. This area was crossed. The Berenstein catheter was placed in the duodenum. A Nitrex wire was advanced through the 4 [place] catheter. A 10 F rench internal/external drain was advanced over the wire without difficulty and placed within the duo denum. There was immediate return of copious amounts of thick, dark bile. The procedure was performed under general anesthesia. The patient tolerated the procedure well and th ere were no complications. The patient was sent to post anesthesia recovery in stable condition. CONCLUSION: Uncomplicated biliary stent placement as above. Brant Escamilla MD on October 05, 2017 at 15:57 Board Certified Radiologist. This report was verified electronically.
[2017-10-05] MEDS ORDERED: *ENALAPRILAT 1.25 MG/ML VIAL PERIprocedural Use ONLY ONE (16:11)
[2017-10-05] MEDS ORDERED: *HYDROmorphone PF 0.5 MG/0.5 ML PERIprocedure ONLY ONE ×2 (16:17→16:32)
[2017-10-05] MEDS ORDERED: SINCALIDE 5 MCG/5 ML VIAL IV PUSH ONE (16:57)
[2017-10-05] MEDS ORDERED: GLUCAGON 1 MG/ML VIAL IV PUSH ONE (17:00)
[2017-10-05 20:00] VITALS: BP 141/71; PULSE 57; RESP 21; TEMP 97.7; O2SAT 96
[2017-10-06] VITALS (9 sets, daily range): BP systolic 152–190; BP diastolic 81–98; PULSE 55–66; RESP 17–20; TEMP 97.6–98.6; O2SAT 97–100
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
[2017-10-06] MEDS: MORPHINE SULFATE 4 MG/ML INJ IV PUSH PRN (01:13)
[2017-10-06] MEDS: NS + KCL 20 MEQ INJ 1,000 ML IV SCH ×2 (01:15→18:20)
[2017-10-06] MEDS: HYDROmorphone HCL PF 2 MG/ML VIAL IV PUSH PRN (02:44)
[2017-10-06] MEDS ORDERED: HYDROmorphone HCL PF 0.5 MG/0.5 ML SYRINGE IV PUSH PRN ×2 (02:45→10:45)
[2017-10-06] MEDS ORDERED: HYDROmorphone HCL PF 0.5 MG/0.5 ML SYRINGE IV PRN (03:00)
--- NOTE | 2017-10-06 03:00 | HHI.FPPN ---
Addendum to progress note ADDENDUM Reason for addendum: Additonal documentation Additional information Yohan Vieyra and Vladislav pages at 01:47AM due to nursing report that pt is in pain and requesting Dr at bedside. Drs went by to see Mr Monserrat who reports that IV Morphine prescribed causes a stomach ache and he prefers not to have IV morphine. States that Dilaudid works well but he is in pain. Pt holding a pillow across his abdomen and intermittently moaning in pain. Vital Signs Date Time Temp Pulse Resp B/P (MAP) Pulse Ox O2 Delivery O2 Flow Rate FiO2 10/06/17 00:00 98.1 58 20 156/81 (106) 100 10/05/17 17:00 Nasal Cannula 2 10/05/17 09:13 21 GEN: Disheveled elderly male lying in bed in NAD but with intermittent moaning in pain. HEENT: NCAT. CV: RRR with no murmur, rub or gallop. RESP: coarse breath sounds on right side; left side clear to auscultation. ABDOMEN: soft, TTP in epigastrum, nondistended, no guarding or rebound A/P: 61YO male reporting pain in epigastrum from obstructive lesion in pancreas -Discontinue Morphine IV -Dilaudid 0.5mg IV q4h PRN pain 6-10 -Dilaudid 0.5mg IV q4h PRN breakthru pain (with instructions not to exceed 1mg dilaudid q4h) Pt seen and dw Zackery Rivera MD R1 October 06, 2017 03:00
[2017-10-06] MEDS: LEVOTHYROXINE SODIUM 50 MCG TAB PO SCH (06:29)
[2017-10-06 07:05] LABS: AUTOMATED NEUTROPHIL # 7.7 TH/MM3 (1.8-7.7); BASOPHIL # 0.1 TH/MM3 (0-0.2); BASOPHIL % 0.7 % (0.0-2.0); EOSINOPHIL % 0.2 % (0.0-4.0); HEMOGLOBIN 11.6 GM/DL (13.0-17.0); LYMPH % 11.6 % (9.0-44.0); LYMPHOCYTE # 1.1 TH/MM3 (1.0-4.8); MEAN CORPUSCULAR HEMOGLOBIN 28.3 PG (27.0-34.0); MEAN CORPUSCULAR HGB CONC 34.1 % (32.0-36.0); MEAN PLATELET VOLUME 9.7 FL (7.0-11.0); MONO % 5.9 % (0.0-8.0); MONOCYTE # 0.6 TH/MM3 (0-0.9); NEUT % 81.6 % (16.0-70.0); PLATELET COUNT 275 TH/MM3 (150-450); RED CELL DISTRIBUTION WIDTH 15.5 % (11.6-17.2); WHITE BLOOD COUNT 9.5 TH/MM3 (4.0-11.0)
[2017-10-06 07:37] LABS: ALBUMIN 2.3 GM/DL (3.4-5.0); AST (GOT) 90 U/L (15-37); BLOOD UREA NITROGEN 7 MG/DL (7-18); CALCIUM 8.6 MG/DL (8.5-10.1); CHLORIDE 102 MEQ/L (98-107); GLOMERULAR FILTRATION RATE 138 ML/MIN (>89); GLUCOSE,RANDOM 127 MG/DL (74-106); SODIUM (NA) 137 MEQ/L (136-145)
[2017-10-06 07:41] LABS: ALKALINE PHOSPHATASE 782 U/L (45-117); ALT (GPT) 150 U/L (12-78); TOTAL BILIRUBIN ADULT 9.3 MG/DL (0.2-1.0)
[2017-10-06] MEDS: FAMOTIDINE 20 MG TAB PO SCH ×2 (08:54→21:17)
[2017-10-06] MEDS: DOCUSATE SODIUM 50 MG/SENNA 8.6 MG TAB PO SCH ×2 (08:55→21:17)
[2017-10-06] MEDS: SODIUM CHLORIDE 0.9% FLUSH 10 ML FLUSH IV FLUSH SCH ×2 (08:55→21:00)
[2017-10-06] MEDS ORDERED: METHADONE HCL 10 MG TAB PO SCH (09:00)
--- NOTE | 2017-10-06 10:18 | HHI.FPPN ---
Subjective Remarks Patient seen and examined this morning. Patient with worsening abdominal pain overnight stated the IV morphine was not helping. This morning, he reports continued abdominal pain. States the Dilaudid helps some. Otherwise, denies any other complaints. Denies any fever/chills, chest pain, shortness of breath , leg pain. Endorses chronic back pain. (Ty Baker MD R2) Objective Vitals Vital Signs Date Time Temp Pulse Resp B/P (MAP) Pulse Ox O2 Delivery O2 Flow Rate FiO2 10/06/17 08:17 97.6 56 18 183/92 (122) 99 10/06/17 05:31 98 10/06/17 04:00 98.0 58 20 152/81 (104) 100 10/06/17 00:00 98.1 58 20 156/81 (106) 100 10/05/17 23:59 20 10/05/17 22:24 18 10/05/17 20:00 97.7 57 21 141/71 (94) 96 10/05/17 17:00 97.7 59 20 157/79 (105) 100 Nasal Cannula 2 10/05/17 16:45 61 20 155/79 (104) 100 Nasal Cannula 2 10/05/17 16:30 62 20 166/79 (108) 100 Nasal Cannula 2 10/05/17 16:15 58 24 187/82 (117) 100 Nasal Cannula 2 10/05/17 16:00 58 24 179/85 (116) 100 Nasal Cannula 3 10/05/17 15:50 58 24 183/88 (119) 100 Nasal Cannula 3 10/05/17 15:45 54 21 177/96 (123) 100 Nasal Cannula 3 10/05/17 15:42 97.5 59 20 193/96 (128) 96 Nasal Cannula 3 10/05/17 14:05 57 14 114/67 (83) 100 Nasal Cannula 2 10/05/17 13:45 58 14 114/66 (82) 100 Nasal Cannula 2 10/05/17 13:30 59 14 129/67 (87) 100 Nasal Cannula 2 10/05/17 13:15 53 14 118/62 (80) 100 Nasal Cannula 2 10/05/17 12:58 98.0 59 14 133/64 (87) 100 Nasal Cannula 2 I/O 10/05/17 10/05/17 10/05/17 10/06/175/18 5/5/18 07:00 15:00 23:00 07:00 15:00 23:00 Intake Total 400 ml 1000 ml 1200 ml Output Total 300 ml 60 ml 1380 ml Balance -300 ml 400 ml 940 ml -180 ml Intake Oral 1200 ml IV Total 400 ml Other 1000 ml Output Urine Total 300 ml 1200 ml Drainage Total 60 ml 180 ml (Ty Baker MD R2) Result Diagram: 10/06/1763710/06/17637 Objective Remarks GENERAL: This is a cachectic, notably jaundiced male laying in bed in some distress due to pain CARDIOVASCULAR: Regular rate and rhythm without murmurs, gallops, or rubs. RESPIRATORY: Clear to auscultation. Breath sounds equal bilaterally. No wheezes , rales, or rhonchi. GASTROINTESTINAL: Abdomen soft, nondistended. Generalized tenderness to palpation. No guarding. MUSCULOSKELETAL: Extremities without clubbing, cyanosis, or edema. NEUROLOGICAL: Awake and alert. Motor and sensory grossly within normal limits. Normal speech. (Ty Baker MD R2) A/P Assessment and Plan 61-year-old male with history of locally advanced pancreatic carcinoma, COPD, hypothyroidism presenting to the ED after being sent by his oncologist Dr. Lopez with concerns for obstructive jaundice. Said progressively worsening abdominal pain, discoloration of the skin, dark-colored urine, white stools. CT scan on admission showing ill-defined mass in the head of the pancreas with associated dilation of the distal pancreatic duct, dilation of the common hepatic duct and intrahepatic biliary ducts. GI and oncology consult. Discharge Planning Pending pain control and management of his obstructive jaundice (Ty Baker MD R2) Attending Attestation Patient seen and examined. Case reviewed and discussed with the resident team. Agree with plan of care as discussed with me and documented in the resident note. (Teri Ellis MD) Problem List: (1) Obstructive jaundice ICD Codes: K83.8 - Other specified diseases of biliary tract Status: Acute Plan: GI consulted-ERCP unable to be placed IR consulted for biliary drain placement. POD#1 Continue home methadone and dilaudid PRN pain See pancreatic adenocarcinoma below (2) Pancreatic adenocarcinoma ICD Codes: C25.9 - Malignant neoplasm of pancreas, unspecified Plan: Patient with a known history of pancreatic adenocarcinoma, diagnosed in June 2017 Consulting oncology, Dr. Gore -Systemic chemotherapy in outpatient setting See plan for obstructive jaundice above (3) Hypothyroidism ICD Codes: E03.9 - Hypothyroidism, unspecified Plan: Known history of hypothyroidism Continue home levothyroxine (4) Anemia ICD Codes: D64.9 - Anemia, unspecified Status: Chronic Plan: Hemoglobin of 11.2 on admission Appears to be stable compared to recent hospitalizations Normal MCV, likely secondary to anemia of chronic disease We will continue to monitor (5) Hypertension ICD Codes: I10 - Essential (primary) hypertension Status: Resolved Plan: Trending up. Likely secondary to pain IV Vasotec available as needed for systolic blood pressures greater than 170, diastolic pressures greater than 100 (6) FEN Plan: Fluids: Maintenance fluids We will replace electrolytes as needed CLD, may advance if tolerated SCDs for DVT (yT Baker MD R2) Problem Qualifiers (1) Anemia: Qualified Codes: D64.9 - Anemia, unspecified Ty Baker MD R2 October 06, 2017 10:18 Teri Ellis MD October 06, 2017 12:45
--- NOTE | 2017-10-06 11:11 | PD.ONC.PN ---
Subjective Subjective Remarks Afebrile Pt reports the methadone is helping the pain overall, but he continues to have intense pain in his abdomen after around 3 hours or so Generalized abdominal pain not improved with drain insertion Objective Data Date Time Temp Pulse Resp B/P (MAP) Pulse Ox O2 Delivery O2 Flow Rate FiO2 10/06/17 08:17 97.6 56 18 183/92 (122) 99 10/06/17 05:31 98 10/06/17 04:00 98.0 58 20 152/81 (104) 100 10/06/17 00:00 98.1 58 20 156/81 (106) 100 10/05/17 23:59 20 10/05/17 22:24 18 10/05/17 20:00 97.7 57 21 141/71 (94) 96 10/05/17 17:00 97.7 59 20 157/79 (105) 100 Nasal Cannula 2 10/05/17 16:45 61 20 155/79 (104) 100 Nasal Cannula 2 10/05/17 16:30 62 20 166/79 (108) 100 Nasal Cannula 2 10/05/17 16:15 58 24 187/82 (117) 100 Nasal Cannula 2 10/05/17 16:00 58 24 179/85 (116) 100 Nasal Cannula 3 10/05/17 15:50 58 24 183/88 (119) 100 Nasal Cannula 3 10/05/17 15:45 54 21 177/96 (123) 100 Nasal Cannula 3 10/05/17 15:42 97.5 59 20 193/96 (128) 96 Nasal Cannula 3 10/05/17 14:05 57 14 114/67 (83) 100 Nasal Cannula 2 10/05/17 13:45 58 14 114/66 (82) 100 Nasal Cannula 2 10/05/17 13:30 59 14 129/67 (87) 100 Nasal Cannula 2 10/05/17 13:15 53 14 118/62 (80) 100 Nasal Cannula 2 10/05/17 12:58 98.0 59 14 133/64 (87) 100 Nasal Cannula 2 10/06/17 10/06/17 10/06/17 07:00 15:00 23:00 Intake Total 1200 ml Output Total 1380 ml Balance -180 ml Result Diagram: 10/06/1738 10/06/1738 Laboratory Results Laboratory Tests Test 10/06/17 06:38 White Blood Count 9.5 TH/MM3 Red Blood Count 4.10 MIL/MM3 Hemoglobin 11.6 GM/DL Hematocrit 34.0 % Mean Corpuscular Volume 83.0 FL Mean Corpuscular Hemoglobin 28.3 PG Mean Corpuscular Hemoglobin Concent 34.1 % Red Cell Distribution Width 15.5 % Platelet Count 275 TH/MM3 Mean Platelet Volume 9.7 FL Neutrophils (%) (Auto) 81.6 % Lymphocytes (%) (Auto) 11.6 % Monocytes (%) (Auto) 5.9 % Eosinophils (%) (Auto) 0.2 % Basophils (%) (Auto) 0.7 % Neutrophils # (Auto) 7.7 TH/MM3 Lymphocytes # (Auto) 1.1 TH/MM3 Monocytes # (Auto) 0.6 TH/MM3 Eosinophils # (Auto) 0.0 TH/MM3 Basophils # (Auto) 0.1 TH/MM3 CBC Comment DIFF FINAL Differential Comment Blood Urea Nitrogen 7 MG/DL Creatinine 0.60 MG/DL Random Glucose 127 MG/DL Total Protein 6.0 GM/DL Albumin 2.3 GM/DL Calcium Level 8.6 MG/DL Alkaline Phosphatase 782 U/L Aspartate Amino Transf (AST/SGOT) 90 U/L Alanine Aminotransferase (ALT/SGPT) 150 U/L Total Bilirubin 9.3 MG/DL Sodium Level 137 MEQ/L Potassium Level 3.6 MEQ/L Chloride Level 102 MEQ/L Carbon Dioxide Level 27.0 MEQ/L Anion Gap 8 MEQ/L Estimat Glomerular Filtration Rate 138 ML/MIN Administered Medications Medications (Trade) Dose Ordered Sig/Nikia Route PRN Reason Start Time Stop Time Status Last Admin Dose Admin Sodium Chloride (NS Flush) 2 ml BID IV FLUSH 10/04/17 21:00 10/06/17 08:55 Senna/Docusate Sodium (Alysha-Colace) 1 tab BID PO 10/05/17 09:00 10/06/17 08:55 Levothyroxine Sodium (Synthroid) 50 mcg DAILY@0600 PO 10/05/17 06:00 10/06/17 06:29 Famotidine (Pepcid) 20 mg BID PO 10/04/17 21:00 10/06/17 08:54 Potassium Chloride/Sodium Chloride 1,000 ml @ 100 mls/hr Q10H IV 10/05/17 12:00 10/06/17 01:15 Hydromorphone HCl (Dilaudid Pf Inj) 1 mg Q4H PRN IV PUSH BREAKTHROUGH PAIN 10/06/17 10:45 10/06/17 08:54 Methadone HCl (Dolophine) 20 mg Q12HR PO 10/06/17 09:00 10/06/17 08:55 Objective Remarks GENERAL: Older male resting in bed. He is wincing and appears painful. SKIN: Warm and dry. HEAD: Normocephalic. EYES: No injection or drainage. NECK: Supple, trachea midline. CARDIOVASCULAR: Regular rate and rhythm without murmurs. RESPIRATORY: Breath sounds equal bilaterally. No accessory muscle use. GASTROINTESTINAL: Biliary drain inserted to right abdomen EXTREMITIES: No cyanosis, or edema. MUSCULOSKELETAL: Generalized weakness NEUROLOGICAL: No obvious focal deficit. Awake, alert, and oriented x3. Assessment/Plan Assessment 61-year-old male with unresectable pancreatic cancer admitted with obstructive jaundice Plan As the patient has a very poor social situation it is guarded as to whether he will be able to seek treatment for his pancreatic cancer. I agree with palliative consult however this will be difficult because as soon as I mentioned that they will be able to help with his pain meds the patient's spouse became quite concerned that this was hospice. We did discuss that the plan is systemic chemotherapy once he is better from his acute obstruction and can be discharged. In terms of his pain, I will increase the frequency of Dilaudid to every 3 hours. Attending Statement The exam, history, and the medical decision-making described in the above note were completed with the assistance of the mid-level provider. I reviewed and agree with the findings presented. I attest that I had a [id number] encounter with the patient on the same day, and personally performed and documented my assessment and findings in the medical record. has severe upper abd pain and tender in epigastric area from his tumor. He has a high risk of DVT/PE due to cancer of pancreas. Will increase Methadone to every 8 hours and begin Lovenox. On sunday would consider consult for celiac axis block as it will be very difficult to control his pain. Angeline Patterson October 06, 2017 11:11 Twin Cade MD October 06, 2017 15:28
[2017-10-06] MEDS: HYDROmorphone HCL PF 0.5 MG/0.5 ML SYRINGE IV PUSH PRN ×4 (12:24→21:17)
--- NOTE | 2017-10-06 14:19 | HHI.GIFU ---
Subjective Remarks Pt resting in bed Complaining of generalized chronic abdominal pain Good output from PTHD Denies nausea, vomiting Tolerating clear liquid diet (Zakiya Babb) Objective Vitals I&O Vital Signs Date Time Temp Pulse Resp B/P (MAP) Pulse Ox O2 Delivery O2 Flow Rate FiO2 10/06/17 13:04 98 21 10/06/17 12:08 97.6 55 17 183/92 (122) 100 10/06/17 08:17 97.6 56 18 183/92 (122) 99 10/06/17 05:31 98 10/06/17 04:00 98.0 58 20 152/81 (104) 100 10/06/17 00:00 98.1 58 20 156/81 (106) 100 10/05/17 23:59 20 10/05/17 22:24 18 10/05/17 20:00 97.7 57 21 141/71 (94) 96 10/05/17 17:00 97.7 59 20 157/79 (105) 100 Nasal Cannula 2 10/05/17 16:45 61 20 155/79 (104) 100 Nasal Cannula 2 10/05/17 16:30 62 20 166/79 (108) 100 Nasal Cannula 2 10/05/17 16:15 58 24 187/82 (117) 100 Nasal Cannula 2 10/05/17 16:00 58 24 179/85 (116) 100 Nasal Cannula 3 10/05/17 15:50 58 24 183/88 (119) 100 Nasal Cannula 3 10/05/17 15:45 54 21 177/96 (123) 100 Nasal Cannula 3 10/05/17 15:42 97.5 59 20 193/96 (128) 96 Nasal Cannula 3 I/O 10/05/17 10/05/17 10/05/17 10/06/17 10/06/17 10/06/17 07:00 15:00 23:00 07:00 15:00 23:00 Intake Total 400 ml 1000 ml 1200 ml Output Total 300 ml 60 ml 1380 ml Balance -300 ml 400 ml 940 ml -180 ml Intake Oral 1200 ml IV Total 400 ml Other 1000 ml Output Urine Total 300 ml 1200 ml Drainage Total 60 ml 180 ml Laboratory Laboratory Tests Test 10/06/17 06:38 White Blood Count 9.5 Red Blood Count 4.10 Hemoglobin 11.6 Hematocrit 34.0 Mean Corpuscular Volume 83.0 Mean Corpuscular Hemoglobin 28.3 Mean Corpuscular Hemoglobin Concent 34.1 Red Cell Distribution Width 15.5 Platelet Count 275 Mean Platelet Volume 9.7 Neutrophils (%) (Auto) 81.6 Lymphocytes (%) (Auto) 11.6 Monocytes (%) (Auto) 5.9 Eosinophils (%) (Auto) 0.2 Basophils (%) (Auto) 0.7 Neutrophils # (Auto) 7.7 Lymphocytes # (Auto) 1.1 Monocytes # (Auto) 0.6 Eosinophils # (Auto) 0.0 Basophils # (Auto) 0.1 CBC Comment DIFF FINAL Differential Comment Blood Urea Nitrogen 7 Creatinine 0.60 Random Glucose 127 Total Protein 6.0 Albumin 2.3 Calcium Level 8.6 Alkaline Phosphatase 782 Aspartate Amino Transf (AST/SGOT) 90 Alanine Aminotransferase (ALT/SGPT) 150 Total Bilirubin 9.3 Sodium Level 137 Potassium Level 3.6 Chloride Level 102 Carbon Dioxide Level 27.0 Anion Gap 8 Estimat Glomerular Filtration Rate 138 Imaging Last Impressions Bile Duct Drainage 10/05/17 0000 Signed Impressions: Service Date/Time: Thursday, October 05, 2017 14:56 - CONCLUSION: Uncomplicated biliary stent placement as above. Brant Escamilla MD Abdomen/Pelvis CT 10/04/17 1107 Signed Impressions: Service Date/Time: October 14:03 - CONCLUSION: Findings suggest ill-defined mass in the head of the pancreas measuring 2.5 cm with associated dilation of the distal pancreatic duct, more dilation of the common hepatic duct and intrahepatic biliary ductal dilatation. Sebastian Suggs MD Physical Exam HEENT: Normocephalic; atraumatic;(+) icterus CHEST: Even/unlabored ABDOMEN: Cachectic, soft, diffusely tender, bowel sounds active, PTHD to RUQ with drainage in collection bag EXTREMITIES: No clubbing, cyanosis, or edema. SKIN: (+) jaundice PRESS SETTER: No focal deficits; alert and oriented times three. (Zakiya Babb) Assessment and Plan Plan Assessment: - Pancreatic mass, biopsy done at confirmed adenocarcinoma CT abdomen and pelvis W IV contrast (10/04) --> Findings suggest ill-defined mass in the head of the pancreas measuring 2.5 cm with associated dilation of the distal pancreatic duct, more dilation of the common hepatic duct and intrahepatic biliary ductal dilatation. Labs consistent with obstruction: AST-152 ALT-183 Alk phos-[id number] T bili-13 S/P ERCP (10/05) --> Esophagus normal. Stomach normal. Duodenum significant edema and prominent folds with external compression unable to identify the ampulla despite using Kinevac and glucagon S/P PTHD placed by IR 10F internal/external biliary drain (10/06) Drain with good output. LFTs and total bili trending down some today. Pt tolerating clear liquids. Plan: Advance to full liquids Can continue to advance diet as tolerated Ensure supplements Monitor LFTs Supportive care GI will sign off, please reconsult as needed Have pt follow up with GI after DC Pt has been seen and examined by myself and Dr. Gallo and this note is written on her behalf (Zakiya Babb) Physician Comments agree with above (Debby Gallo MD) Zakiya Babb October 06, 2017 14:19 Debby Gallo MD October 06, 2017 20:12
[2017-10-06] MEDS: ENOXAPARIN SODIUM 40 MG/0.4 ML SYRINGE SQ SCH (18:20)
[2017-10-06] MEDS: ENALAPRILAT 1.25 MG/ML VIAL IV PUSH PRN (18:50)
[2017-10-06] MEDS: METHADONE HCL 10 MG TAB PO SCH (22:29)
[2017-10-07] MEDS: HYDROmorphone HCL PF 0.5 MG/0.5 ML SYRINGE IV PUSH PRN ×7 (00:28→21:44)
[2017-10-07 03:03] VITALS: BP 172/90; PULSE 69; RESP 21; TEMP 98.5; O2SAT 99
[2017-10-07] MEDS: ENALAPRILAT 1.25 MG/ML VIAL IV PUSH PRN (03:15)
[2017-10-07] MEDS: NS + KCL 20 MEQ INJ 1,000 ML IV SCH ×2 (03:25→14:08)
[2017-10-07 05:37] LABS: HEMATOCRIT 34.7 % (39.0-51.0); HEMOGLOBIN 11.7 GM/DL (13.0-17.0); MEAN CELL VOLUME 82.9 FL (80.0-100.0); MEAN CORPUSCULAR HEMOGLOBIN 27.9 PG (27.0-34.0); MEAN CORPUSCULAR HGB CONC 33.7 % (32.0-36.0); MEAN PLATELET VOLUME 9.7 FL (7.0-11.0); PLATELET COUNT 248 TH/MM3 (150-450); RED BLOOD COUNT 4.19 MIL/MM3 (4.50-5.90); RED CELL DISTRIBUTION WIDTH 15.1 % (11.6-17.2); WHITE BLOOD COUNT 13.2 TH/MM3 (4.0-11.0)
[2017-10-07 05:58] LABS: ALBUMIN 2.5 GM/DL (3.4-5.0); AST (GOT) 55 U/L (15-37); BICARBONATE 29.5 MEQ/L (21.0-32.0); BLOOD UREA NITROGEN 7 MG/DL (7-18); CALCIUM 8.5 MG/DL (8.5-10.1); CHLORIDE 96 MEQ/L (98-107); CREATININE 0.46 MG/DL (0.60-1.30); GLOMERULAR FILTRATION RATE 187 ML/MIN (>89); GLUCOSE,RANDOM 113 MG/DL (74-106); SODIUM (NA) 135 MEQ/L (136-145)
[2017-10-07] MEDS: METHADONE HCL 10 MG TAB PO SCH ×4 (06:00→22:22)
[2017-10-07 06:02] LABS: ALKALINE PHOSPHATASE 645 U/L (45-117); ALT (GPT) 115 U/L (12-78); TOTAL BILIRUBIN ADULT 8.5 MG/DL (0.2-1.0); TOTAL PROTEIN 6.4 GM/DL (6.4-8.2)
[2017-10-07] MEDS: LEVOTHYROXINE SODIUM 50 MCG TAB PO SCH (06:41)
[2017-10-07 08:12] VITALS: BP 159/86; PULSE 70; RESP 18; TEMP 97.7; O2SAT 99
[2017-10-07] MEDS: FAMOTIDINE 20 MG TAB PO SCH ×2 (09:22→21:46)
[2017-10-07] MEDS: DOCUSATE SODIUM 50 MG/SENNA 8.6 MG TAB PO SCH ×2 (09:23→21:46)
[2017-10-07] MEDS: SODIUM CHLORIDE 0.9% FLUSH 10 ML FLUSH IV FLUSH SCH ×2 (09:23→21:45)
--- NOTE | 2017-10-07 10:17 | HHI.FPPN ---
Subjective Remarks No acute events overnight. Patient refused methadone this morning as he had some abdominal discomfort yesterday when he took it on empty stomach. States the Dilaudid helps with his pain. Currently denying any nausea or vomiting, chest pain or shortness of breath. States his appetite is a little better this morning he was able to eat. No complications with the biliary drain. Objective Vitals Vital Signs Date Time Temp Pulse Resp B/P (MAP) Pulse Ox O2 Delivery O2 Flow Rate FiO2 10/07/17 08:12 97.7 70 18 159/86 (110) 99 10/07/17 03:03 98.5 69 21 172/90 (117) 99 10/06/17 23:04 98.6 65 19 178/96 (123) 97 10/06/17 21:47 18 10/06/17 20:04 98.0 66 18 170/98 (122) 98 10/06/17 16:35 98.5 59 18 190/90 (123) 99 10/06/17 13:04 98 21 10/06/17 12:08 97.6 55 17 183/92 (122) 100 I/O 10/06/17 10/06/17 10/06/17 10/07/17 10/07/17 10/07/17 07:00 15:00 23:00 07:00 15:00 23:00 Intake Total 2200 ml 900 ml 1360 ml Output Total 1380 ml 2185 ml 1650 ml Balance 820 ml -1285 ml -290 ml Intake Oral 1200 ml 900 ml 360 ml IV Total 1000 ml 1000 ml Output Urine Total 1200 ml 1500 ml 1650 ml Drainage Total 180 ml 685 ml # Bowel Movements 0 0 Result Diagram: 10/07/17 0510 10/07/17 0510 Objective Remarks GENERAL: This is a cachectic, notably jaundiced male laying in bed in no acute distress CARDIOVASCULAR: Regular rate and rhythm without murmurs, gallops, or rubs. RESPIRATORY: Clear to auscultation. Breath sounds equal bilaterally. No wheezes , rales, or rhonchi. GASTROINTESTINAL: Abdomen soft, nondistended. Generalized tenderness to palpation. No guarding. Biliary drain in place with overlying bandage clean dry and intact. MUSCULOSKELETAL: Extremities without clubbing, cyanosis, or edema. NEUROLOGICAL: Awake and alert. Motor and sensory grossly within normal limits. Normal speech. A/P Assessment and Plan 61-year-old male with history of locally advanced pancreatic carcinoma, COPD, hypothyroidism presenting to the ED after being sent by his oncologist Dr. Lopez with concerns for obstructive jaundice. Said progressively worsening abdominal pain, discoloration of the skin, dark-colored urine, white stools. CT scan on admission showing ill-defined mass in the head of the pancreas with associated dilation of the distal pancreatic duct, dilation of the common hepatic duct and intrahepatic biliary ducts. GI and oncology consult. ERCP with stent placement was attempted but unsuccessful. Interventional radiology was consulted and placed a biliary drain on 10/05. Discharge Planning Pending pain control and management of his obstructive jaundice Problem List: (1) Obstructive jaundice ICD Codes: K83.8 - Other specified diseases of biliary tract Status: Acute Plan: GI consulted-ERCP unable to be placed IR consulted for biliary drain placement. POD#2 Continue home methadone and dilaudid PRN pain. We will try to time methadone for after meals Liver enzymes trending down postoperatively See pancreatic adenocarcinoma below (2) Pancreatic adenocarcinoma ICD Codes: C25.9 - Malignant neoplasm of pancreas, unspecified Plan: Patient with a known history of pancreatic adenocarcinoma, diagnosed in June 2017 Consulting oncology, Dr. Gore -Systemic chemotherapy in outpatient setting Palliative care consult on 10/06 Oncology is considering celiac axis block for pain control See plan for obstructive jaundice above (3) Hypothyroidism ICD Codes: E03.9 - Hypothyroidism, unspecified Plan: Known history of hypothyroidism Continue home levothyroxine (4) Anemia ICD Codes: D64.9 - Anemia, unspecified Status: Chronic Plan: Hemoglobin of 11.2 on admission and has remained stable Appears to be stable compared to recent hospitalizations Normal MCV, likely secondary to anemia of chronic disease We will continue to monitor (5) Hypertension ICD Codes: I10 - Essential (primary) hypertension Status: Resolved Plan: Trending up. Likely secondary to pain Adding Amlodipine 2.5mg daily IV Vasotec available as needed for systolic blood pressures greater than 170, diastolic pressures greater than 100 (6) FEN Plan: Fluids: Maintenance fluids We will replace electrolytes as needed FLD, may advance if tolerated Lovenox for DVT prophylaxis Problem Qualifiers (1) Anemia: Qualified Codes: D64.9 - Anemia, unspecified Gerber Vance MD R1 October 07, 2017 10:17
[2017-10-07] MEDS ORDERED: PILL SPLITTER OTHER PRN (11:30)
[2017-10-07 12:21] VITALS: BP 156/89; PULSE 67; RESP 17; TEMP 98.2; O2SAT 99
[2017-10-07] MEDS: amLODIPine BESYLATE 5 MG TAB PO SCH (12:25)
[2017-10-07 13:33] VITALS: BP 147/85; PULSE 72; RESP 18; O2SAT 100
[2017-10-07] MEDS: ENOXAPARIN SODIUM 40 MG/0.4 ML SYRINGE SQ SCH (13:33)
[2017-10-07 17:04] VITALS: BP 161/88; PULSE 57; RESP 20; TEMP 98.4; O2SAT 100
[2017-10-07 20:27] VITALS: BP 139/88; PULSE 67; RESP 18; TEMP 99.1; O2SAT 99
[2017-10-08] VITALS (9 sets, daily range): BP systolic 117–210; BP diastolic 64–113; PULSE 62–77; RESP 16–21; TEMP 97.6–99; O2SAT 97–100
[2017-10-08] MEDS: NS + KCL 20 MEQ INJ 1,000 ML IV SCH ×3 (00:06→20:37)
[2017-10-08] MEDS: HYDROmorphone HCL PF 0.5 MG/0.5 ML SYRINGE IV PUSH PRN ×6 (00:58→14:52)
[2017-10-08] MEDS: SODIUM CHLORIDE 0.9% FLUSH 10 ML FLUSH IV FLUSH PRN ×4 (00:58→04:39)
[2017-10-08] MEDS ORDERED: HYDROmorphone HCL PF 0.5 MG/0.5 ML SYRINGE IV PUSH ONE ×2 (01:45→04:30)
[2017-10-08 04:04] LABS: AUTOMATED NEUTROPHIL # 7.4 TH/MM3 (1.8-7.7); BASOPHIL % 0.2 % (0.0-2.0); EOSINOPHIL # 0.2 TH/MM3 (0-0.4); EOSINOPHIL % 1.9 % (0.0-4.0); HEMATOCRIT 29.8 % (39.0-51.0); HEMOGLOBIN 10.3 GM/DL (13.0-17.0); LYMPH % 16.5 % (9.0-44.0); LYMPHOCYTE # 1.8 TH/MM3 (1.0-4.8); MEAN CELL VOLUME 83.6 FL (80.0-100.0); MEAN CORPUSCULAR HGB CONC 34.7 % (32.0-36.0); MEAN PLATELET VOLUME 9.8 FL (7.0-11.0); MONO % 11.5 % (0.0-8.0); MONOCYTE # 1.2 TH/MM3 (0-0.9); NEUT % 69.9 % (16.0-70.0); PLATELET COUNT 174 TH/MM3 (150-450); RED BLOOD COUNT 3.57 MIL/MM3 (4.50-5.90); RED CELL DISTRIBUTION WIDTH 14.7 % (11.6-17.2); WHITE BLOOD COUNT 10.6 TH/MM3 (4.0-11.0)
[2017-10-08 04:30] LABS: ALBUMIN 2.3 GM/DL (3.4-5.0); ALT (GPT) 88 U/L (12-78); AST (GOT) 38 U/L (15-37); BICARBONATE 30.1 MEQ/L (21.0-32.0); BLOOD UREA NITROGEN 8 MG/DL (7-18); CALCIUM 8.3 MG/DL (8.5-10.1); CHLORIDE 100 MEQ/L (98-107); CREATININE 0.44 MG/DL (0.60-1.30); GLOMERULAR FILTRATION RATE 197 ML/MIN (>89); GLUCOSE,RANDOM 92 MG/DL (74-106); SODIUM (NA) 138 MEQ/L (136-145)
[2017-10-08 04:32] LABS: ALKALINE PHOSPHATASE 469 U/L (45-117); TOTAL BILIRUBIN ADULT 6.5 MG/DL (0.2-1.0)
[2017-10-08] MEDS: LEVOTHYROXINE SODIUM 50 MCG TAB PO SCH (06:03)
[2017-10-08] MEDS: METHADONE HCL 10 MG TAB PO SCH ×3 (06:03→22:15)
[2017-10-08] MEDS: SODIUM CHLORIDE 0.9% FLUSH 10 ML FLUSH IV FLUSH SCH ×2 (09:27→20:37)
[2017-10-08] MEDS: amLODIPine BESYLATE 5 MG TAB PO SCH (09:27)
[2017-10-08] MEDS: FAMOTIDINE 20 MG TAB PO SCH ×2 (09:27→20:37)
[2017-10-08] MEDS: DOCUSATE SODIUM 50 MG/SENNA 8.6 MG TAB PO SCH ×2 (09:27→20:37)
[2017-10-08] MEDS: ENALAPRILAT 1.25 MG/ML VIAL IV PUSH PRN (09:44)
--- NOTE | 2017-10-08 10:00 | PD.ONC.PN ---
Subjective Subjective Remarks Afebrile overnight. Patient resting in bed complaining of severe continued abdominal pain. Objective Data Date Time Temp Pulse Resp B/P (MAP) Pulse Ox O2 Delivery O2 Flow Rate FiO2 10/08/17 04:43 144/88 (106) 10/08/17 04:13 157/91 (113) 10/08/17 03:44 97.9 77 20 181/67 (105) 98 10/08/17 01:45 63 20 142/86 (104) 100 10/08/17 00:02 99.0 68 18 117/64 (81) 98 10/07/17 20:27 99.1 67 18 139/88 (105) 99 10/07/17 17:04 98.4 57 20 161/88 (112) 100 10/07/17 13:33 72 18 147/85 (105) 100 10/07/17 12:21 98.2 67 17 156/89 (111) 99 10/08/17 10/08/17 10/08/17 07:00 15:00 23:00 Intake Total 2360 ml Output Total 850 ml 470 ml Balance 1510 ml -470 ml Result Diagram: 10/08/17 0310 10/08/17 0310 Laboratory Results Laboratory Tests Test 10/08/17 03:10 White Blood Count 10.6 TH/MM3 Red Blood Count 3.57 MIL/MM3 Hemoglobin 10.3 GM/DL Hematocrit 29.8 % Mean Corpuscular Volume 83.6 FL Mean Corpuscular Hemoglobin 29.0 PG Mean Corpuscular Hemoglobin Concent 34.7 % Red Cell Distribution Width 14.7 % Platelet Count 174 TH/MM3 Mean Platelet Volume 9.8 FL Neutrophils (%) (Auto) 69.9 % Lymphocytes (%) (Auto) 16.5 % Monocytes (%) (Auto) 11.5 % Eosinophils (%) (Auto) 1.9 % Basophils (%) (Auto) 0.2 % Neutrophils # (Auto) 7.4 TH/MM3 Lymphocytes # (Auto) 1.8 TH/MM3 Monocytes # (Auto) 1.2 TH/MM3 Eosinophils # (Auto) 0.2 TH/MM3 Basophils # (Auto) 0.0 TH/MM3 CBC Comment DIFF FINAL Differential Comment Blood Urea Nitrogen 8 MG/DL Creatinine 0.44 MG/DL Random Glucose 92 MG/DL Total Protein 6.0 GM/DL Albumin 2.3 GM/DL Calcium Level 8.3 MG/DL Alkaline Phosphatase 469 U/L Aspartate Amino Transf (AST/SGOT) 38 U/L Alanine Aminotransferase (ALT/SGPT) 88 U/L Total Bilirubin 6.5 MG/DL Sodium Level 138 MEQ/L Potassium Level 3.4 MEQ/L Chloride Level 100 MEQ/L Carbon Dioxide Level 30.1 MEQ/L Anion Gap 8 MEQ/L Estimat Glomerular Filtration Rate 197 ML/MIN Administered Medications Medications (Trade) Dose Ordered Sig/Nikia Route PRN Reason Start Time Stop Time Status Last Admin Dose Admin Sodium Chloride (NS Flush) 2 ml UNSCH PRN IV FLUSH FLUSH AFTER USING IV ACCESS 10/04/17 15:00 10/08/17 04:39 Sodium Chloride (NS Flush) 2 ml BID IV FLUSH 10/04/17 21:00 10/08/17 09:27 Senna/Docusate Sodium (Alysha-Colace) 1 tab BID PO 10/05/17 09:00 10/08/17 09:27 Magnesium Hydroxide ([employer] Liq) 30 ml Q12H PRN PO Mild constipation 10/04/17 15:00 10/07/17 09:22 Levothyroxine Sodium (Synthroid) 50 mcg DAILY@0600 PO 10/05/17 06:00 10/08/17 06:03 Famotidine (Pepcid) 20 mg BID PO 10/04/17 21:00 10/08/17 09:27 Enalaprilat (Vasotec Inj) 1.25 mg Q6H PRN IV PUSH SEE LABEL COMMENTS 10/04/17 15:45 10/08/17 09:44 Potassium Chloride/Sodium Chloride 1,000 ml @ 100 mls/hr Q10H IV 10/05/17 12:00 10/08/17 09:33 Enoxaparin Sodium (Lovenox Inj) 40 mg Q24H SQ 10/06/17 16:00 10/07/17 13:33 Methadone HCl (Dolophine) 20 mg Q8HR PO 10/07/17 09:00 10/08/17 06:03 Amlodipine Besylate (Norvasc) 2.5 mg DAILY PO 10/07/17 11:15 10/08/17 09:27 Hydromorphone HCl (Dilaudid Pf Inj) 1.5 mg Q2HR PRN IV PUSH BREAKTHROUGH PAIN 10/08/17 09:00 10/08/17 09:23 Objective Remarks GENERAL: Middle aged male, chronically ill appearing, lying supine in bed, writhing in pain. SKIN: Warm and dry. HEAD: Normocephalic. EYES: no injection or drainage. NECK: Supple, trachea midline. CARDIOVASCULAR: Regular rate and rhythm RESPIRATORY: scattered rhonchi. GASTROINTESTINAL: Abdomen soft, tender to palpation in epigastrium. nondistended. EXTREMITIES: No cyanosis NEUROLOGICAL: awake and alert. normal speech. Assessment/Plan Assessment 61-year-old male with unresectable pancreatic cancer admitted with obstructive jaundice Plan 1. continue Methadone 20mg PO q 8 hours. increase dilaudid to 1.5mg and give 2 q hours. 2. await palliative care consult. 3. continue supportive care Donna Jamison October 08, 2017 10:00 Yasmani Lopez MD October 08, 2017 21:51
--- NOTE | 2017-10-08 10:40 | HHI.FPPN ---
Subjective Remarks Patient continues to have significant epigastric pain despite the current Dilaudid, methadone dose. Oncology come by to see him this morning and is increasing the frequency in which he can get his Dilaudid. Discussion was had about whether or not a back digger operator would be appreciated any stated that it would. Denies chest pain, nausea or vomiting. (Gerber Vance MD R1) Objective Vitals Vital Signs Date Time Temp Pulse Resp B/P (MAP) Pulse Ox O2 Delivery O2 Flow Rate FiO2 10/08/17 04:43 144/88 (106) 10/08/17 04:13 157/91 (113) 10/08/17 03:44 97.9 77 20 181/67 (105) 98 10/08/17 01:45 63 20 142/86 (104) 100 10/08/17 00:02 99.0 68 18 117/64 (81) 98 10/07/17 20:27 99.1 67 18 139/88 (105) 99 10/07/17 17:04 98.4 57 20 161/88 (112) 100 10/07/17 13:33 72 18 147/85 (105) 100 10/07/17 12:21 98.2 67 17 156/89 (111) 99 I/O 10/07/17 10/07/17 10/07/17 10/08/17 10/08/17 10/08/17 07:00 15:00 23:00 07:00 15:00 23:00 Intake Total 1360 ml 2360 ml Output Total 1650 ml 1200 ml 1150 ml 850 ml 470 ml Balance -290 ml -1200 ml -1150 ml 1510 ml -470 ml Intake Oral 360 ml 360 ml IV Total 1000 ml 2000 ml Output Urine Total 1650 ml 1200 ml 425 ml 550 ml 470 ml Drainage Total 725 ml 300 ml # Bowel Movements 0 (Gerber Vance MD R1) Result Diagram: 10/08/17 0310 10/08/17 0310 Objective Remarks GENERAL: This is a cachectic, notably jaundiced male laying in bed in no acute distress CARDIOVASCULAR: Regular rate and rhythm without murmurs, gallops, or rubs. RESPIRATORY: Clear to auscultation. Breath sounds equal bilaterally. No wheezes , rales, or rhonchi. GASTROINTESTINAL: Abdomen soft, nondistended. Generalized tenderness to palpation. No guarding. Biliary drain in place with overlying bandage clean dry and intact. MUSCULOSKELETAL: Extremities without clubbing, cyanosis, or edema. NEUROLOGICAL: Awake and alert. Motor and sensory grossly within normal limits. Normal speech. (Gerber Vance MD R1) A/P Assessment and Plan 61-year-old male with history of locally advanced pancreatic carcinoma, COPD, hypothyroidism presenting to the ED after being sent by his oncologist Dr. Lopez with concerns for obstructive jaundice. Said progressively worsening abdominal pain, discoloration of the skin, dark-colored urine, white stools. CT scan on admission showing ill-defined mass in the head of the pancreas with associated dilation of the distal pancreatic duct, dilation of the common hepatic duct and intrahepatic biliary ducts. GI and oncology consult. ERCP with stent placement was attempted but unsuccessful. Interventional radiology was consulted and placed a biliary drain on 10/05. Discharge Planning Pending pain control and management of his obstructive jaundice (Gerber Vance MD R1) Problem List: (1) Obstructive jaundice ICD Codes: K83.8 - Other specified diseases of biliary tract Status: Acute Plan: GI consulted-ERCP unable to be placed IR consulted for biliary drain placement. POD#3 Currently on methadone every 8 hours, increasing Dilaudid to 1.5 mg every 2 hours as needed Liver enzymes trending down postoperatively See pancreatic adenocarcinoma below (2) Pancreatic adenocarcinoma ICD Codes: C25.9 - Malignant neoplasm of pancreas, unspecified Plan: Patient with a known history of pancreatic adenocarcinoma, diagnosed in June 2017 Consulting oncology, Dr. Gore -Systemic chemotherapy in outpatient setting Palliative care consult on 10/06. Consulted back digger operator on 10/08 Oncology is considering celiac axis block for pain control Adding Vistaril 25 mg every 8 hours as needed See plan for obstructive jaundice above (3) Hypothyroidism ICD Codes: E03.9 - Hypothyroidism, unspecified Plan: Known history of hypothyroidism Continue home levothyroxine (4) Anemia ICD Codes: D64.9 - Anemia, unspecified Status: Chronic Plan: Hemoglobin of 11.2 on admission and has remained stable Appears to be stable compared to recent hospitalizations Normal MCV, likely secondary to anemia of chronic disease We will continue to monitor (5) Hypertension ICD Codes: I10 - Essential (primary) hypertension Status: Resolved Plan: Continues to be occasionally elevated Likely secondary to pain Added amlodipine 2.5mg daily on 10/07 IV Vasotec available as needed for systolic blood pressures greater than 170, diastolic pressures greater than 100 (6) FEN Plan: Fluids: Maintenance fluids We will replace electrolytes as needed FLD, may advance if tolerated Lovenox for DVT prophylaxis (Gerber Vance MD R1) Problem List: (1) Obstructive jaundice ICD Codes: K83.8 - Other specified diseases of biliary tract Status: Acute Plan: GI consulted-ERCP unable to be placed IR consulted for biliary drain placement. POD#3 Currently on methadone every 8 hours, increasing Dilaudid to 1.5 mg every 2 hours as needed Liver enzymes trending down postoperatively See pancreatic adenocarcinoma below (2) Pancreatic adenocarcinoma ICD Codes: C25.9 - Malignant neoplasm of pancreas, unspecified Plan: Patient with a known history of pancreatic adenocarcinoma, diagnosed in June 2017 Consulting oncology, Dr. Gore -Systemic chemotherapy in outpatient setting Palliative care consult on 10/06. Consulted back digger operator on 10/08 Oncology is considering celiac axis block for pain control Adding Vistaril 25 mg every 8 hours as needed See plan for obstructive jaundice above (3) Hypothyroidism ICD Codes: E03.9 - Hypothyroidism, unspecified Plan: Known history of hypothyroidism Continue home levothyroxine (4) Anemia ICD Codes: D64.9 - Anemia, unspecified Status: Chronic Plan: Hemoglobin of 11.2 on admission and has remained stable Appears to be stable compared to recent hospitalizations Normal MCV, likely secondary to anemia of chronic disease We will continue to monitor (5) Hypertension ICD Codes: I10 - Essential (primary) hypertension Status: Resolved Plan: Continues to be occasionally elevated Likely secondary to pain Added amlodipine 2.5mg daily on 10/07 IV Vasotec available as needed for systolic blood pressures greater than 170, diastolic pressures greater than 100 (6) FEN Plan: Fluids: Maintenance fluids We will replace electrolytes as needed FLD, may advance if tolerated Lovenox for DVT prophylaxis See the residents documentation for details. I saw and evaluated the patient regarding the ascencio portions of this evaluation and agree with the residents findings and plans as written. Parts of this note were created using [employer] voice recognition software program. While efforts were made to correct any mistakes made by this software, some mistakes, errors, and omissions may remain in the final note that were not caught when the note was originally created. Plan of care was discussed and agreed upon with the patient as specifically documented in the above note. An opportunity to ask questions with explanation was provided. Patient voiced understanding on all information reviewed and discussed. (Jakub Langley MD) Problem Qualifiers (1) Anemia: Qualified Codes: D64.9 - Anemia, unspecified Gerber Vance MD R1 October 08, 2017 10:40 Jakub Langley MD October 10, 2017 11:01
--- NOTE | 2017-10-08 11:33 | PD.CONS ---
Consult Service Palliative Care . Consult Requested By Dr. Baker . Primary Care Physician Yasmani Lopez MD . Reason for Consultation a. To assist with evaluation and management of symptoms including: severe abdominal pain, anorexia/ cachexia, constipation. b. To assist medical decision maker(s) with: better understanding of current medical conditions; weighing benefits/burdens of medical treatment options; making medical treatment decisions. . HPI History of Present Illness Mr. German is a 61 year old meal with past medical history of pancreatic cancer, COPD, CHF, hypertension, hypothyroidism, GERD, melanoma removal 2000, migraines and chronic back pain due herniated discs followed by Methadone clinic. Patient has history of locally advanced unresectable pancreatic adenocarcinoma diagnosed in June 2017. Neoadjuvant chemotherapy (Abraxane and Gemzar) was recommended followed by chemoradiation, unfortunately has been unable to get chemo due to various circumstances including pneumothorax post port placement, social issues and this admission. Patient was previously seeing Dr. Kirk for pain management, however because services must be paid out of pocket. He was on Methadone 20mg PO BID prior to admission. He used to also take Morphine sulfate ER rior to admission. Patient presented to [facility] on 10/04/17 with possible obstructive jaundice from Dr. Lopez's office. Patient reported increasing epigastric abdominal pain increasing over a 2 week period of time with associated nausea, vomiting and decreased appetite. He was on Methadone for pain without relief. He also noticed yellowing of his skin and eyes that has gotten progressively worse. He denied any other symptoms. Initial evaluation revealed: * VS: temp 97.8, pulse 56, resp 19, BP 161/81, oxygen saturation 99% on room air. * WBC 9.0, hemoglobin 11.2, hematocrit 32.3, platelets 308, neutrophils 72.4% * PT 14.0, INR 1.4, PTT 29.5 * BUN 7, creatinine 0.61, glucose 106, sodium 140, potassium 3.1, chloride 105, carbon dioxide 26.6, GFR 135 * Alk phos 849, AST 152, ALT 183, total bilirubin 13.0 * Total protein 6.1, albumin 2.5 * Lactic acid 0.7 * Lipase 390 * Urinalysis negative * CT abdomen/pelvis - ill defined mass in the head of the pancreas measuring 2.5cm with associated dilatation of the distal pancreatic duct and intrahepatic biliary ductal dilatation. Patient was admitted with obstructive jaundice. Gastroenterology was consulted. Dr. Stallings attempted ERCP on 10/05/17 which revealed normal esophagus and stomach, significant edema and prominent folds with external compression unable to identify ampulla. Patient later underwent biliary stent placement by interventional radiology. Oncology, Dr. Lopez was consulted notes indicate poor social situation which may make seeking chemotherapy for pancreatic cancer. Palliative care was consulted to assist with pain management and clarification of treatment goals, notes indicate was concerned palliative care is hospice. During my visit patient is writhing in pain, he rates abdominal pain severe 10/ 10, he reports pain is constant. He has some relief with current PRN Hydromorphone 1.5mg IV last about 2 hours decreases the abdominal pain to 4/10. He denies nausea/ vomiting. He has not had a bowel movement since admission. . Function/Cognitive Trajectory Patient was functioning in the weeks prior to admission. About 4 days prior to admission he was spending more time in bed. He has lost 100 pounds in the past year. . Review of Systems Constitutional: COMPLAINS OF: Fatigue, Weight loss (100 pounds in the past year ), Change in appetite (decreased), Pain, Generalized weakness Endocrine: DENIES: Heat/cold intolerance, Polydipsia, Polyuria, Polyphagia Eyes: DENIES: Blurred vision, Diplopia, Eye inflammation, Eye pain, Vision loss , Photosensitivity, Double Vision, Blind spots Ears, nose, mouth, throat: DENIES: Tinnitus, Hearing loss, Vertigo, Nasal discharge, Oral lesions, Throat pain, Hoarseness, Ear Pain, Running Nose, Epistaxis, Sinus Pain, Toothache, Odynophagia Respiratory: COMPLAINS OF: Shortness of breath (when pain increases), DENIES: Apneas, Cough, Snoring, Wheezing, Hemoptysis, Sputum production Cardiovascular: COMPLAINS OF: Palpitations Gastrointestinal: COMPLAINS OF: Abdominal pain, Constipation, Nausea, Vomiting , Anorexia Genitourinary: DENIES: Sexual dysfunction, Urinary frequency, Urinary incontinence, Urgency, Hematuria, Dysuria, Nocturia, Penile Discharge, Testicular Pain, Testicular Swelling, Hesitancy, Dribbling, Decreased stream Musculoskeletal: COMPLAINS OF: Muscle aches, Back pain Integumentary: COMPLAINS OF: Abnormal pigmentation (jaundice worsening in the past few weeks. ) Hematologic/Lymphatics: COMPLAINS OF: Bruising Immunologic/Allergic: DENIES: Eczema, Urticaria Neurologic: COMPLAINS OF: Change in smell or taste, DENIES: Abnormal gait, Headache, Localized weakness, Paresthesias, Seizures, Speech Problems, Tremor, Poor Balance Psychiatric: COMPLAINS OF: Anxiety, DENIES: Confusion, Mood changes, Depression , Hallucinations, Agitation, Suicidal Ideation, Homicidal Ideation, Delusions, Anhedonia Past Family Social History Coded Allergies: No Known Allergies (Verified Allergy, Unknown, 10/04/17) Past Medical History herniated disc HTN pancreatic cancer hypothyroidism CHF COPD melanoma (RUE and left hand) migraines GERD . Past Surgical History Port placement (right) Melanoma removal RUE, left hand Inguinal hernia repair as child Pancreatic biopsy . Reported Medications Reported Meds & Active Scripts Active Thera Tablet (Multivitamin with Folic Acid) 400 Mcg Tablet 1 Tab PO DAILY 30 Days Reported Ranitidine (Ranitidine HCl) 150 Mg Tab 150 Mg PO BID Morphine ER (Morphine Sulfate) 15 Mg Tab 15 Mg PO BID Methadone (Methadone HCl) 10 Mg Tab 10 Mg PO QID Levothyroxine (Levothyroxine Sodium) 50 Mcg Tab 50 Mcg PO DAILY . Current Medications Medications (Trade) Dose Ordered Sig/Nikia Route Start Time Stop Time Status Last Admin (NS Flush) 2 ml UNSCH PRN IV FLUSH 10/04/17 15:00 10/08/17 04:39 (NS Flush) 2 ml BID IV FLUSH 10/04/17 21:00 10/08/17 09:27 (Zofran Inj) 4 mg Q6H PRN IVP 10/04/17 15:00 (Restoril) 15 mg HS PRN PO 10/04/17 15:00 (Narcan Inj) 0.4 mg UNSCH PRN IV PUSH 10/04/17 15:00 (Alysha-Colace) 1 tab BID PO 10/05/17 09:00 10/08/17 09:27 (Milk Of Magnesia Liq) 30 ml Q12H PRN PO 10/04/17 15:00 10/07/17 09:22 (Senokot) 17.2 mg Q12H PRN PO 10/04/17 15:00 (Dulcolax Supp) 10 mg DAILY PRN RECTAL 10/04/17 15:00 (Lactulose Liq) 30 ml DAILY PRN PO 10/04/17 15:00 (Synthroid) 50 mcg DAILY@0600 PO 10/05/17 06:00 10/08/17 06:03 (Pepcid) 20 mg BID PO 10/04/17 21:00 10/08/17 09:27 (Vasotec Inj) 1.25 mg Q6H PRN IV PUSH 10/04/17 15:45 10/08/17 09:44 Potassium Chloride/Sodium Chloride 1,000 ml @ 100 mls/hr Q10H IV 10/05/17 12:00 10/08/17 09:33 Lactated Ringer's 1,000 ml @ 30 mls/hr Q24H PRN IV 10/05/17 13:00 10/08/17 12:59 Sodium Chloride 500 ml @ 30 mls/hr [id number] PRN IV 10/05/17 13:00 10/08/17 12:59 (Lopressor) 25 mg TOOL STRAIGHTENER PRN PO 10/05/17 13:00 10/08/17 12:59 (Betadine 5% Antisepsis Kit) 1 applic TOOL STRAIGHTENER PRN EACH NARE 10/05/17 13:00 10/08/17 12:59 (Chlorhexidine 2% Cloth) 3 pack TOOL STRAIGHTENER PRN TOPICAL 10/05/17 13:00 10/08/17 12:59 (Lovenox Inj) 40 mg Q24H SQ 10/06/17 16:00 10/07/17 13:33 (Dolophine) 20 mg Q8HR PO 10/07/17 09:00 10/08/17 06:03 (Norvasc) 2.5 mg DAILY PO 10/07/17 11:15 10/08/17 09:27 (Pill Splitter) 1 ea UNSCH PRN OTHER 10/07/17 11:30 (Dilaudid Pf Inj) 1.5 mg Q2HR PRN IV PUSH 10/08/17 09:00 10/08/17 09:23 . Family History Both parents of cancer. Son in motorcycle accident. . Substance Use Tobacco: 50 pack year history of tobacco use. Alcohol: history of alcoholism, quit drinking in June 2017. Prescription med abuse: none. Illicits: none. . Psychosocial History to Iza for 23 years. He has 1 daughter, Meryl lives in [place]. Lives in a home in [place], [place] with his and 4 year old granddaughter, Carolann (who they have raising since ). 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 . Spiritual/Cultural Factors Buddhist aleisha. . Living Will: Never completed Health Care Surrogate: Never completed Durable Power of Mold Mover: Never completed Health Care Surrogate(s): Patient is currently capacitated to make his own decisions. If he loses capacity , according to [facility] statutes, health care proxy decision making would fall to his spouse. . Documented care wishes: None. Today's verbally stated goals: Patient desires adequate pain control. Was unable to participate in further conversation due to severe pain and lethargy after medication. . Family/friends goals: Spoke with Iza at length she verbalizes fears that patient is too ill/ weak to ever be able to get chemotherapy. She hates to see him suffer. She feels patient is ready to and has given up. She wants to talk to him more about his goals, verbalizes understanding of hospcie services and if his desire is for comfort that he is a candidate for hospice. Will meet again 10/09/17 at 10: 30am. . Ethical and Legal Issues Patient is currently capacitated to make his own decisions. If he loses capacity , according to [facility] statutes, health care proxy decision making would fall to his spouse. Physical Exam Vital Signs Date Time Temp Pulse Resp B/P (MAP) Pulse Ox O2 Delivery O2 Flow Rate FiO2 10/08/17 04:43 144/88 (106) 10/08/17 04:13 157/91 (113) 10/08/17 03:44 97.9 77 20 181/67 (105) 98 10/08/17 01:45 63 20 142/86 (104) 100 10/08/17 00:02 99.0 68 18 117/64 (81) 98 10/07/17 20:27 99.1 67 18 139/88 (105) 99 10/07/17 17:04 98.4 57 20 161/88 (112) 100 10/07/17 13:33 72 18 147/85 (105) 100 10/07/17 12:21 98.2 67 17 156/89 (111) 99 10/08/17 10/09/17 19:00 07:00 Output Total 470 ml Balance -470 ml Output Urine Total 470 ml Exam CONSTITUTIONAL/GENERAL: This is a cachectic patient, writhing in pain. TUBES/LINES/DRAINS: right port, biliary drain. SKIN: + jaundice. Ecchymoses on upper extremities. No wounds seen anteriorly. Skin temperature appropriate. Not diaphoretic. HEAD: Atraumatic. Normocephalic. Temporal wasting. EYES: Pupils equal and round and reactive. + scleral icterus. ENT: Hearing grossly normal. Nose without bleeding or purulent drainage. Poor dentition, few teeth. NECK: Trachea midline. CARDIOVASCULAR: Tachycardic. Murmur noted. RESPIRATORY/CHEST: Labored respirations at rest with pain. GASTROINTESTINAL: Abdomen diffuse tenderness to light palpation, nondistended. No guarding. Bowel sounds hypoactive. GENITOURINARY: Without palpable bladder distension. Dark urine noted in urinal. MUSCULOSKELETAL: Extremities without clubbing, cyanosis, or edema. No mottling or clubbing. LYMPHATICS: No palpable cervical or supraclavicular adenopathy. NEUROLOGICAL: Awake and alert. Follows commands. PSYCHIATRIC: Difficultly focusing on conversation due to severe abdominal pain. . Diagnostic Tests Laboratory Laboratory Tests Test 10/06/17 06:38 10/07/17 05:10 10/08/17 03:10 White Blood Count 9.5 TH/MM3 (4.0-11.0) 13.2 TH/MM3 (4.0-11.0) 10.6 TH/MM3 (4.0-11.0) Red Blood Count 4.10 MIL/MM3 (4.50-5.90) 4.19 MIL/MM3 (4.50-5.90) 3.57 MIL/MM3 (4.50-5.90) Hemoglobin 11.6 GM/DL (13.0-17.0) 11.7 GM/DL (13.0-17.0) 10.3 GM/DL (13.0-17.0) Hematocrit 34.0 % (39.0-51.0) 34.7 % (39.0-51.0) 29.8 % (39.0-51.0) Mean Corpuscular Volume 83.0 FL (80.0-100.0) 82.9 FL (80.0-100.0) 83.6 FL (80.0-100.0) Mean Corpuscular Hemoglobin 28.3 PG (27.0-34.0) 27.9 PG (27.0-34.0) 29.0 PG (27.0-34.0) Mean Corpuscular Hemoglobin Concent 34.1 % (32.0-36.0) 33.7 % (32.0-36.0) 34.7 % (32.0-36.0) Red Cell Distribution Width 15.5 % (11.6-17.2) 15.1 % (11.6-17.2) 14.7 % (11.6-17.2) Platelet Count 275 TH/MM3 (150-450) 248 TH/MM3 (150-450) 174 TH/MM3 (150-450) Mean Platelet Volume 9.7 FL (7.0-11.0) 9.7 FL (7.0-11.0) 9.8 FL (7.0-11.0) Neutrophils (%) (Auto) 81.6 % (16.0-70.0) 69.9 % (16.0-70.0) Lymphocytes (%) (Auto) 11.6 % (9.0-44.0) 16.5 % (9.0-44.0) Monocytes (%) (Auto) 5.9 % (0.0-8.0) 11.5 % (0.0-8.0) Eosinophils (%) (Auto) 0.2 % (0.0-4.0) 1.9 % (0.0-4.0) Basophils (%) (Auto) 0.7 % (0.0-2.0) 0.2 % (0.0-2.0) Neutrophils # (Auto) 7.7 TH/MM3 (1.8-7.7) 7.4 TH/MM3 (1.8-7.7) Lymphocytes # (Auto) 1.1 TH/MM3 (1.0-4.8) 1.8 TH/MM3 (1.0-4.8) Monocytes # (Auto) 0.6 TH/MM3 (0-0.9) 1.2 TH/MM3 (0-0.9) Eosinophils # (Auto) 0.0 TH/MM3 (0-0.4) 0.2 TH/MM3 (0-0.4) Basophils # (Auto) 0.1 TH/MM3 (0-0.2) 0.0 TH/MM3 (0-0.2) CBC Comment DIFF FINAL DIFF FINAL Differential Comment Blood Urea Nitrogen 7 MG/DL (7-18) 7 MG/DL (7-18) 8 MG/DL (7-18) Creatinine 0.60 MG/DL (0.60-1.30) 0.46 MG/DL (0.60-1.30) 0.44 MG/DL (0.60-1.30) Random Glucose 127 MG/DL (74-106) 113 MG/DL (74-106) 92 MG/DL (74-106) Total Protein 6.0 GM/DL (6.4-8.2) 6.4 GM/DL (6.4-8.2) 6.0 GM/DL (6.4-8.2) Albumin 2.3 GM/DL (3.4-5.0) 2.5 GM/DL (3.4-5.0) 2.3 GM/DL (3.4-5.0) Calcium Level 8.6 MG/DL (8.5-10.1) 8.5 MG/DL (8.5-10.1) 8.3 MG/DL (8.5-10.1) Alkaline Phosphatase 782 U/L (45-117) 645 U/L (45-117) 469 U/L (45-117) Aspartate Amino Transf (AST/SGOT) 90 U/L (15-37) 55 U/L (15-37) 38 U/L (15-37) Alanine Aminotransferase (ALT/SGPT) 150 U/L (12-78) 115 U/L (12-78) 88 U/L (12-78) Total Bilirubin 9.3 MG/DL (0.2-1.0) 8.5 MG/DL (0.2-1.0) 6.5 MG/DL (0.2-1.0) Sodium Level 137 MEQ/L (136-145) 135 MEQ/L (136-145) 138 MEQ/L (136-145) Potassium Level 3.6 MEQ/L (3.5-5.1) 3.5 MEQ/L (3.5-5.1) 3.4 MEQ/L (3.5-5.1) Chloride Level 102 MEQ/L (98-107) 96 MEQ/L (98-107) 100 MEQ/L (98-107) Carbon Dioxide Level 27.0 MEQ/L (21.0-32.0) 29.5 MEQ/L (21.0-32.0) 30.1 MEQ/L (21.0-32.0) Anion Gap 8 MEQ/L (5-15) 10 MEQ/L (5-15) 8 MEQ/L (5-15) Estimat Glomerular Filtration Rate 138 ML/MIN (>89) 187 ML/MIN (>89) 197 ML/MIN (>89) Result Diagram: 10/08/17 0310 10/08/17 0310 Imaging Last Impressions Bile Duct Drainage 10/05/17 0000 Signed Impressions: Service Date/Time: Thursday, October 05, 2017 14:56 - CONCLUSION: Uncomplicated biliary stent placement as above. Brant Escamilla MD Abdomen/Pelvis CT 10/04/17 1107 Signed Impressions: Service Date/Time: October 14:03 - CONCLUSION: Findings suggest ill-defined mass in the head of the pancreas measuring 2.5 cm with associated dilation of the distal pancreatic duct, more dilation of the common hepatic duct and intrahepatic biliary ductal dilatation. Sebastian Suggs MD . Procedures * Biliary drain placement. Patient/Family Conference Present at Family Conference: Met with patient and his . Family Conference Time (mins): 60 (25 minutes in advance care planning) Family Conference Location: Bedside Issues Discussed: * Palliative care role, purpose, approach * Additional medical, psychosocial, and spiritual history * Patients general health, functional status, and cognitive changes in the months leading up to the current hospitalization * Patient/family understanding of the current medical problems * Patient/family understanding of prognosis * Patients goals of care as best understood from advance directives and/or conversations and/or values - he desires to be allowed to naturally "no machines." * Current medical treatment options and benefits/burdens of those options * Likely scenarios comparing ongoing aggressive care with a transition to comfort measures only * Questions answered to the best of my ability * Palliative care contact information provided Spoke with patient who was struggling to participate due to severe abdominal pain. Spoke with Iza at length she verbalizes fears that patient is too ill/ weak to ever be able to get chemotherapy.Spoke about end of life wishes , code status, hospice services, continuing aggressive care vs. transition to comfort 25 minutes. hates to see patient suffer. She feels patient is ready to and has given up. She wants to talk to him more about his goals, verbalizes understanding of hospice services and if his desire is for comfort that he is a candidate for hospice. Family will speak and notify palliative care if they wish to meet with hospice. Will meet again 10/09/17 at 10:30am. . Assessment and Plan Disease Oriented Problem List: (1) Hypertension (2) Anemia (3) Pancreatic adenocarcinoma (4) Hypothyroidism (5) Obstructive jaundice (6) Pancreatic cancer Symptom Scale: (1) Pain 0-10 Scale: 10 Comment: severe constant abdominal pain, temporary relief with PRN Dilaudid 1.5mg IV every 2 hours. . (2) Anorexia 0-10 Scale: Unable to quantify Comment: due to malignancy. (3) Constipation 0-10 Scale: Unable to quantify Comment: No BM recorded since admission, may be contributing to abdominal pain. Pertinent Non-Medical Issues Psychosocial: . Lives with his and granddaughter (Carolann, age 4 they have been raising since ) in [place]. Spiritual: Buddhist aleisha. Legal: Patient is capacitated to make his own decisions. If he loses capacity, according to [facility] statutes, health care proxy decision making would fall to his spouse. Ethical issues impacting care: No known concerns at this time. . Important Contacts * Iza German, : [phone] . Prognosis Mr. German is a cachectic male with severe muscle wasting/ atrophy with pancreatic cancer found to have obstructive jaundice post biliary drain placement. Overall prognosis is poor. Hospice appropriate if goals are comfort oriented. . Code Status: No Code Plan * Patient is currently capacitated to make his own decisions. If he loses capacity, according to [facility] statutes, health care proxy decision making would fall to his spouse. * NO CODE * 10/08/17 - Spoke with patient who was struggling to participate due to severe abdominal pain. Spoke with Iza at length she verbalizes fears that patient is too ill/ weak to ever be able to get chemotherapy. She hates to see him suffer. She feels patient is ready to and has given up. She wants to talk to him more about his goals, verbalizes understanding of hospice services and if his desire is for comfort that he is a candidate for hospice. Family will speak and notify palliative care if they wish to meet with hospice. Will meet again 10/09/17 at 10:30am. * SYMPTOMS: Abdominal pain: due to tumor and biliary obstruction, also has chronic back pain. Was on Methadone 20mg PO BID prior to admission. Currently on Methadone 20 mg PO every 8 hours ATC increased on 10/07/17 expect 72 hours before medication reaches full effect. Hydromorphone TURNTABLE ENGINEER has been ordered (no continuous rate with 0.5mg every 10 minutes PRN with 1 hour limit of 1mg). Will monitor need. Patient and are in agreement to monitor overnight. Anorexia/ Cachexia: due to malignancy, significant muscle wasting, temporal wasting, weight loss 100 pounds in past year. Albumin 2.3. Constipation: Senna BID ATC. Has PRN MOM, Senokot, Dulcolax and Lactulose available. Encouraged dose today. * Palliative care number provided. * Palliative care will continue to follow to assist with communication, pain management and clarification of medical treatment goals as needed. . Thank you for the opportunity to participate in the care of Mr. German. Attestation To help prompt me to consider important information that might be impacting today's encounter and assessment, information from prior notes written by myself or my colleagues may have been "brought forward" into today's note. My signature on this note, however, is an attestation that I personally performed the exam, history, and/or decision-making noted today, and, unless otherwise indicated, the interactions with patient, family, and staff as well as the review of records all occurred today. I also attest that the listed assessment and stated plan reflect my best clinical judgment today based on the combination of historical information, prior notes, and today's exam/ interactions. When time spent is documented, it refers only to time spent today by the signer, or if indicated, combined time spent today by collaborating physician/nurse practitioner. Porsha Lopez October 08, 2017 11:33
[2017-10-08] MEDS ORDERED: hydrOXYzine PAMOATE 25 MG CAP PO PRN (12:00)
[2017-10-08] MEDS ORDERED: POTASSIUM CHLORIDE 20 MEQ CONTROLLED RELEASE TAB PO ONE (12:00)
[2017-10-08] MEDS ORDERED: NALOXONE HCL 0.4 MG/ML AMP IV PUSH PRN (13:15)
--- NOTE | 2017-10-08 13:20 | RADRPT ---
EXAM DATE/TIME: 10/08/2017 00:00 [facility] COMPARISON : No previous studies available for comparison. INDICATIONS : Pancreatic cancer. Evaluate for celiac plexus block The patient's CT examination of the abdomen and pelvis from October 04, 2017 was reviewed. Unfortunately, because of the patient's degree of cachexia, I do not see any significant potential space in which to instill alcohol for celiac plexus block. The patient has almost complete absence of retroperitoneal fat which would normally serve as a reservoir into which the caustic agent could be safely injected. As such, I do not believe the patient is a candidate for this treatment. Narciso Akbar MD on October 08, 2017 at 13:13 Board Certified Radiologist. This report was verified electronically.
[2017-10-08] MEDS: HYDROmorphone HCL PCA 6 MG/30 ML IV SCH (15:20)
[2017-10-08] MEDS: ENOXAPARIN SODIUM 40 MG/0.4 ML SYRINGE SQ SCH (16:00)
[2017-10-08] MEDS: PCA - TOTAL MG DILAUDID DELIVERED PER SHIFT OTHER SCH (22:00)
[2017-10-09] VITALS (9 sets, daily range): BP systolic 117–175; BP diastolic 70–98; PULSE 63–79; RESP 16–18; TEMP 97.4–98.9; O2SAT 93–99
[2017-10-09] MEDS: PCA - TOTAL MG DILAUDID DELIVERED PER SHIFT OTHER SCH ×3 (06:00→22:00)
[2017-10-09] MEDS: METHADONE HCL 10 MG TAB PO SCH ×3 (06:06→22:31)
[2017-10-09] MEDS: NS + KCL 20 MEQ INJ 1,000 ML IV SCH ×2 (06:06→19:34)
[2017-10-09] MEDS: LEVOTHYROXINE SODIUM 50 MCG TAB PO SCH (06:06)
[2017-10-09 06:14] LABS: AUTOMATED NEUTROPHIL # 6.2 TH/MM3 (1.8-7.7); BASOPHIL % 0.4 % (0.0-2.0); EOSINOPHIL # 0.4 TH/MM3 (0-0.4); EOSINOPHIL % 4.6 % (0.0-4.0); HEMATOCRIT 25.2 % (39.0-51.0); HEMOGLOBIN 8.7 GM/DL (13.0-17.0); LYMPH % 13.9 % (9.0-44.0); LYMPHOCYTE # 1.2 TH/MM3 (1.0-4.8); MEAN CELL VOLUME 83.4 FL (80.0-100.0); MEAN CORPUSCULAR HEMOGLOBIN 28.6 PG (27.0-34.0); MEAN CORPUSCULAR HGB CONC 34.3 % (32.0-36.0); MONO % 10.5 % (0.0-8.0); MONOCYTE # 0.9 TH/MM3 (0-0.9); NEUT % 70.6 % (16.0-70.0); PLATELET COUNT 99 TH/MM3 (150-450); RED BLOOD COUNT 3.03 MIL/MM3 (4.50-5.90); RED CELL DISTRIBUTION WIDTH 14.2 % (11.6-17.2); WHITE BLOOD COUNT 8.8 TH/MM3 (4.0-11.0)
[2017-10-09 06:35] LABS: ALBUMIN 2.1 GM/DL (3.4-5.0); AST (GOT) 33 U/L (15-37); BICARBONATE 28.7 MEQ/L (21.0-32.0); BLOOD UREA NITROGEN 8 MG/DL (7-18); CALCIUM 8.2 MG/DL (8.5-10.1); CHLORIDE 99 MEQ/L (98-107); GLOMERULAR FILTRATION RATE 220 ML/MIN (>89); GLUCOSE,RANDOM 79 MG/DL (74-106); SODIUM (NA) 135 MEQ/L (136-145)
[2017-10-09 06:40] LABS: ALKALINE PHOSPHATASE 378 U/L (45-117); ALT (GPT) 67 U/L (12-78); TOTAL BILIRUBIN ADULT 5.5 MG/DL (0.2-1.0); TOTAL PROTEIN 5.4 GM/DL (6.4-8.2)
[2017-10-09] MEDS ORDERED: POTASSIUM CHLORIDE 20 MEQ CONTROLLED RELEASE TAB PO ONE (07:15)
[2017-10-09] MEDS: amLODIPine BESYLATE 5 MG TAB PO SCH (08:31)
[2017-10-09] MEDS: FAMOTIDINE 20 MG TAB PO SCH ×2 (08:32→19:35)
[2017-10-09] MEDS: DOCUSATE SODIUM 50 MG/SENNA 8.6 MG TAB PO SCH ×2 (08:32→19:36)
[2017-10-09] MEDS: SODIUM CHLORIDE 0.9% FLUSH 10 ML FLUSH IV FLUSH SCH ×2 (08:32→19:35)
--- NOTE | 2017-10-09 09:10 | PD.ONC.PN ---
Subjective Subjective Remarks Afebrile overnight. Patient resting in bed. 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 Waiting to go downstairs for procedure in invasive radiology. Hungry, hoping to eat soon. Objective Data Date Time Temp Pulse Resp B/P (MAP) Pulse Ox O2 Delivery O2 Flow Rate FiO2 10/09/17 06:00 16 10/09/17 04:14 98.7 69 18 117/70 (86) 97 10/09/17 00:30 98.8 73 18 123/76 (92) 97 10/08/17 22:00 16 10/08/17 20:38 99.0 62 18 138/84 (102) 99 10/08/17 16:00 98.0 77 21 174/105 (128) 97 10/08/17 15:20 16 10/08/17 12:00 97.7 72 18 186/113 (137) 99 10/08/17 09:30 97.6 72 16 210/104 (139) 99 10/09/17 10/09/17 10/09/17 07:00 15:00 23:00 Output Total 600 ml Balance -600 ml Result Diagram: 10/09/17 0420 10/09/17 0420 Laboratory Results Laboratory Tests Test 10/09/17 04:20 White Blood Count 8.8 TH/MM3 Red Blood Count 3.03 MIL/MM3 Hemoglobin 8.7 GM/DL Hematocrit 25.2 % Mean Corpuscular Volume 83.4 FL Mean Corpuscular Hemoglobin 28.6 PG Mean Corpuscular Hemoglobin Concent 34.3 % Red Cell Distribution Width 14.2 % Platelet Count 99 TH/MM3 Mean Platelet Volume 10.0 FL Neutrophils (%) (Auto) 70.6 % Lymphocytes (%) (Auto) 13.9 % Monocytes (%) (Auto) 10.5 % Eosinophils (%) (Auto) 4.6 % Basophils (%) (Auto) 0.4 % Neutrophils # (Auto) 6.2 TH/MM3 Lymphocytes # (Auto) 1.2 TH/MM3 Monocytes # (Auto) 0.9 TH/MM3 Eosinophils # (Auto) 0.4 TH/MM3 Basophils # (Auto) 0.0 TH/MM3 CBC Comment AUTO DIFF Differential Comment AUTO DIFF CONFIRMED Platelet Estimate LOW Platelet Morphology Comment NORMAL Blood Urea Nitrogen 8 MG/DL Creatinine 0.40 MG/DL Random Glucose 79 MG/DL Total Protein 5.4 GM/DL Albumin 2.1 GM/DL Calcium Level 8.2 MG/DL Alkaline Phosphatase 378 U/L Aspartate Amino Transf (AST/SGOT) 33 U/L Alanine Aminotransferase (ALT/SGPT) 67 U/L Total Bilirubin 5.5 MG/DL Sodium Level 135 MEQ/L Potassium Level 3.3 MEQ/L Chloride Level 99 MEQ/L Carbon Dioxide Level 28.7 MEQ/L Anion Gap 7 MEQ/L Estimat Glomerular Filtration Rate 220 ML/MIN Administered Medications Medications (Trade) Dose Ordered Sig/Nikia Route PRN Reason Start Time Stop Time Status Last Admin Dose Admin Sodium Chloride (NS Flush) 2 ml UNSCH PRN IV FLUSH FLUSH AFTER USING IV ACCESS 10/04/17 15:00 10/08/17 04:39 Sodium Chloride (NS Flush) 2 ml BID IV FLUSH 10/04/17 21:00 10/08/17 20:37 Senna/Docusate Sodium (Alysha-Colace) 1 tab BID PO 10/05/17 09:00 10/08/17 20:37 Magnesium Hydroxide (Milk Of [place] Liq) 30 ml Q12H PRN PO Mild constipation 10/04/17 15:00 10/07/17 09:22 Levothyroxine Sodium (Synthroid) 50 mcg DAILY@0600 PO 10/05/17 06:00 10/09/17 06:06 Famotidine (Pepcid) 20 mg BID PO 10/04/17 21:00 10/08/17 20:37 Enalaprilat (Vasotec Inj) 1.25 mg Q6H PRN IV PUSH SEE LABEL COMMENTS 10/04/17 15:45 10/08/17 09:44 Potassium Chloride/Sodium Chloride 1,000 ml @ 100 mls/hr Q10H IV 10/05/17 12:00 10/09/17 06:06 Enoxaparin Sodium (Lovenox Inj) 40 mg Q24H SQ 10/06/17 16:00 10/07/17 13:33 Methadone HCl (Dolophine) 20 mg Q8HR PO 10/07/17 09:00 10/09/17 06:06 Amlodipine Besylate (Norvasc) 2.5 mg DAILY PO 10/07/17 11:15 10/09/17 08:31 Hydromorphone HCl (Dilaudid [employer] Inj) 6 mg UNSCH IV 10/08/17 13:15 10/08/17 15:20 [employer] Dosage Infused (Pha) 1 Q8HR OTHER 10/08/17 14:00 10/09/17 06:00 Objective Remarks GENERAL: Middle aged male, sitting up in bed in nad. SKIN: Warm and dry. HEAD: Normocephalic. EYES: No injection or drainage. NECK: Supple, trachea midline. CARDIOVASCULAR: Regular rate and rhythm RESPIRATORY: anterior fleming with occasional rhonchi. GASTROINTESTINAL: Abdomen soft, +ttp epigastrium, nondistended. EXTREMITIES: No cyanosis NEUROLOGICAL: awake and alert. normal speech. moving extremities. Assessment/Plan Assessment 61-year-old male with unresectable pancreatic cancer admitted with obstructive jaundice Plan 1. continue Methadone 20mg PO q 8 hours. continue dilaudid [employer]KS 2. invasive radiology procedure today 3. continue supportive care. Attending Statement The exam, history, and the medical decision-making described in the above note were completed with the assistance of the mid-level provider. I reviewed and agree with the findings presented. I attest that I had a [id number] encounter with the patient on the same day, and personally performed and documented my assessment and findings in the medical record. Locally adanced unresectable pancreatic adenocarcinoma with billiary obstruction s/p biliary drain drop in platelets likely due to acute illness/background hx of alcohol abuse-- although no liver cirrhosis trend platelets spoke with patient at length He wants aggressive treatment and wants to receive chemotherapy pain is better controlled focus on nutrition--albumin is low 2.1 will consider giving first chemotherapy treatment in-patient --in the interest of preventing further delay. He has been non-compliant with office visits in the past Donna Jamison October 09, 2017 09:10 Yasmani Lopez MD October 09, 2017 20:44
--- NOTE | 2017-10-09 11:48 | HHI.HCPN ---
Reason for visit a. To assist with evaluation and management of symptoms including: severe abdominal pain, anorexia/ cachexia, constipation. b. To assist medical decision maker(s) with: better understanding of current medical conditions; weighing benefits/burdens of medical treatment options; making medical treatment decisions. . Subjective/Interval History Patient seen and examined in room. at bedside. Also present Meryl Ness LCSW and Pantera RN. Patient is awake and alert. He is more talkative today. He reports pain is better this morning. Nursing pain scales recorded in the past 24 hours have decreased with the [employer] ASSISTANT pump. Pain scales were 10 now decreased to 5-6. He reports intermittent upper abdominal pain. He is hoping to eat after IR internalizes biliary stent. Vital signs stable. . Family/friend interactions Met with patient and his , Iza at bedside. He is awake and participating in this conversation. He tells me he wants "fight the cancer." They report oncology was "not very positive today." He is not ready to consider hospice, though he is open to considering hospice in the future. He knows he is going to from this pancreatic cancer, but he is not ready to give up. He and his understand the likely disease progression, difficulties he faces in relation to pain, functional and nutritional issues, etc. He and his are going to speak more about hospice and are considering meeting with them prior to DC. He confirms desire for NO CODE. 6pm: left message for Camron German (brother) to provide medical update per pt and request. Advance Directives Living Will: Never completed Health Care Surrogate: Never completed Durable Power of Skein Spooler: Never completed Advance Directive Specifics Health Care Surrogate(s): Patient is currently capacitated to make his own decisions. If he loses capacity , according to [facility] statutes, health care proxy decision making would fall to his spouse. . Documented care wishes: None. Significant change in goals: NO CODE. Goals remain aggressive at this time, considering hospice in the future if unable to get chemo or if he decides quality of life is more important to him than quantity. . Objective Vital Signs Date Time Temp Pulse Resp B/P (MAP) Pulse Ox O2 Delivery O2 Flow Rate FiO2 10/09/17 08:23 97.9 67 16 131/90 (104) 99 10/09/17 06:00 16 10/09/17 04:14 98.7 69 18 117/70 (86) 97 10/09/17 00:30 98.8 73 18 123/76 (92) 97 10/08/17 22:00 16 10/08/17 20:38 99.0 62 18 138/84 (102) 99 10/08/17 16:00 98.0 77 21 174/105 (128) 97 10/08/17 15:20 16 10/08/17 12:00 97.7 72 18 186/113 (137) 99 Intake & Output 10/09/17 10/09/17 07:00 19:00 Intake Total 1000 ml Output Total 850 ml Balance 150 ml IV Total 1000 ml Output Urine Total 650 ml Drainage Total 200 ml Physical Exam CONSTITUTIONAL/GENERAL: This is a cachectic patient, writhing in pain. TUBES/LINES/DRAINS: right port, biliary drain. SKIN: + jaundice. Ecchymoses on upper extremities. No wounds seen anteriorly. Skin temperature appropriate. Not diaphoretic. EYES: Pupils equal and round and reactive. + scleral icterus. ENT: Hearing grossly normal. Nose without bleeding or purulent drainage. Poor dentition, few teeth. CARDIOVASCULAR: Tachycardic. Murmur noted. RESPIRATORY/CHEST: Labored respirations at rest with pain. GASTROINTESTINAL: Abdomen diffuse tenderness to light palpation, nondistended. No guarding. Bowel sounds hypoactive. GENITOURINARY: Without palpable bladder distension. Dark urine noted in urinal. MUSCULOSKELETAL: Extremities without clubbing, cyanosis, or edema. No mottling or clubbing. NEUROLOGICAL: Awake and alert. Follows commands. PSYCHIATRIC: Difficultly focusing on conversation due to severe abdominal pain. . Diagnostic Tests Laboratory Laboratory Tests Test 10/07/17 05:10 10/08/17 03:10 10/09/17 04:20 White Blood Count 13.2 TH/MM3 (4.0-11.0) 10.6 TH/MM3 (4.0-11.0) 8.8 TH/MM3 (4.0-11.0) Red Blood Count 4.19 MIL/MM3 (4.50-5.90) 3.57 MIL/MM3 (4.50-5.90) 3.03 MIL/MM3 (4.50-5.90) Hemoglobin 11.7 GM/DL (13.0-17.0) 10.3 GM/DL (13.0-17.0) 8.7 GM/DL (13.0-17.0) Hematocrit 34.7 % (39.0-51.0) 29.8 % (39.0-51.0) 25.2 % (39.0-51.0) Mean Corpuscular Volume 82.9 FL (80.0-100.0) 83.6 FL (80.0-100.0) 83.4 FL (80.0-100.0) Mean Corpuscular Hemoglobin 27.9 PG (27.0-34.0) 29.0 PG (27.0-34.0) 28.6 PG (27.0-34.0) Mean Corpuscular Hemoglobin Concent 33.7 % (32.0-36.0) 34.7 % (32.0-36.0) 34.3 % (32.0-36.0) Red Cell Distribution Width 15.1 % (11.6-17.2) 14.7 % (11.6-17.2) 14.2 % (11.6-17.2) Platelet Count 248 TH/MM3 (150-450) 174 TH/MM3 (150-450) 99 TH/MM3 (150-450) Mean Platelet Volume 9.7 FL (7.0-11.0) 9.8 FL (7.0-11.0) 10.0 FL (7.0-11.0) Blood Urea Nitrogen 7 MG/DL (7-18) 8 MG/DL (7-18) 8 MG/DL (7-18) Creatinine 0.46 MG/DL (0.60-1.30) 0.44 MG/DL (0.60-1.30) 0.40 MG/DL (0.60-1.30) Random Glucose 113 MG/DL (74-106) 92 MG/DL (74-106) 79 MG/DL (74-106) Total Protein 6.4 GM/DL (6.4-8.2) 6.0 GM/DL (6.4-8.2) 5.4 GM/DL (6.4-8.2) Albumin 2.5 GM/DL (3.4-5.0) 2.3 GM/DL (3.4-5.0) 2.1 GM/DL (3.4-5.0) Calcium Level 8.5 MG/DL (8.5-10.1) 8.3 MG/DL (8.5-10.1) 8.2 MG/DL (8.5-10.1) Alkaline Phosphatase 645 U/L (45-117) 469 U/L (45-117) 378 U/L (45-117) Aspartate Amino Transf (AST/SGOT) 55 U/L (15-37) 38 U/L (15-37) 33 U/L (15-37) Alanine Aminotransferase (ALT/SGPT) 115 U/L (12-78) 88 U/L (12-78) 67 U/L (12-78) Total Bilirubin 8.5 MG/DL (0.2-1.0) 6.5 MG/DL (0.2-1.0) 5.5 MG/DL (0.2-1.0) Sodium Level 135 MEQ/L (136-145) 138 MEQ/L (136-145) 135 MEQ/L (136-145) Potassium Level 3.5 MEQ/L (3.5-5.1) 3.4 MEQ/L (3.5-5.1) 3.3 MEQ/L (3.5-5.1) Chloride Level 96 MEQ/L (98-107) 100 MEQ/L (98-107) 99 MEQ/L (98-107) Carbon Dioxide Level 29.5 MEQ/L (21.0-32.0) 30.1 MEQ/L (21.0-32.0) 28.7 MEQ/L (21.0-32.0) Anion Gap 10 MEQ/L (5-15) 8 MEQ/L (5-15) 7 MEQ/L (5-15) Estimat Glomerular Filtration Rate 187 ML/MIN (>89) 197 ML/MIN (>89) 220 ML/MIN (>89) Neutrophils (%) (Auto) 69.9 % (16.0-70.0) 70.6 % (16.0-70.0) Lymphocytes (%) (Auto) 16.5 % (9.0-44.0) 13.9 % (9.0-44.0) Monocytes (%) (Auto) 11.5 % (0.0-8.0) 10.5 % (0.0-8.0) Eosinophils (%) (Auto) 1.9 % (0.0-4.0) 4.6 % (0.0-4.0) Basophils (%) (Auto) 0.2 % (0.0-2.0) 0.4 % (0.0-2.0) Neutrophils # (Auto) 7.4 TH/MM3 (1.8-7.7) 6.2 TH/MM3 (1.8-7.7) Lymphocytes # (Auto) 1.8 TH/MM3 (1.0-4.8) 1.2 TH/MM3 (1.0-4.8) Monocytes # (Auto) 1.2 TH/MM3 (0-0.9) 0.9 TH/MM3 (0-0.9) Eosinophils # (Auto) 0.2 TH/MM3 (0-0.4) 0.4 TH/MM3 (0-0.4) Basophils # (Auto) 0.0 TH/MM3 (0-0.2) 0.0 TH/MM3 (0-0.2) CBC Comment DIFF FINAL AUTO DIFF Differential Comment AUTO DIFF CONFIRMED Platelet Estimate LOW (NORMAL) Platelet Morphology Comment NORMAL (NORMAL) Result Diagram: 10/09/17 0420 10/09/17 0420 Imaging Last Impressions Bile Duct Drainage 10/05/17 0000 Signed Impressions: Service Date/Time: Thursday, October 05, 2017 14:56 - CONCLUSION: Uncomplicated biliary stent placement as above. Brant Escamilla MD Abdomen/Pelvis CT 10/04/17 1107 Signed Impressions: Service Date/Time: October 14:03 - CONCLUSION: Findings suggest ill-defined mass in the head of the pancreas measuring 2.5 cm with associated dilation of the distal pancreatic duct, more dilation of the common hepatic duct and intrahepatic biliary ductal dilatation. Sebastian Suggs MD . Procedures * Biliary drain placement. Assessment and Plan Disease Oriented Problem List: (1) Hypertension (2) Anemia (3) Pancreatic adenocarcinoma (4) Hypothyroidism (5) Obstructive jaundice (6) Pancreatic cancer Symptom Scale: (1) Pain 0-10 Scale: 10 Comment: severe constant abdominal pain, temporary relief with PRN Dilaudid 1.5mg IV every 2 hours. . (2) Anorexia 0-10 Scale: Unable to quantify Comment: due to malignancy. (3) Constipation 0-10 Scale: Unable to quantify Comment: No BM recorded since admission, may be contributing to abdominal pain. Pertinent Non-Medical Issues Psychosocial: . Lives with his and granddaughter (Carolann, age 4 they have been raising since ) in [place]. Spiritual: Voodoo aleisha. Legal: Patient is capacitated to make his own decisions. If he loses capacity, according to [facility] statutes, health care proxy decision making would fall to his spouse. Ethical issues impacting care: No known concerns at this time. . Important Contacts * Iza German, : [phone] * Camron German, brother: [phone] . Prognosis Mr. German is a cachectic male with severe muscle wasting/ atrophy with pancreatic cancer found to have obstructive jaundice post biliary drain placement. Overall prognosis is poor. Hospice appropriate if goals are comfort oriented. . Code Status: No Code Plan * Patient is currently capacitated to make his own decisions. If he loses capacity, according to [facility] statutes, health care proxy decision making would fall to his spouse. * NO CODE * 10/09/17 - Met with patient and his , Iza at bedside. He is awake and participating in this conversation. He tells me he wants "fight the cancer." They report oncology was "not very positive today." He is not ready to consider hospice, though he is open to considering hospice in the future. He knows he is going to from this pancreatic cancer, but he is not ready to give up. He and his understand the likely disease progression, difficulties he faces in relation to pain, functional and nutritional issues, etc. He and his are going to speak more about hospice and are considering meeting with them prior to DC. He confirms desire for NO CODE. * SYMPTOMS: Abdominal pain: due to tumor and biliary obstruction, also has chronic back pain. Was on Methadone 20mg PO BID prior to admission. Currently on Methadone 20 mg PO every 8 hours ATC increased on 10/07/17 expect 72 hours before medication reaches full effect. Hydromorphone [employer] ASSISTANT has been ordered (no continuous rate with 0.5mg every 10 minutes PRN with 1 hour limit of 1mg). Will monitor need. Will need to monitor amount of Hydromorphone and eventually convert to order meds in prep for DC. Anorexia/ Cachexia: due to malignancy, significant muscle wasting, temporal wasting, weight loss 100 pounds in past year. Albumin 2.3. Constipation: Senna BID ATC. Has PRN MOM, Senokot, Dulcolax and Lactulose available. Encouraged dose today. * Palliative care will continue to follow to assist with communication, pain management and clarification of medical treatment goals as needed. . Attestation To help prompt me to consider important information that might be impacting today's encounter and assessment, information from prior notes written by myself or my colleagues may have been "brought forward" into today's note. My signature on this note, however, is an attestation that I personally performed the exam, history, and/or decision-making noted today, and, unless otherwise indicated, the interactions with patient, family, and staff as well as the review of records all occurred today. I also attest that the listed assessment and stated plan reflect my best clinical judgment today based on the combination of historical information, prior notes, and today's exam/ interactions. When time spent is documented, it refers only to time spent today by the signer, or if indicated, combined time spent today by collaborating physician/nurse practitioner. Porsha Lopez October 09, 2017 11:48
[2017-10-09] MEDS: HYDROmorphone HCL PCA 6 MG/30 ML IV SCH ×2 (12:01→22:59)
[2017-10-09] MEDS ORDERED: MIDAZOLAM HCL 2 MG/2 ML VIAL ONE ×2 (12:52)
[2017-10-09] MEDS ORDERED: LEVOFLOXACIN 500 MG PREMIX INJ 100 ML IV ONE (13:05)
[2017-10-09 13:53] LABS: INTERNATIONAL NORMALIZED RATIO 1.5 RATIO; PROTHROMBIN TIME - PATIENT 14.7 SEC (9.8-11.6)
--- NOTE | 2017-10-09 14:11 | HHI.FPPN ---
Subjective Remarks No acute events overnight. Patient's pain is a well controlled on ROOFER VINYL COATING pump. Feels significantly better today. Conversation was had about long-term prognosis of his pancreatic cancer. Patient and his state that their understanding is that the cancer is resectable, and that the purpose of chemotherapy would be to shrink the mass prior to resecting it. We expressed to the patient that our understanding from oncology's note is that the cancer is unresectable and the chemotherapy would be palliative. Family was very discouraged by this and emphatically state that they are under the impression the cancer is resectable. (Gerber Vance MD R1) Objective Vitals Vital Signs Date Time Temp Pulse Resp B/P (MAP) Pulse Ox O2 Delivery O2 Flow Rate FiO2 10/09/17 12:01 16 10/09/17 11:42 98.2 67 16 135/75 (95) 98 10/09/17 08:23 97.9 67 16 131/90 (104) 99 10/09/17 06:00 16 10/09/17 04:14 98.7 69 18 117/70 (86) 97 10/09/17 00:30 98.8 73 18 123/76 (92) 97 10/08/17 22:00 16 10/08/17 20:38 99.0 62 18 138/84 (102) 99 10/08/17 16:00 98.0 77 21 174/105 (128) 97 10/08/17 15:20 16 I/O 10/08/17 10/08/17 10/08/17 10/09/17 10/09/17 10/09/17 07:00 15:00 23:00 07:00 15:00 23:00 Intake Total 2360 ml 750 ml 1000 ml Output Total 850 ml 870 ml 850 ml 600 ml 490 ml Balance 1510 ml -120 ml 150 ml -600 ml -490 ml Intake Oral 360 ml IV Total 2000 ml 750 ml 1000 ml Output Urine Total 550 ml 870 ml 500 ml 400 ml 350 ml Drainage Total 300 ml 350 ml 200 ml 140 ml (Gerber Vance MD R1) Result Diagram: 10/09/17 0420 10/09/17 0420 Objective Remarks GENERAL: This is a cachectic, notably jaundiced male laying in bed in no acute distress CARDIOVASCULAR: Regular rate and rhythm without murmurs, gallops, or rubs. RESPIRATORY: Clear to auscultation. Breath sounds equal bilaterally. No wheezes , rales, or rhonchi. GASTROINTESTINAL: Abdomen soft, nondistended. Epigastric tenderness to palpation. No guarding. Biliary drain in place with overlying bandage clean dry and intact. MUSCULOSKELETAL: Extremities without clubbing, cyanosis, or edema. NEUROLOGICAL: Awake and alert. Motor and sensory grossly within normal limits. Normal speech. (Gerber Vance MD R1) A/P Assessment and Plan 61-year-old male with history of locally advanced pancreatic carcinoma, COPD, hypothyroidism presenting to the ED after being sent by his oncologist Dr. Lopez with concerns for obstructive jaundice. Said progressively worsening abdominal pain, discoloration of the skin, dark-colored urine, white stools. CT scan on admission showing ill-defined mass in the head of the pancreas with associated dilation of the distal pancreatic duct, dilation of the common hepatic duct and intrahepatic biliary ducts. GI and oncology consult. ERCP with stent placement was attempted but unsuccessful. Interventional radiology was consulted and placed a biliary drain on 10/05. Discharge Planning Pending pain control and management of his obstructive jaundice (Gerber Vance MD R1) Problem List: (1) Obstructive jaundice ICD Codes: K83.8 - Other specified diseases of biliary tract Status: Acute Plan: GI consulted-ERCP unable to be placed IR consulted for biliary drain placement. POD#4 Currently on methadone every 8 hours, now on Dilaudid ROOFER VINYL COATING pump with significant improvement in pain Liver enzymes continue to trend down postoperatively Interventional radiology to attempt stent placement and removal of biliary drain on 10/09 See pancreatic adenocarcinoma below (2) Pancreatic adenocarcinoma ICD Codes: C25.9 - Malignant neoplasm of pancreas, unspecified Plan: Patient with a known history of pancreatic adenocarcinoma, diagnosed in June 2017 Consulting oncology, Dr. Gore -Systemic chemotherapy in outpatient setting -Patient and are under the impression the mass is resectable. Per oncology's note the mass is unresectable. Will need further clarification if long-term goals are to be determined. Palliative care consult on 10/06. Consulted certified medical dosimetrist on 10/08 Oncology is considering celiac axis block for pain control, IR stated there is not enough adipose tissue for this to be done Adding Vistaril 25 mg every 8 hours as needed See plan for obstructive jaundice above (3) Anemia ICD Codes: D64.9 - Anemia, unspecified Status: Chronic Plan: Hemoglobin of 8.7, this is a drop from 10.3 on 10/08 Normal MCV, likely secondary to anemia of chronic disease We will continue to monitor (4) Thrombocytopenia ICD Codes: D69.6 - Thrombocytopenia, unspecified Plan: Patient noted to be thrombocytopenic on 10/09 platelet count of 99 Has decreased from 248 on 10/07 Coag profile and fibrinogen pending Heparin-induced platelet antibody pending We will hold Lovenox (5) Hypertension ICD Codes: I10 - Essential (primary) hypertension Status: Resolved Plan: Has been normotensive since adding amlodipine Continue amlodipine 2.5mg daily IV Vasotec available as needed for systolic blood pressures greater than 170, diastolic pressures greater than 100 (6) Hypothyroidism ICD Codes: E03.9 - Hypothyroidism, unspecified Plan: Known history of hypothyroidism Continue home levothyroxine (7) FEN Plan: Fluids: Maintenance fluids We will replace electrolytes as needed Holding Lovenox due to thrombocytopenia (Gerber Vance MD R1) Problem List: (1) Obstructive jaundice ICD Codes: K83.8 - Other specified diseases of biliary tract Status: Acute Plan: GI consulted-ERCP unable to be placed IR consulted for biliary drain placement. POD#4 Currently on methadone every 8 hours, now on Dilaudid ROOFER VINYL COATING pump with significant improvement in pain Liver enzymes continue to trend down postoperatively Interventional radiology to attempt stent placement and removal of biliary drain on 10/09 See pancreatic adenocarcinoma below (2) Pancreatic adenocarcinoma ICD Codes: C25.9 - Malignant neoplasm of pancreas, unspecified Plan: Patient with a known history of pancreatic adenocarcinoma, diagnosed in June 2017 Consulting oncology, Dr. Gore -Systemic chemotherapy in outpatient setting -Patient and are under the impression the mass is resectable. Per oncology's note the mass is unresectable. Will need further clarification if long-term goals are to be determined. Palliative care consult on 10/06. Consulted certified medical dosimetrist on 10/08 Oncology is considering celiac axis block for pain control, IR stated there is not enough adipose tissue for this to be done Adding Vistaril 25 mg every 8 hours as needed See plan for obstructive jaundice above (3) Anemia ICD Codes: D64.9 - Anemia, unspecified Status: Chronic Plan: Hemoglobin of 8.7, this is a drop from 10.3 on 10/08 Normal MCV, likely secondary to anemia of chronic disease We will continue to monitor (4) Thrombocytopenia ICD Codes: D69.6 - Thrombocytopenia, unspecified Plan: Patient noted to be thrombocytopenic on 10/09 platelet count of 99 Has decreased from 248 on 10/07 Coag profile and fibrinogen pending Heparin-induced platelet antibody pending We will hold Lovenox (5) Hypertension ICD Codes: I10 - Essential (primary) hypertension Status: Resolved Plan: Has been normotensive since adding amlodipine Continue amlodipine 2.5mg daily IV Vasotec available as needed for systolic blood pressures greater than 170, diastolic pressures greater than 100 (6) Hypothyroidism ICD Codes: E03.9 - Hypothyroidism, unspecified Plan: Known history of hypothyroidism Continue home levothyroxine (7) FEN Plan: Fluids: Maintenance fluids We will replace electrolytes as needed Holding Lovenox due to thrombocytopenia See the residents documentation for details. I saw and evaluated the patient regarding the ascencio portions of this evaluation and agree with the residents findings and plans as written. Parts of this note were created using [employer] voice recognition software program. While efforts were made to correct any mistakes made by this software, some mistakes, errors, and omissions may remain in the final note that were not caught when the note was originally created. Plan of care was discussed and agreed upon with the patient as specifically documented in the above note. An opportunity to ask questions with explanation was provided. Patient voiced understanding on all information reviewed and discussed. (Jakub Langley MD) Problem Qualifiers (1) Anemia: Qualified Codes: D64.9 - Anemia, unspecified Gerber Vance MD R1 October 09, 2017 14:11 Jakub Langley MD October 10, 2017 11:50
--- NOTE | 2017-10-09 14:20 | RADRPT ---
EXAM DATE/TIME: 10/09/2017 12:44 COMPARISON: CT ABDOMEN & PELVIS W CONTRAST, October 04, 2017, 14:03. BILIARY DRAINAGE W STENT PLACE, October 05, 2017, 1 4:56. INDICATIONS : Pancreatic cancer. Biliary obstruction. Patient presents with external biliary drain, here for metal stent placement to replace external drain. MEDICAL HISTORY : Herniated disc HTN Pancreatic cancer Hypothyroidism CHF COPD Melanoma (RUE and left hand) Migraines GERD SURGICAL HISTORY : Port placement (right) Melanoma removal RUE, left hand Inguinal hernia repair as child Pancreatic biopsy ENCOUNTER: [facility] ACUITY: 1 week PAIN SCORE: 6/10 LOCATION: Right lower quadrant FLUORO TIME: 3.7 minutes IMAGE SERIES: 1 SEDATION TIME: 30 minutes CONTRAST: 10 cc Omnipaque (iohexol) 350 MEDICATION(S): 1.) 3 mg midazolam (Versed) IV 2.) 150 mcg fentanyl (Sublimaze) IV DEVICE(S): 1.) Luminex 10x60 80cm metal stent PROCEDURE: The patient was placed supine on the procedure table. The existing biliary drainage catheter and surr ounding skin of the right upper quadrant were prepped as a sterile field. Under direct fluoroscopic g uidance, a stiff angled Glidewire was manipulated through the existing drainage catheter and into the duodenum. The drainage catheter was removed intact. Size for internal stent placement. A [address] by 6 cm length 7 Vietnamese vascular sheath was inserted. Tube cholangiography was performed. Measure ment was obtained to select a size for internal stent placement. A 10 mm diameter by 6 cm length next stent was introduced and deployed extending from the proximal common hepatic duct through the region of obstruction to the duodenum. Completion imaging revealed excellent positioning of the stent. The sheath and guidewire were removed. The access site was dressed with gauze bandages. The patient annette ated the procedure well and was taken to the recovery area in good stable condition. During the procedure, continuous hemodynamic, EKG and pulse oximetry monitoring was performed. Consci ous sedation was administered as above. CONCLUSION: Uncomplicated cholangiography with internal biliary stent placement as described. Narciso Akbar MD on October 09, 2017 at 14:08 Board Certified Radiologist. This report was verified electronically.
--- NOTE | 2017-10-09 16:48 | HHI.PR ---
Addendum to Inpatient Note Addendum Reason: Additional Documentation Additional Information Had discussion with Donna Jamison (Hematology) regarding patient's overall prognosis as well as recent thrombocytopenia. Patient may be candidate for outpatient chemotherapy if his pain is controlled and he is able to ambulate to his appointments. Family's expectations currently are consistent with prior expectations. As far as thrombocytopenia, hematology is less concerned for HIT and we will continue to trend daily CBCs. Okay with holding Lovenox for now. Gerber Vance MD R1 October 09, 2017 16:48
[2017-10-10] VITALS (10 sets, daily range): BP systolic 147–192; BP diastolic 81–113; PULSE 73–94; RESP 14–16; TEMP 98.5–99; O2SAT 96–98
[2017-10-10] MEDS: ENALAPRILAT 1.25 MG/ML VIAL IV PUSH PRN ×2 (01:00→08:09)
[2017-10-10] MEDS: SODIUM CHLORIDE 0.9% FLUSH 10 ML FLUSH IV FLUSH PRN (01:05)
[2017-10-10] MEDS: NS + KCL 20 MEQ INJ 1,000 ML IV SCH ×2 (01:45→04:42)
[2017-10-10 05:55] LABS: BASOPHIL % 0.3 % (0.0-2.0); EOSINOPHIL # 0.1 TH/MM3 (0-0.4); EOSINOPHIL % 0.9 % (0.0-4.0); HEMATOCRIT 28.7 % (39.0-51.0); HEMOGLOBIN 9.9 GM/DL (13.0-17.0); LYMPH % 7.8 % (9.0-44.0); LYMPHOCYTE # 0.9 TH/MM3 (1.0-4.8); MEAN CELL VOLUME 83.1 FL (80.0-100.0); MEAN CORPUSCULAR HEMOGLOBIN 28.6 PG (27.0-34.0); MEAN CORPUSCULAR HGB CONC 34.4 % (32.0-36.0); MEAN PLATELET VOLUME 9.9 FL (7.0-11.0); PLATELET COUNT 146 TH/MM3 (150-450); RED BLOOD COUNT 3.45 MIL/MM3 (4.50-5.90); RED CELL DISTRIBUTION WIDTH 14.4 % (11.6-17.2)
[2017-10-10] MEDS: PCA - TOTAL MG DILAUDID DELIVERED PER SHIFT OTHER SCH (05:55)
[2017-10-10] MEDS: LEVOTHYROXINE SODIUM 50 MCG TAB PO SCH (05:58)
[2017-10-10] MEDS: METHADONE HCL 10 MG TAB PO SCH (05:58)
[2017-10-10 06:18] LABS: ALBUMIN 2.3 GM/DL (3.4-5.0); AST (GOT) 51 U/L (15-37); BICARBONATE 27.4 MEQ/L (21.0-32.0); BLOOD UREA NITROGEN 7 MG/DL (7-18); CALCIUM 8.4 MG/DL (8.5-10.1); CHLORIDE 98 MEQ/L (98-107); CREATININE 0.36 MG/DL (0.60-1.30); GLOMERULAR FILTRATION RATE 249 ML/MIN (>89); GLUCOSE,RANDOM 105 MG/DL (74-106); SODIUM (NA) 135 MEQ/L (136-145)
[2017-10-10 06:19] LABS: ALT (GPT) 80 U/L (12-78)
[2017-10-10 06:21] LABS: ALKALINE PHOSPHATASE 494 U/L (45-117); TOTAL BILIRUBIN ADULT 6.6 MG/DL (0.2-1.0)
[2017-10-10] MEDS: amLODIPine BESYLATE 5 MG TAB PO SCH (08:09)
[2017-10-10] MEDS: FAMOTIDINE 20 MG TAB PO SCH (08:09)
[2017-10-10] MEDS: DOCUSATE SODIUM 50 MG/SENNA 8.6 MG TAB PO SCH (08:09)
[2017-10-10] MEDS: HYDROmorphone HCL PCA 6 MG/30 ML IV SCH (08:10)
[2017-10-10] MEDS: SODIUM CHLORIDE 0.9% FLUSH 10 ML FLUSH IV FLUSH SCH (09:00)
--- NOTE | 2017-10-10 11:00 | RADRPT ---
EXAM DATE/TIME: 10/10/2017 09:40 [facility] COMPARISON: CHOLANGIOGRAM THRU EXISTING CATHETER, October 09, 2017, 0:00. CT ABDOMEN & PELVIS W CONTRAST, October 04 18, 14:03. CHEST SINGLE AP, September 26, 2017, 6:41. INDICATIONS : Short of breath MEDICAL HISTORY : Hypertension. Hypothyroidism. pancreatic cancer, melanoma, CHF, COPD SURGICAL HISTORY : Port placement, inguinal hernia repair, melanoma removal, pancreas biopsy ENCOUNTER: Initial ACUITY: 4 - 6 days PAIN SCORE: 0/10 LOCATION: Bilateral chest FINDINGS: Right IJ [id number] in stable position. Very subtle right apical pneumothorax unchanged from prior exam. No new focal pleural or parenchymal opacities. Cardiomediastinal contours are stable. Remainde r of the exam is unchanged. CONCLUSION: 1. Stable very subtle right apical pneumothorax. 2. No acute abnormality or significant interval change. Rohit Nguyen MD on October 10, 2017 at 10:54 Board Certified Radiologist. This report was verified electronically.
--- NOTE | 2017-10-10 11:05 | HHI.FPPN ---
Subjective Remarks Patient seen and examined this morning. No acute events overnight. This morning, patient complains of worsening shortness of breath. He says he is unable to catch his breath. Worsening gradually overnight. States the pain is worsened as well. States the CELERY STRIPPER pump helps, but not very much. Patient's in the room, discussed with her prognosis and symptoms. Again confirmed with patient the DNR status. Still unsure about hospice for now. (Ty Baker MD R2) Objective Vitals Vital Signs Date Time Temp Pulse Resp B/P (MAP) Pulse Ox O2 Delivery O2 Flow Rate FiO2 10/10/17 08:10 28 10/10/17 05:55 16 10/10/17 04:38 98.9 73 16 161/97 (118) 96 10/10/17 02:37 75 16 147/81 (103) 96 10/10/17 01:57 169/95 (119) 10/10/17 01:07 185/103 (130) 10/10/17 00:57 179/108 (131) 10/10/17 00:48 176/99 (124) 10/10/17 00:46 99.0 73 16 185/102 (129) 98 10/09/17 22:59 16 10/09/17 22:00 16 10/09/17 19:42 98.9 79 18 163/98 (119) 99 10/09/17 16:53 16 10/09/17 16:45 97.4 74 16 175/96 (122) 97 10/09/17 14:20 69 18 142/72 (95) 94 10/09/17 13:50 63 17 144/74 (97) 93 10/09/17 13:35 97.7 63 16 147/87 (107) 95 10/09/17 12:01 16 10/09/17 11:42 98.2 67 16 135/75 (95) 98 I/O 10/09/17 10/09/17 10/09/17 10/10/17 10/10/17 10/10/17 07:00 15:00 23:00 07:00 15:00 23:00 Intake Total 240 ml 1240 ml Output Total 600 ml 490 ml 725 ml 300 ml 300 ml Balance -600 ml -490 ml -485 ml 940 ml -300 ml Intake Oral 240 ml 240 ml IV Total 1000 ml Output Urine Total 400 ml 350 ml 725 ml 300 ml 300 ml Drainage Total 200 ml 140 ml (Ty Baker MD R2) Result Diagram: 10/10/1742410/10/17424 Objective Remarks GENERAL: This is a cachectic, notably jaundiced male laying in bed in some distress due to pain and shortness of breath. CARDIOVASCULAR: Regular rate and rhythm without murmurs, gallops, or rubs. RESPIRATORY: Tachypneic. Diminished breath sounds auscultated anteriorly. GASTROINTESTINAL: Abdomen soft, nondistended. Epigastric tenderness to palpation. No guarding. Biliary drain in place with overlying bandage clean dry and intact. MUSCULOSKELETAL: Extremities without clubbing, cyanosis, or edema. NEUROLOGICAL: Awake and alert. Motor and sensory grossly within normal limits. Normal speech. (Ty Baker MD R2) A/P Assessment and Plan 61-year-old male with history of locally advanced pancreatic carcinoma, COPD, hypothyroidism presenting to the ED after being sent by his oncologist Dr. Lopez with concerns for obstructive jaundice. Said progressively worsening abdominal pain, discoloration of the skin, dark-colored urine, white stools. CT scan on admission showing ill-defined mass in the head of the pancreas with associated dilation of the distal pancreatic duct, dilation of the common hepatic duct and intrahepatic biliary ducts. GI and oncology consult. ERCP with stent placement was attempted but unsuccessful. Interventional radiology was consulted and placed a biliary drain on 10/05. Discharge Planning Pending pain control and management of his obstructive jaundice (Ty Baker MD R2) Problem List: (1) SOB (shortness of breath) ICD Codes: R06.02 - Shortness of breath Status: Acute Plan: Patient presenting with shortness of breath this morning. Unclear etiology, patient receiving Dilaudid CELERY STRIPPER, but has limit on it with no continuous rate. Does have a history of CHF and COPD -Check CXR, ABG -Oxygen PRN -Check troponin/EKG -Add Duonebs PRN (2) Obstructive jaundice ICD Codes: K83.8 - Other specified diseases of biliary tract Status: Acute Plan: GI consulted-ERCP unable to be placed IR consulted for biliary drain placement. POD#4 Currently on methadone every 8 hours, now on Dilaudid CELERY STRIPPER pump with significant improvement in pain Liver enzymes continue to trend down postoperatively Interventional radiology with stent placement and removal of biliary drain on 10/09 See pancreatic adenocarcinoma below (3) Pancreatic adenocarcinoma ICD Codes: C25.9 - Malignant neoplasm of pancreas, unspecified Plan: Patient with a known history of pancreatic adenocarcinoma, diagnosed in June 2017 Consulting oncology, Dr. Gore -Systemic chemotherapy in outpatient setting -Patient and are under the impression the mass is resectable. Per oncology's note the mass is unresectable. Will need further clarification if long-term goals are to be determined. Palliative care consult on 10/06. Consulted wine fermenter on 10/08 -Palliative care managing pain, currently on CELERY STRIPPER -Pt's clinical status may be worsening, appreciate goals of care discussion Oncology is considering celiac axis block for pain control, IR stated there is not enough adipose tissue for this to be done Adding Vistaril 25 mg every 8 hours as needed See plan for obstructive jaundice above (4) Anemia ICD Codes: D64.9 - Anemia, unspecified Status: Chronic Plan: Hgb down to 8.7, improving this morning. No signs of bleeding Normal MCV, likely secondary to anemia of chronic disease We will continue to monitor (5) Thrombocytopenia ICD Codes: D69.6 - Thrombocytopenia, unspecified Plan: Patient noted to be thrombocytopenic on 10/09 platelet count of 99. Improving up to 146 this AM Has decreased from 248 on 10/07 Coag profile and fibrinogen pending Heparin-induced platelet antibody pending Per heme/onc, unlikely HIT. Will continue lovenox for now (6) Hypertension ICD Codes: I10 - Essential (primary) hypertension Status: Resolved Plan: Elevated BPs, possibly from pain Continue amlodipine 2.5mg daily Will add metoprolol BID to help with BP and some anxiety as well. Hold for low HR IV Vasotec available as needed for systolic blood pressures greater than 170, diastolic pressures greater than 100 (7) Hypothyroidism ICD Codes: E03.9 - Hypothyroidism, unspecified Plan: Known history of hypothyroidism Continue home levothyroxine (8) FEN Plan: Fluids: Decrease IVF to 75mls/hr We will replace electrolytes as needed; Hypokalemia, replacing in fluids and orally Lovenox (Ty Baker MD R2) Problem List: (1) SOB (shortness of breath) ICD Codes: R06.02 - Shortness of breath Status: Acute Plan: Patient presenting with shortness of breath this morning. Unclear etiology, patient receiving Dilaudid CELERY STRIPPER, but has limit on it with no continuous rate. Does have a history of CHF and COPD -Check CXR, ABG -Oxygen PRN -Check troponin/EKG -Add Duonebs PRN (2) Obstructive jaundice ICD Codes: K83.8 - Other specified diseases of biliary tract Status: Acute Plan: GI consulted-ERCP unable to be placed IR consulted for biliary drain placement. POD#4 Currently on methadone every 8 hours, now on Dilaudid CELERY STRIPPER pump with significant improvement in pain Liver enzymes continue to trend down postoperatively Interventional radiology with stent placement and removal of biliary drain on 10/09 See pancreatic adenocarcinoma below (3) Pancreatic adenocarcinoma ICD Codes: C25.9 - Malignant neoplasm of pancreas, unspecified Plan: Patient with a known history of pancreatic adenocarcinoma, diagnosed in June 2017 Consulting oncology, Dr. Gore -Systemic chemotherapy in outpatient setting -Patient and are under the impression the mass is resectable. Per oncology's note the mass is unresectable. Will need further clarification if long-term goals are to be determined. Palliative care consult on 10/06. Consulted wine fermenter on 10/08 -Palliative care managing pain, currently on CELERY STRIPPER -Pt's clinical status may be worsening, appreciate goals of care discussion Oncology is considering celiac axis block for pain control, IR stated there is not enough adipose tissue for this to be done Adding Vistaril 25 mg every 8 hours as needed See plan for obstructive jaundice above (4) Anemia ICD Codes: D64.9 - Anemia, unspecified Status: Chronic Plan: Hgb down to 8.7, improving this morning. No signs of bleeding Normal MCV, likely secondary to anemia of chronic disease We will continue to monitor (5) Thrombocytopenia ICD Codes: D69.6 - Thrombocytopenia, unspecified Plan: Patient noted to be thrombocytopenic on 10/09 platelet count of 99. Improving up to 146 this AM Has decreased from 248 on 10/07 Coag profile and fibrinogen pending Heparin-induced platelet antibody pending Per heme/onc, unlikely HIT. Will continue lovenox for now (6) Hypertension ICD Codes: I10 - Essential (primary) hypertension Status: Resolved Plan: Elevated BPs, possibly from pain Continue amlodipine 2.5mg daily Will add metoprolol BID to help with BP and some anxiety as well. Hold for low HR IV Vasotec available as needed for systolic blood pressures greater than 170, diastolic pressures greater than 100 (7) Hypothyroidism ICD Codes: E03.9 - Hypothyroidism, unspecified Plan: Known history of hypothyroidism Continue home levothyroxine (8) FEN Plan: Fluids: Decrease IVF to 75mls/hr We will replace electrolytes as needed; Hypokalemia, replacing in fluids and orally Lovenox See the residents documentation for details. I saw and evaluated the patient regarding the ascencio portions of this evaluation and agree with the residents findings and plans as written. Parts of this note were created using [employer] voice recognition software program. While efforts were made to correct any mistakes made by this software, some mistakes, errors, and omissions may remain in the final note that were not caught when the note was originally created. Plan of care was discussed and agreed upon with the patient as specifically documented in the above note. An opportunity to ask questions with explanation was provided. Patient voiced understanding on all information reviewed and discussed. (Jakub Langley MD) Problem Qualifiers (1) Anemia: Qualified Codes: D64.9 - Anemia, unspecified Ty Baker MD R2 October 10, 2017 11:05 Jakub Langley MD October 10, 2017 12:21
[2017-10-10] MEDS ORDERED: RESP: ALBUTEROL 2.5 MG/IPRATROPIUM 0.5 MG NEB (PRN) NEB (11:15)
--- NOTE | 2017-10-10 11:28 | PD.ONC.PN ---
Subjective Subjective Remarks Afebrile Pt reports his pain is much worse today States he initially felt better yesterday after the procedure and was able to eat but today he states even breathing exacerbates the pain Pt seen along with palliative care team Agrees to talk to Hospice today to consider what they can offer Objective Data Date Time Temp Pulse Resp B/P (MAP) Pulse Ox O2 Delivery O2 Flow Rate FiO2 10/10/17 08:10 28 10/10/17 05:55 16 10/10/17 04:38 98.9 73 16 161/97 (118) 96 10/10/17 02:37 75 16 147/81 (103) 96 10/10/17 01:57 169/95 (119) 10/10/17 01:07 185/103 (130) 10/10/17 00:57 179/108 (131) 10/10/17 00:48 176/99 (124) 10/10/17 00:46 99.0 73 16 185/102 (129) 98 10/09/17 22:59 16 10/09/17 22:00 16 10/09/17 19:42 98.9 79 18 163/98 (119) 99 10/09/17 16:53 16 10/09/17 16:45 97.4 74 16 175/96 (122) 97 10/09/17 14:20 69 18 142/72 (95) 94 10/09/17 13:50 63 17 144/74 (97) 93 10/09/17 13:35 97.7 63 16 147/87 (107) 95 10/09/17 12:01 16 10/09/17 11:42 98.2 67 16 135/75 (95) 98 10/10/17 10/10/17 10/10/17 07:00 15:00 23:00 Intake Total 1240 ml Output Total 300 ml 300 ml Balance 940 ml -300 ml Result Diagram: 10/10/17 0425 10/10/17 0425 Laboratory Results Laboratory Tests Test 10/09/17 12:21 10/09/17 15:25 10/10/17 04:25 10/10/17 10:54 Prothrombin Time 14.7 SEC Prothromb Time International Ratio 1.5 RATIO Activated Partial Thromboplast Time 31.1 SEC Fibrinogen 419 mg/dL White Blood Count 11.0 TH/MM3 Red Blood Count 3.45 MIL/MM3 Hemoglobin 9.9 GM/DL Hematocrit 28.7 % Mean Corpuscular Volume 83.1 FL Mean Corpuscular Hemoglobin 28.6 PG Mean Corpuscular Hemoglobin Concent 34.4 % Red Cell Distribution Width 14.4 % Platelet Count 146 TH/MM3 Mean Platelet Volume 9.9 FL Neutrophils (%) (Auto) 82.0 % Lymphocytes (%) (Auto) 7.8 % Monocytes (%) (Auto) 9.0 % Eosinophils (%) (Auto) 0.9 % Basophils (%) (Auto) 0.3 % Neutrophils # (Auto) 9.0 TH/MM3 Lymphocytes # (Auto) 0.9 TH/MM3 Monocytes # (Auto) 1.0 TH/MM3 Eosinophils # (Auto) 0.1 TH/MM3 Basophils # (Auto) 0.0 TH/MM3 CBC Comment DIFF FINAL Differential Comment Blood Urea Nitrogen 7 MG/DL Creatinine 0.36 MG/DL Random Glucose 105 MG/DL Total Protein 6.0 GM/DL Albumin 2.3 GM/DL Calcium Level 8.4 MG/DL Alkaline Phosphatase 494 U/L Aspartate Amino Transf (AST/SGOT) 51 U/L Alanine Aminotransferase (ALT/SGPT) 80 U/L Total Bilirubin 6.6 MG/DL Sodium Level 135 MEQ/L Potassium Level 3.2 MEQ/L Chloride Level 98 MEQ/L Carbon Dioxide Level 27.4 MEQ/L Anion Gap 10 MEQ/L Estimat Glomerular Filtration Rate 249 ML/MIN Blood Gas Puncture Site RT RADIAL Blood Gas Patient Temperature 98.6 Blood Gas HCO3 27 mmol/L Blood Gas Base Excess 2.8 mmol/L Blood Gas Oxygen Saturation 91 % Arterial Blood pH 7.41 Arterial Blood Partial Pressure CO2 44 mmHg Arterial Blood Partial Pressure O2 68 mmHg Arterial Blood Oxygen Content 16.8 Vol % Arterial Blood Carboxyhemoglobin 1.7 % Arterial Blood Methemoglobin 1.3 % Blood Gas Hemoglobin 13.2 G/DL Imaging Studies Last 24 hours Impressions Chest X-Ray 10/10/17 0000 Signed Impressions: Service Date/Time: Tuesday, October 10, 2017 09:40 - CONCLUSION: 1. Stable very subtle right apical pneumothorax. 2. No acute abnormality or significant interval change. Rohit Nguyen MD Administered Medications Medications (Trade) Dose Ordered Sig/Nikia Route PRN Reason Start Time Stop Time Status Last Admin Dose Admin Sodium Chloride (NS Flush) 2 ml UNSCH PRN IV FLUSH FLUSH AFTER USING IV ACCESS 10/04/17 15:00 10/10/17 01:05 Sodium Chloride (NS Flush) 2 ml BID IV FLUSH 10/04/17 21:00 10/09/17 19:35 Senna/Docusate Sodium (Alysha-Colace) 1 tab BID PO 10/05/17 09:00 10/10/17 08:09 Magnesium Hydroxide (Milk Of Magnesia Liq) 30 ml Q12H PRN PO Mild constipation 10/04/17 15:00 10/07/17 09:22 Lactulose (Lactulose Liq) 30 ml DAILY PRN PO SEVERE CONSITIPATION 10/04/17 15:00 10/09/17 19:40 Levothyroxine Sodium (Synthroid) 50 mcg DAILY@0600 PO 10/05/17 06:00 10/10/17 05:58 Famotidine (Pepcid) 20 mg BID PO 10/04/17 21:00 10/10/17 08:09 Enalaprilat (Vasotec Inj) 1.25 mg Q6H PRN IV PUSH SEE LABEL COMMENTS 10/04/17 15:45 10/10/17 08:09 Potassium Chloride/Sodium Chloride 1,000 ml @ 75 mls/hr [id number] IV 10/05/17 12:00 10/10/17 04:42 Enoxaparin Sodium (Lovenox Inj) 40 mg Q24H SQ 10/06/17 16:00 Future hold 10/07/17 13:33 Methadone HCl (Dolophine) 20 mg Q8HR PO 10/07/17 09:00 10/10/17 05:58 Amlodipine Besylate (Norvasc) 2.5 mg DAILY PO 10/07/17 11:15 10/10/17 08:09 Hydromorphone HCl (Dilaudid DIGITAL PROGRAM MANAGER Inj) 6 mg UNSCH IV 10/08/17 13:15 10/10/17 08:10 DIGITAL PROGRAM MANAGER Dosage Infused (Pha) 1 Q8HR OTHER 10/08/17 14:00 10/10/17 05:55 Objective Remarks GENERAL: Older male resting in bed. He is wincing and appears painful. SKIN: Warm and dry. HEAD: Normocephalic. EYES: No injection or drainage. NECK: Supple, trachea midline. CARDIOVASCULAR: Regular rate and rhythm. +murmur RESPIRATORY: Clear, diminished anteriorly. Somewhat tachypneic GASTROINTESTINAL: Exquisitely tender to palpation. EXTREMITIES: No cyanosis, or edema. MUSCULOSKELETAL: Generalized weakness. Extreme muscle wasting NEUROLOGICAL: No obvious focal deficit. Awake, alert, and oriented x3. Assessment/Plan Assessment 61-year-old male with unresectable pancreatic cancer admitted with obstructive jaundice Plan 1. Patient considering hospice; agrees to speak with them today. I think this is probably the best course of action as he is extremely debilitated and I do not foresee him being physically able to withstand chemotherapy in the near future. 2. Pain not well controlled. Agree with increasing Dilaudid DIGITAL PROGRAM MANAGER and adding antianxiety. Defer to palliative care for pain management. 3. Supportive care Angeline Patterson October 10, 2017 11:28
[2017-10-10] MEDS ORDERED: LORazepam 2 MG/ML VIAL IV PUSH PRN (11:30)
--- NOTE | 2017-10-10 11:40 | EKG ---
Date Performed: 10/10/2017 Time Performed: 10:36:01 PTAGE: 61 years EKG: Sinus rhythm WITH SHORT CT INTERVAL INFERIOR MYOCARDIAL INFARCTION , PROBABLY OLD MODERATE T-WAVE ABNORMALITY, CO NSIDER ANTEROLATERAL ISCHEMIA ABNORMAL ECG PREVIOUS TRACING : 09/26/2017 06.52 DOCTOR: Oumar Frye Interpretating Date/Time 10/10/2017 11:38:23
--- NOTE | 2017-10-10 11:48 | HHI.HCPN ---
Reason for visit a. To assist with evaluation and management of symptoms including: severe abdominal pain, anorexia/ cachexia, constipation. b. To assist medical decision maker(s) with: better understanding of current medical conditions; weighing benefits/burdens of medical treatment options; making medical treatment decisions. . Subjective/Interval History Patient seen and examined in room. at bedside. Also present SHARON BruceW and Angeline Patterson, [facility] oncology. Patient is awake and alert. He is having more abdominal pain, rates 10/10. He does not think the Hydromorphone is helping as much since last night. Post internalization of biliary stent on . Hypertensive and tachypneic this morning. He feels anxious. His color is dusky. Abdomen firm and tender. No BM recorded since admission, post Lactulose 10/09/17 PM. He is passing gas. He feels like he could have a bowel movement now. Has PRN meds available, encouraged use if no BM. Patient would like to meet with hospice, is considering hospice services for pain control. He reports his desire to have pain controlled even if that means he is more sleepy. He does not want to have this severe pain. He does hope he can enjoy some quality time with his , Iza and granddaughter, Carolann. He hopes to eat. He and his both verbalize that he is not likely to be able to get chemotherapy. If he is unable to get treatment he wants to be comfortable. He verbalizes frustration because he wants to "fight" though is realistic and is ready to meet with hospice. . Family/friend interactions See interval note. 12n: Call from brother, Camron German. Medical update provided. Questions answered. Advance Directives Living Will: Never completed Health Care Surrogate: Never completed Durable Power of General Internist And Physician Leader: Never completed Advance Directive Specifics Health Care Surrogate(s): Patient is currently capacitated to make his own decisions. If he loses capacity , according to [facility] statutes, health care proxy decision making would fall to his spouse. . Documented care wishes: None. Significant change in goals: NO CODE. Wants to meet with hospice for hospice care center placement for management of severe abdominal pain. . Objective Vital Signs Date Time Temp Pulse Resp B/P (MAP) Pulse Ox O2 Delivery O2 Flow Rate FiO2 10/10/17 08:10 28 10/10/17 05:55 16 10/10/17 04:38 98.9 73 16 161/97 (118) 96 10/10/17 02:37 75 16 147/81 (103) 96 10/10/17 01:57 169/95 (119) 10/10/17 01:07 185/103 (130) 10/10/17 00:57 179/108 (131) 10/10/17 00:48 176/99 (124) 10/10/17 00:46 99.0 73 16 185/102 (129) 98 10/09/17 22:59 16 10/09/17 22:00 16 10/09/17 19:42 98.9 79 18 163/98 (119) 99 10/09/17 16:53 16 10/09/17 16:45 97.4 74 16 175/96 (122) 97 10/09/17 14:20 69 18 142/72 (95) 94 10/09/17 13:50 63 17 144/74 (97) 93 10/09/17 13:35 97.7 63 16 147/87 (107) 95 10/09/17 12:01 16 10/09/17 11:42 98.2 67 16 135/75 (95) 98 Intake & Output 10/10/17 10/10/17 07:00 19:00 Intake Total 1480 ml Output Total 800 ml 300 ml Balance 680 ml -300 ml Intake Oral 480 ml IV Total 1000 ml Output Urine Total 800 ml 300 ml Physical Exam CONSTITUTIONAL/GENERAL: This is a cachectic patient, writhing in pain. TUBES/LINES/DRAINS: right port, biliary drain. SKIN: + jaundice. Color appears dusky today. Ecchymoses on upper extremities. Skin temperature appropriate. Not diaphoretic. EYES: + scleral icterus. CARDIOVASCULAR: Tachycardic. Murmur noted. RESPIRATORY/CHEST: Labored respirations at rest with pain. GASTROINTESTINAL: Abdomen diffuse tenderness to light palpation, nondistended. No guarding. Bowel sounds hypoactive. GENITOURINARY: Without palpable bladder distension. Dark urine noted in urinal. MUSCULOSKELETAL: No mottling or clubbing. NEUROLOGICAL: Awake and alert. Follows commands. PSYCHIATRIC: Difficultly focusing on conversation due to severe abdominal pain. . Diagnostic Tests Laboratory Laboratory Tests Test 10/08/17 03:10 10/09/17 04:20 10/09/17 12:21 10/09/17 15:25 White Blood Count 10.6 TH/MM3 (4.0-11.0) 8.8 TH/MM3 (4.0-11.0) Red Blood Count 3.57 MIL/MM3 (4.50-5.90) 3.03 MIL/MM3 (4.50-5.90) Hemoglobin 10.3 GM/DL (13.0-17.0) 8.7 GM/DL (13.0-17.0) Hematocrit 29.8 % (39.0-51.0) 25.2 % (39.0-51.0) Mean Corpuscular Volume 83.6 FL (80.0-100.0) 83.4 FL (80.0-100.0) Mean Corpuscular Hemoglobin 29.0 PG (27.0-34.0) 28.6 PG (27.0-34.0) Mean Corpuscular Hemoglobin Concent 34.7 % (32.0-36.0) 34.3 % (32.0-36.0) Red Cell Distribution Width 14.7 % (11.6-17.2) 14.2 % (11.6-17.2) Platelet Count 174 TH/MM3 (150-450) 99 TH/MM3 (150-450) Mean Platelet Volume 9.8 FL (7.0-11.0) 10.0 FL (7.0-11.0) Neutrophils (%) (Auto) 69.9 % (16.0-70.0) 70.6 % (16.0-70.0) Lymphocytes (%) (Auto) 16.5 % (9.0-44.0) 13.9 % (9.0-44.0) Monocytes (%) (Auto) 11.5 % (0.0-8.0) 10.5 % (0.0-8.0) Eosinophils (%) (Auto) 1.9 % (0.0-4.0) 4.6 % (0.0-4.0) Basophils (%) (Auto) 0.2 % (0.0-2.0) 0.4 % (0.0-2.0) Neutrophils # (Auto) 7.4 TH/MM3 (1.8-7.7) 6.2 TH/MM3 (1.8-7.7) Lymphocytes # (Auto) 1.8 TH/MM3 (1.0-4.8) 1.2 TH/MM3 (1.0-4.8) Monocytes # (Auto) 1.2 TH/MM3 (0-0.9) 0.9 TH/MM3 (0-0.9) Eosinophils # (Auto) 0.2 TH/MM3 (0-0.4) 0.4 TH/MM3 (0-0.4) Basophils # (Auto) 0.0 TH/MM3 (0-0.2) 0.0 TH/MM3 (0-0.2) CBC Comment DIFF FINAL AUTO DIFF Differential Comment AUTO DIFF CONFIRMED Blood Urea Nitrogen 8 MG/DL (7-18) 8 MG/DL (7-18) Creatinine 0.44 MG/DL (0.60-1.30) 0.40 MG/DL (0.60-1.30) Random Glucose 92 MG/DL (74-106) 79 MG/DL (74-106) Total Protein 6.0 GM/DL (6.4-8.2) 5.4 GM/DL (6.4-8.2) Albumin 2.3 GM/DL (3.4-5.0) 2.1 GM/DL (3.4-5.0) Calcium Level 8.3 MG/DL (8.5-10.1) 8.2 MG/DL (8.5-10.1) Alkaline Phosphatase 469 U/L (45-117) 378 U/L (45-117) Aspartate Amino Transf (AST/SGOT) 38 U/L (15-37) 33 U/L (15-37) Alanine Aminotransferase (ALT/SGPT) 88 U/L (12-78) 67 U/L (12-78) Total Bilirubin 6.5 MG/DL (0.2-1.0) 5.5 MG/DL (0.2-1.0) Sodium Level 138 MEQ/L (136-145) 135 MEQ/L (136-145) Potassium Level 3.4 MEQ/L (3.5-5.1) 3.3 MEQ/L (3.5-5.1) Chloride Level 100 MEQ/L (98-107) 99 MEQ/L (98-107) Carbon Dioxide Level 30.1 MEQ/L (21.0-32.0) 28.7 MEQ/L (21.0-32.0) Anion Gap 8 MEQ/L (5-15) 7 MEQ/L (5-15) Estimat Glomerular Filtration Rate 197 ML/MIN (>89) 220 ML/MIN (>89) Platelet Estimate LOW (NORMAL) Platelet Morphology Comment NORMAL (NORMAL) Prothrombin Time 14.7 SEC (9.8-11.6) Prothromb Time International Ratio 1.5 RATIO Activated Partial Thromboplast Time 31.1 SEC (24.3-30.1) Fibrinogen 419 mg/dL (227-377) Test 10/10/17 04:25 10/10/17 10:54 White Blood Count 11.0 TH/MM3 (4.0-11.0) Red Blood Count 3.45 MIL/MM3 (4.50-5.90) Hemoglobin 9.9 GM/DL (13.0-17.0) Hematocrit 28.7 % (39.0-51.0) Mean Corpuscular Volume 83.1 FL (80.0-100.0) Mean Corpuscular Hemoglobin 28.6 PG (27.0-34.0) Mean Corpuscular Hemoglobin Concent 34.4 % (32.0-36.0) Red Cell Distribution Width 14.4 % (11.6-17.2) Platelet Count 146 TH/MM3 (150-450) Mean Platelet Volume 9.9 FL (7.0-11.0) Neutrophils (%) (Auto) 82.0 % (16.0-70.0) Lymphocytes (%) (Auto) 7.8 % (9.0-44.0) Monocytes (%) (Auto) 9.0 % (0.0-8.0) Eosinophils (%) (Auto) 0.9 % (0.0-4.0) Basophils (%) (Auto) 0.3 % (0.0-2.0) Neutrophils # (Auto) 9.0 TH/MM3 (1.8-7.7) Lymphocytes # (Auto) 0.9 TH/MM3 (1.0-4.8) Monocytes # (Auto) 1.0 TH/MM3 (0-0.9) Eosinophils # (Auto) 0.1 TH/MM3 (0-0.4) Basophils # (Auto) 0.0 TH/MM3 (0-0.2) CBC Comment DIFF FINAL Differential Comment Blood Urea Nitrogen 7 MG/DL (7-18) Creatinine 0.36 MG/DL (0.60-1.30) Random Glucose 105 MG/DL (74-106) Total Protein 6.0 GM/DL (6.4-8.2) Albumin 2.3 GM/DL (3.4-5.0) Calcium Level 8.4 MG/DL (8.5-10.1) Alkaline Phosphatase 494 U/L (45-117) Aspartate Amino Transf (AST/SGOT) 51 U/L (15-37) Alanine Aminotransferase (ALT/SGPT) 80 U/L (12-78) Total Bilirubin 6.6 MG/DL (0.2-1.0) Sodium Level 135 MEQ/L (136-145) Potassium Level 3.2 MEQ/L (3.5-5.1) Chloride Level 98 MEQ/L (98-107) Carbon Dioxide Level 27.4 MEQ/L (21.0-32.0) Anion Gap 10 MEQ/L (5-15) Estimat Glomerular Filtration Rate 249 ML/MIN (>89) Blood Gas Puncture Site RT RADIAL Blood Gas Patient Temperature 98.6 Blood Gas HCO3 27 mmol/L (22-26) Blood Gas Base Excess 2.8 mmol/L (-2-2) Blood Gas Oxygen Saturation 91 % (90-100) Arterial Blood pH 7.41 (7.380-7.420) Arterial Blood Partial Pressure CO2 44 mmHg (38-42) Arterial Blood Partial Pressure O2 68 mmHg (61-120) Arterial Blood Oxygen Content 16.8 Vol % (12.0-20.0) Arterial Blood Carboxyhemoglobin 1.7 % (0-4) Arterial Blood Methemoglobin 1.3 % (0-2) Blood Gas Hemoglobin 13.2 G/DL (12.0-16.0) Result Diagram: 10/10/17 0425 10/10/17 0425 Imaging Last Impressions Chest X-Ray 10/10/17 0000 Signed Impressions: Service Date/Time: Tuesday, October 10, 2017 09:40 - CONCLUSION: 1. Stable very subtle right apical pneumothorax. 2. No acute abnormality or significant interval change. Rohit Nguyen MD Bilary Stent Insertion 10/09/17 0000 Signed Impressions: Service Date/Time: Monday, October 09, 2017 12:44 - CONCLUSION: Uncomplicated cholangiography with internal biliary stent placement as described. Narciso Akbar MD Bile Duct Drainage 10/05/17 0000 Signed Impressions: Service Date/Time: Thursday, October 05, 2017 14:56 - CONCLUSION: Uncomplicated biliary stent placement as above. Brant Escamilla MD Abdomen/Pelvis CT 10/04/17 1107 Signed Impressions: Service Date/Time: October 14:03 - CONCLUSION: Findings suggest ill-defined mass in the head of the pancreas measuring 2.5 cm with associated dilation of the distal pancreatic duct, more dilation of the common hepatic duct and intrahepatic biliary ductal dilatation. Sebastian Suggs MD Procedures * 10/09/17 - internalization of biliary stent. * Biliary drain placement. Assessment and Plan Disease Oriented Problem List: (1) Hypertension (2) Anemia (3) Pancreatic adenocarcinoma (4) Hypothyroidism (5) Obstructive jaundice (6) Pancreatic cancer Symptom Scale: (1) Pain 0-10 Scale: 10 Comment: severe constant abdominal pain, temporary relief with PRN Dilaudid WATER RESOURCE PROJECT MANAGER 0.5mg with 1mg lock out every hour. . (2) Anorexia 0-10 Scale: Unable to quantify Comment: due to malignancy. (3) Constipation 0-10 Scale: Unable to quantify Comment: No BM recorded since admission, may be contributing to abdominal pain. Pertinent Non-Medical Issues Psychosocial: . Lives with his and granddaughter (Carolann, age 4 they have been raising since ) in [place]. Spiritual: [employer] ale[employer]. Legal: Patient is capacitated to make his own decisions. If he loses capacity, according to [facility] statutes, health care proxy decision making would fall to his spouse. Ethical issues impacting care: No known concerns at this time. . Important Contacts * Iza German, : [phone] * Camron German, brother: [phone] . Prognosis Mr. German is a cachectic male with severe muscle wasting/ atrophy with pancreatic cancer found to have obstructive jaundice post biliary drain placement. Overall prognosis is poor. Hospice appropriate if goals are comfort oriented. . Code Status: No Code Plan * Patient is currently capacitated to make his own decisions. If he loses capacity, according to [facility] statutes, health care proxy decision making would fall to his spouse. * NO CODE * 10/10/17 - Met with patient and his , Iza at bedside. Patient would like to meet with hospice. He desires pain control and hospice care center placement. * Hospice consulted. * Spoke with JC Márquez and hospice admission nurse, Tresa. * SYMPTOMS: Abdominal pain: due to tumor and biliary obstruction, also has chronic back pain. Was on Methadone 20mg PO BID prior to admission. Currently on Methadone 20 mg PO every 8 hours ATC increased on 10/07/17 expect 72 hours before medication reaches full effect. Hydromorphone WATER RESOURCE PROJECT MANAGER has been ordered (no continuous rate with 0.5mg every 10 minutes PRN with 1 hour limit of 1mg). Will need adjustments of pain meds. Likely increase PRN Hydromorphone and ATC Methadone. Will add Lorazepam for anxiety related to pain. He and agree. Anorexia/ Cachexia: due to malignancy, significant muscle wasting, temporal wasting, weight loss 100 pounds in past year. Albumin 2.3. Constipation: Senna BID ATC. Has PRN MOM, Senokot, Dulcolax and Lactulose available. Feels like he needs to go today. * Palliative care will continue to follow to assist with communication, pain management and clarification of medical treatment goals as needed. . Attestation To help prompt me to consider important information that might be impacting today's encounter and assessment, information from prior notes written by myself or my colleagues may have been "brought forward" into today's note. My signature on this note, however, is an attestation that I personally performed the exam, history, and/or decision-making noted today, and, unless otherwise indicated, the interactions with patient, family, and staff as well as the review of records all occurred today. I also attest that the listed assessment and stated plan reflect my best clinical judgment today based on the combination of historical information, prior notes, and today's exam/ interactions. When time spent is documented, it refers only to time spent today by the signer, or if indicated, combined time spent today by collaborating physician/nurse practitioner. Porsha Lopez October 10, 2017 11:48
[2017-10-10] MEDS ORDERED: POTASSIUM CHLORIDE 10 MEQ CONTROLLED RELEASE TAB PO ONE (12:00)
[2017-10-10 16:23] LABS: HEPARIN INDUCED PLATELET AB NEGATIVE (NEGATIVE)
[2017-10-10] MEDS ORDERED: METOPROLOL TARTRATE 25 MG TAB PO SCH (21:00)
--- NOTE | 2017-10-11 14:49 | HHI.DS ---
Discharge Summary Admission Date October 04, 2017 at 13:36 Admitting Diagnosis (1) SOB (shortness of breath) Plan: Patient presenting with shortness of breath this morning. Unclear etiology, patient receiving Dilaudid ACADEMIC ADVISER, but has limit on it with no continuous rate. Does have a history of CHF and COPD -Check CXR, ABG -Oxygen PRN -Check troponin/EKG -Add Duonebs PRN ICD Codes: R06.02 - Shortness of breath Status: Acute (2) Obstructive jaundice Plan: GI consulted-ERCP unable to be placed IR consulted for biliary drain placement. POD#4 Currently on methadone every 8 hours, now on Dilaudid ACADEMIC ADVISER pump with significant improvement in pain Liver enzymes continue to trend down postoperatively Interventional radiology with stent placement and removal of biliary drain on 10/09 See pancreatic adenocarcinoma below ICD Codes: K83.8 - Other specified diseases of biliary tract Status: Acute (3) Pancreatic adenocarcinoma Plan: Patient with a known history of pancreatic adenocarcinoma, diagnosed in June 2017 Consulting oncology, Dr. Gore -Systemic chemotherapy in outpatient setting -Patient and are under the impression the mass is resectable. Per oncology's note the mass is unresectable. Will need further clarification if long-term goals are to be determined. Palliative care consult on 10/06. Consulted milk of lime slaker on 10/08 -Palliative care managing pain, currently on ACADEMIC ADVISER -Pt's clinical status may be worsening, appreciate goals of care discussion Oncology is considering celiac axis block for pain control, IR stated there is not enough adipose tissue for this to be done Adding Vistaril 25 mg every 8 hours as needed See plan for obstructive jaundice above ICD Codes: C25.9 - Malignant neoplasm of pancreas, unspecified (4) Anemia Plan: Hgb down to 8.7, improving this morning. No signs of bleeding Normal MCV, likely secondary to anemia of chronic disease We will continue to monitor ICD Codes: D64.9 - Anemia, unspecified Status: Chronic (5) Thrombocytopenia Plan: Patient noted to be thrombocytopenic on 10/09 platelet count of 99. Improving up to 146 this AM Has decreased from 248 on 10/07 Coag profile and fibrinogen pending Heparin-induced platelet antibody pending Per heme/onc, unlikely HIT. Will continue lovenox for now ICD Codes: D69.6 - Thrombocytopenia, unspecified (6) Hypertension Plan: Elevated BPs, possibly from pain Continue amlodipine 2.5mg daily Will add metoprolol BID to help with BP and some anxiety as well. Hold for low HR IV Vasotec available as needed for systolic blood pressures greater than 170, diastolic pressures greater than 100 ICD Codes: I10 - Essential (primary) hypertension Status: Resolved (7) Hypothyroidism Plan: Known history of hypothyroidism Continue home levothyroxine ICD Codes: E03.9 - Hypothyroidism, unspecified (8) FEN Plan: Fluids: Decrease IVF to 75mls/hr We will replace electrolytes as needed; Hypokalemia, replacing in fluids and orally Lovenox See the residents documentation for details. I saw and evaluated the patient regarding the ascencio portions of this evaluation and agree with the residents findings and plans as written. Parts of this note were created using [employer] voice recognition software program. While efforts were made to correct any mistakes made by this software, some mistakes, errors, and omissions may remain in the final note that were not caught when the note was originally created. Plan of care was discussed and agreed upon with the patient as specifically documented in the above note. An opportunity to ask questions with explanation was provided. Patient voiced understanding on all information reviewed and discussed. Brief History The patient is a 61-year-old male who presents to the emergency department for evaluation of possible obstructive jaundice. The patient has a history of pancreatic cancer with a pancreatic head mass and is followed by Dr. Lopez. The patient was seen at the oncology center this morning and sent to the emergency department to be admitted for possible stent placement. Was going to be starting chemotherapy today per the patient. In June of this year had biopsy of pancreas (when he was diagnosed with pancreatic cancer), has gradually been more painful since then.The patient does note increasing pain over the last 2 weeks with increasing jaundice. The patient states the yellowing of the skin and eyes started 2 weeks ago and has progressed. He now complains of severe dark-colored urine, white colored stools. He does complain of increasing epigastric abdominal pain with nausea, vomiting, decreased appetite. Describes as stabbing. 9/10 on pain scale. Radiates to his back, located in epigastric area. Has been on methadone and morphine at home which helps some. No fever. Endorses nearly 110+ pound weight loss over last year. CBC/BMP: 10/10/17 0425 10/10/17 0425 Significant Findings Laboratory Tests Test 10/09/17 04:20 10/09/17 12:21 10/09/17 15:25 10/10/17 04:25 Red Blood Count 3.03 MIL/MM3 (4.50-5.90) 3.45 MIL/MM3 (4.50-5.90) Hemoglobin 8.7 GM/DL (13.0-17.0) 9.9 GM/DL (13.0-17.0) Hematocrit 25.2 % (39.0-51.0) 28.7 % (39.0-51.0) Platelet Count 99 TH/MM3 (150-450) 146 TH/MM3 (150-450) Neutrophils (%) (Auto) 70.6 % (16.0-70.0) 82.0 % (16.0-70.0) Monocytes (%) (Auto) 10.5 % (0.0-8.0) 9.0 % (0.0-8.0) Eosinophils (%) (Auto) 4.6 % (0.0-4.0) Platelet Estimate LOW (NORMAL) Creatinine 0.40 MG/DL (0.60-1.30) 0.36 MG/DL (0.60-1.30) Total Protein 5.4 GM/DL (6.4-8.2) 6.0 GM/DL (6.4-8.2) Albumin 2.1 GM/DL (3.4-5.0) 2.3 GM/DL (3.4-5.0) Calcium Level 8.2 MG/DL (8.5-10.1) 8.4 MG/DL (8.5-10.1) Alkaline Phosphatase 378 U/L (45-117) 494 U/L (45-117) Total Bilirubin 5.5 MG/DL (0.2-1.0) 6.6 MG/DL (0.2-1.0) Sodium Level 135 MEQ/L (136-145) 135 MEQ/L (136-145) Potassium Level 3.3 MEQ/L (3.5-5.1) 3.2 MEQ/L (3.5-5.1) Prothrombin Time 14.7 SEC (9.8-11.6) Activated Partial Thromboplast Time 31.1 SEC (24.3-30.1) Fibrinogen 419 mg/dL (227-377) Lymphocytes (%) (Auto) 7.8 % (9.0-44.0) Neutrophils # (Auto) 9.0 TH/MM3 (1.8-7.7) Lymphocytes # (Auto) 0.9 TH/MM3 (1.0-4.8) Monocytes # (Auto) 1.0 TH/MM3 (0-0.9) Aspartate Amino Transf (AST/SGOT) 51 U/L (15-37) Alanine Aminotransferase (ALT/SGPT) 80 U/L (12-78) Troponin I LESS THAN 0.02 NG/ML Test 10/10/17 10:54 Blood Gas HCO3 27 mmol/L (22-26) Blood Gas Base Excess 2.8 mmol/L (-2-2) Arterial Blood Partial Pressure CO2 44 mmHg (38-42) PE at Discharge GENERAL: This is a cachectic, notably jaundiced male laying in bed in some distress due to pain and shortness of breath. CARDIOVASCULAR: Regular rate and rhythm without murmurs, gallops, or rubs. RESPIRATORY: Tachypneic. Diminished breath sounds auscultated anteriorly. GASTROINTESTINAL: Abdomen soft, nondistended. Epigastric tenderness to palpation. No guarding. Biliary drain in place with overlying bandage clean dry and intact. MUSCULOSKELETAL: Extremities without clubbing, cyanosis, or edema. NEUROLOGICAL: Awake and alert. Motor and sensory grossly within normal limits. Normal speech. Pt Condition on Discharge: Stable Discharge Disposition: Hospice/Med Facility Discharge Instructions DIET: Follow Instructions for: As Tolerated, No Restrictions Activities you can perform: Regular-No Restrictions yT Baker MD R2 October 11, 2017 14:49
== END 2017-10-10 14:40 | disposition hospice, inpatient (51) | DRG 435 ==
LOC: NEPE 09:49 → NEDA 13:36 → NEPFCDU 17:36 → N06A 10-05 17:28 → HCIN 10-07 13:15
PROVIDERS: ADMIT Family Medicine; ATTEND Family Medicine
PROC: 0F9930Z Drainage of Common Bile Duct with Drainage Device, Percutaneous Approach (ICD-10-PCS; 2017-10-05)
PROC: 0DJ08ZZ Inspection of Upper Intestinal Tract, Via Natural or Artificial Opening Endoscopic (ICD-10-PCS; principal; 2017-10-05 12:05)
PROC: 0F793DZ Dilation of Common Bile Duct with Intraluminal Device, Percutaneous Approach (ICD-10-PCS; 2017-10-09)
PROC: 0F7 Hepatobiliary System and Pancreas, Dilation (ICD-10-PCS; 2017-10-09)
DX: C25.9 Malignant neoplasm of pancreas, unspecified (principal); K83.1 Obstruction of bile duct; R64 Cachexia; Z68.1 Body mass index [BMI] 19.9 or less, adult; J44.9 Chronic obstructive pulmonary disease, unspecified; E03.9 Hypothyroidism, unspecified; F17.210 Nicotine dependence, cigarettes, uncomplicated; I10 Essential (primary) hypertension; G89.3 Neoplasm related pain (acute) (chronic); Z91.19 Patient's noncompliance with other medical treatment and regimen; G89.29 Other chronic pain; M54.9 Dorsalgia, unspecified; E87.6 Hypokalemia; D69.6 Thrombocytopenia, unspecified; Z66 Do not resuscitate; Z85.820 Personal history of malignant melanoma of skin
CPT/HCPCS: 36600; 47534; 47538; 71045; 74177; 76000; 80053; 81001; 82805; 83605; 83690; 84484; 85025; 85027; 85384; 85610; 85730; 86022; 93005; 96361; 96374; 96375; 99152; 99153; C1729; C1769; C1876; C1887; J0330; J1170; J1610; J1650; J1956; J2060; J2250; J2270; J2370; J2405; J2805; J3010; J3480; J7030; J7040; Q9963; Q9967